=== PATIENT | male | born 1965 | race Hispanic/Latino ===

== ENCOUNTER 2017-06-27 12:11 | Inpatient (IN) | payer SELFPAY ==
[~2017-06-27] VITALS: Ht 190.5 cm; Wt 108.9 kg
[~2017-06-27 12:11] MED LIST: GABA-531 PO; HYDR-4060 PO; INS7030 SQ
[2017-06-27 12:43] LABS: BASOPHILS % (AUTO) 0.4 % (0.0-5.0); EOSINOPHILS % (AUTO) 0.9 % (0.0-8.0); HEMATOCRIT 31.2 % (42-54); LYMPHOCYTES % (AUTO) 14.8 % (21.0-51.0); MEAN CORPUSCULAR HEMOGLOBIN 28.5 pg (27.0-33.0); MEAN CORPUSCULAR HGB CONC 35.5 g/dL (32.0-36.0); MEAN CORPUSCULAR VOLUME 80.1 fL (79-99); MONOCYTES % (AUTO) 7.9 % (3.0-13.0); PLATELET COUNT (AUTO) 206 K/uL (130-400); RED BLOOD CELL COUNT(AUTO) 3.89 MIL/uL (4.50-6.20); RED CELL DISTRIBUTION WIDTH 15.5 % (11.0-15.5); WHITE BLOOD COUNT (AUTO) 7.2 K/uL (4.8-10.8)
[2017-06-27 12:48] LABS: CREATININE 1.1 mg/dL (0.5-1.5); POTASSIUM 3.9 mmol/L (3.5-5.1)
[2017-06-27 12:55] LABS: INR 0.97 (0.85-1.15); PARTIAL THROMBOPLASTIN TIME 24.3 SEC (26.3-35.5); PROTHROMBIN TIME 10.2 SEC (9.6-11.6)
[2017-06-27 13:04] LABS: ALBUMIN 2.9 g/dL (3.5-5.0); BILIRUBIN,DIRECT 0.1 mg/dL (0.0-0.3); BILIRUBIN,TOTAL 0.4 mg/dL (0.2-1.0); CREATINE KINASE MB 3.4 ng/mL (0.5-3.6)
[2017-06-27] MEDS ORDERED: FUROSEMIDE 10 MG/ML 4ML VIAL ONE (13:14)
[2017-06-27] MEDS ORDERED: NITROGLYCERIN 1GM/1 INCH PACKET TD ONE (13:15)
[2017-06-27 13:19] LABS: APPEARANCE,URINE Clear (CLEAR); BILIRUBIN,URINE Negative (NEGATIVE); COLOR,URINE Yellow (YELLOW); GLUCOSE, URINE (UA) Negative (NEGATIVE); KETONES,URINE Negative (NEGATIVE); LEUKOCYTE ESTERASE ,URINE Negative (NEGATIVE); NITRATE,URINE Negative (NEGATIVE); OCCULT BLOOD,URINE Trace (NEGATIVE); PROTEIN,URINE POS 2+ (NEGATIVE)
[2017-06-27] MEDS ORDERED: ONDANSETRON ODT 4 MG TAB ONE (13:22)
[2017-06-27 13:48] LABS: SQUAMOUS EPITHELIAL CELL,UR Few /HPF (0-2)
[2017-06-27 13:49] LABS: BACTERIA,URINE Rare /HPF (None Seen); WBC,URINE None Seen /HPF (0-1)
[2017-06-27] MEDS ORDERED: POTASSIUM CHLORIDE 20MEQ/100ML 100 ML IV PRN (17:15)
[2017-06-27] MEDS ORDERED: POTASSIUM CHLORIDE 20 MEQ ERTAB PO PRN (17:15)
[2017-06-27] MEDS ORDERED: ACETAMINOPHEN 325 MG TAB PO PRN (17:15)
[2017-06-27] MEDS ORDERED: ALBUTEROL SULFATE 0.083% 2.5 MG/3 ML INH IH PRN (17:15)
[2017-06-27] MEDS ORDERED: LIDOCAINE HCL-MPF 1% 2ML VIAL IVP PRN (17:15)
[2017-06-27] MEDS ORDERED: POTASSIUM CHLORIDE 10% ELIXIR 20 MEQ/15 ML UDCUP PO PRN (17:15)
[2017-06-27] MEDS ORDERED: LACTULOSE 20 GM/30 ML UDCUP PO PRN (17:15)
[2017-06-27 17:31] VITALS: BP 188/100
[2017-06-27] MEDS ORDERED: LISI10TA7 PO (17:39)
[2017-06-27] MEDS ORDERED: ISOS60TA4 PO (17:39)
[2017-06-27] MEDS ORDERED: INSU100I21 SQ (17:39)
[2017-06-27] MEDS ORDERED: HYDR100T27 PO (17:39)
[2017-06-27] MEDS ORDERED: METF10004 PO (17:39)
[2017-06-27] MEDS ORDERED: FURO40TA5 PO (17:39)
[2017-06-27] MEDS ORDERED: ATOR40TA71 PO (17:39)
[2017-06-27] MEDS ORDERED: METO-408 PO (17:39)
[2017-06-27] MEDS ORDERED: ASPI81TA40 PO (17:39)
[2017-06-27] MEDS ORDERED: SPIR25TA6 PO (17:39)
[2017-06-27] MEDS ORDERED: METO10TA3 PO (17:39)
[2017-06-27] MEDS ORDERED: CEPH500C2 PO (17:39)
[2017-06-27 19:25] VITALS: BP 178/81
[2017-06-27] MEDS ORDERED: ONDA4TAB10 PO (19:25)
[2017-06-27] MEDS: GUAIFENESIN-DM 200/20 MG 10 ML PO PRN (21:09)
[2017-06-27] MEDS: BUMETANIDE 0.25 MG/ML 4 ML VIAL IVP SCH (21:10)
[2017-06-27] MEDS: ONDANSETRON HCL MDV 20ML 2 MG/ML VIAL IV PRN (21:11)
[2017-06-27] MEDS: LEVOFLOXACIN 500 MG/D5W 100 ML 100 ML IV SCH (21:11)
[2017-06-27] MEDS: INSULIN HUMULIN R 100 UNIT/ML 3ML SQ SCH (21:33)
[2017-06-27 23:20] VITALS: BP 167/95
[2017-06-28] MEDS: GUAIFENESIN-DM 200/20 MG 10 ML PO PRN (01:11)
[2017-06-28 04:09] VITALS: BP 160/89
[2017-06-28] MEDS: INSULIN HUMULIN R 100 UNIT/ML 3ML SQ SCH ×4 (06:13→21:00)
[2017-06-28 06:32] LABS: HEMATOCRIT 29.9 % (42-54); MEAN CORPUSCULAR HEMOGLOBIN 28.5 pg (27.0-33.0); MEAN CORPUSCULAR VOLUME 81.4 fL (79-99); PLATELET COUNT (AUTO) 193 K/uL (130-400); RED BLOOD CELL COUNT(AUTO) 3.68 MIL/uL (4.50-6.20); RED CELL DISTRIBUTION WIDTH 15.5 % (11.0-15.5); WHITE BLOOD COUNT (AUTO) 6.7 K/uL (4.8-10.8)
[2017-06-28 06:37] LABS: CREATININE 1.2 mg/dL (0.5-1.5); MAGNESIUM 1.8 mg/dL (1.80-2.40); POTASSIUM 3.6 mmol/L (3.5-5.1)
[2017-06-28 06:51] LABS: B-TYPE NATRIURETIC PEPTIDE 730 pg/mL (0-100)
[2017-06-28 07:52] VITALS: BP 182/81
[2017-06-28] MEDS: BUMETANIDE 0.25 MG/ML 4 ML VIAL IVP SCH ×2 (08:13→21:29)
[2017-06-28] MEDS: PANTOPRAZOLE SODIUM 40 MG TABLET.DR PO SCH (08:14)
[2017-06-28] MEDS: HYDRALAZINE HCL 20 MG/ML VIAL IV PRN (08:27)
[2017-06-28 12:00] VITALS: BP 181/88
[2017-06-28] MEDS: METOCLOPRAMIDE 10 MG TABLET PO SCH ×2 (12:51→17:42)
[2017-06-28] MEDS: GABAPENTIN 300 MG CAPSULE PO SCH ×2 (14:17→21:30)
[2017-06-28 16:00] VITALS: BP 197/95
[2017-06-28] MEDS: METFORMIN HCL 500 MG TABLET PO SCH (17:57)
[2017-06-28 19:55] VITALS: BP 138/77
[2017-06-28] MEDS: LEVOFLOXACIN 500 MG/D5W 100 ML 100 ML IV SCH (21:29)
[2017-06-28] MEDS: ATORVASTATIN CALCIUM 40 MG TABLET PO SCH (21:30)
[2017-06-28] MEDS: METOPROLOL TARTRATE 25 MG TAB PO SCH (21:59)
[2017-06-28] MEDS: ONDANSETRON HCL MDV 20ML 2 MG/ML VIAL IV PRN (23:32)
[2017-06-28 23:51] VITALS: BP 125/67
[2017-06-29 04:00] VITALS: BP 125/75
[2017-06-29 05:57] LABS: CREATININE 1.6 mg/dL (0.5-1.5); POTASSIUM 3.8 mmol/L (3.5-5.1)
[2017-06-29] MEDS: INSULIN HUMULIN R 100 UNIT/ML 3ML SQ SCH ×4 (06:37→22:38)
[2017-06-29] MEDS: METOCLOPRAMIDE 10 MG TABLET PO SCH ×3 (06:43→19:12)
[2017-06-29 08:00] VITALS: BP 132/68
[2017-06-29] MEDS: SPIRONOLACTONE 25 MG TAB PO SCH (08:33)
[2017-06-29] MEDS: LISINOPRIL 10 MG TABLET PO SCH (08:33)
[2017-06-29] MEDS: PANTOPRAZOLE SODIUM 40 MG TABLET.DR PO SCH (08:33)
[2017-06-29] MEDS: ISOSORBIDE MONO 60 MG TAB.SR PO SCH (08:33)
[2017-06-29] MEDS: BUMETANIDE 0.25 MG/ML 4 ML VIAL IVP SCH ×2 (08:33→22:23)
[2017-06-29] MEDS: ASPIRIN 81 MG EC TAB PO SCH (08:33)
[2017-06-29] MEDS: METOPROLOL TARTRATE 25 MG TAB PO SCH ×2 (08:40→22:29)
[2017-06-29] MEDS: GABAPENTIN 300 MG CAPSULE PO SCH ×3 (08:41→22:23)
[2017-06-29 12:00] VITALS: BP 101/60
[2017-06-29] MEDS: METFORMIN HCL 500 MG TABLET PO SCH ×2 (12:22→19:12)
[2017-06-29 16:00] VITALS: BP 153/85
[2017-06-29 19:35] VITALS: BP 155/89
[2017-06-29] MEDS: ATORVASTATIN CALCIUM 40 MG TABLET PO SCH (22:23)
[2017-06-29] MEDS: LEVOFLOXACIN 500 MG/D5W 100 ML 100 ML IV SCH (22:23)
[2017-06-29 23:30] VITALS: BP 162/95
[2017-06-30] VITALS (14 sets, daily range): BP systolic 127–197; BP diastolic 61–105
[2017-06-30] MEDS: ONDANSETRON HCL MDV 20ML 2 MG/ML VIAL IV PRN ×3 (01:25→23:33)
[2017-06-30 03:52] LABS: HEMATOCRIT 27.2 % (42-54); MEAN CORPUSCULAR HEMOGLOBIN 27.8 pg (27.0-33.0); MEAN CORPUSCULAR HGB CONC 34.3 g/dL (32.0-36.0); PLATELET COUNT (AUTO) 176 K/uL (130-400); RED BLOOD CELL COUNT(AUTO) 3.36 MIL/uL (4.50-6.20); RED CELL DISTRIBUTION WIDTH 15.2 % (11.0-15.5); WHITE BLOOD COUNT (AUTO) 6.2 K/uL (4.8-10.8)
[2017-06-30 04:15] LABS: B-TYPE NATRIURETIC PEPTIDE 456 pg/mL (0-100)
[2017-06-30 04:17] LABS: CREATININE 1.9 mg/dL (0.5-1.5); POTASSIUM 3.9 mmol/L (3.5-5.1)
[2017-06-30] MEDS: INSULIN HUMULIN R 100 UNIT/ML 3ML SQ SCH ×4 (06:05→21:00)
[2017-06-30] MEDS: METOCLOPRAMIDE 10 MG TABLET PO SCH ×3 (06:32→16:51)
[2017-06-30] MEDS: LIDOCAINE HCL 1% 20 ML VIAL INJ SCH ×2 (09:30→15:40)
[2017-06-30] MEDS: ASPIRIN 81 MG EC TAB PO SCH (09:46)
[2017-06-30] MEDS: LISINOPRIL 10 MG TABLET PO SCH (09:46)
[2017-06-30] MEDS: GABAPENTIN 300 MG CAPSULE PO SCH ×3 (09:46→19:57)
[2017-06-30] MEDS: PANTOPRAZOLE SODIUM 40 MG TABLET.DR PO SCH (09:46)
[2017-06-30] MEDS: SPIRONOLACTONE 25 MG TAB PO SCH (09:46)
[2017-06-30] MEDS: BUMETANIDE 0.25 MG/ML 4 ML VIAL IVP SCH (09:47)
[2017-06-30] MEDS: METOPROLOL TARTRATE 25 MG TAB PO SCH ×2 (09:47→19:57)
[2017-06-30] MEDS: ISOSORBIDE MONO 60 MG TAB.SR PO SCH (09:47)
[2017-06-30] MEDS: METFORMIN HCL 500 MG TABLET PO SCH ×2 (13:06→15:55)
[2017-06-30] MEDS: GUAIFENESIN-DM 200/20 MG 10 ML PO PRN ×2 (16:54→23:33)
[2017-06-30 17:13] LABS: APPEARANCE BODY FLUID SLIGHTLY CLOUDY (CLEAR); COLOR,BODY FLUID YELLOW (LT YELLOW); SPECIMENTYPE,BODY FLUID PLEURAL; TOTAL VOLUME,BODY FLUID 70 mL
[2017-06-30 17:14] LABS: BODY FLUID RBC 800 /cu. mm.; BODY FLUID WBC 27 /cu. mm.
[2017-06-30 17:36] LABS: BF LYMPHOCYTE 86 %; BF MONOCYTE 5 %
[2017-06-30] MEDS: LEVOFLOXACIN 500 MG/D5W 100 ML 100 ML IV SCH (19:56)
[2017-06-30] MEDS: HYDRALAZINE HCL 20 MG/ML VIAL IV PRN (19:56)
[2017-06-30] MEDS: ATORVASTATIN CALCIUM 40 MG TABLET PO SCH (19:57)
[2017-07-01] MEDS ORDERED: LOPERAMIDE HCL 2 MG CAP PO SCH (01:45)
[2017-07-01 03:45] VITALS: BP 154/92
[2017-07-01] MEDS: GUAIFENESIN-DM 200/20 MG 10 ML PO PRN (05:13)
[2017-07-01 05:21] LABS: BASOPHILS % (AUTO) 0.4 % (0.0-5.0); HEMATOCRIT 26.8 % (42-54); MEAN CORPUSCULAR HEMOGLOBIN 28.2 pg (27.0-33.0); MEAN CORPUSCULAR VOLUME 80.4 fL (79-99); MONOCYTES % (AUTO) 10.1 % (3.0-13.0); NEUTROPHILS % (AUTO) 70.5 % (40.0-77.0); PLATELET COUNT (AUTO) 185 K/uL (130-400); RED BLOOD CELL COUNT(AUTO) 3.33 MIL/uL (4.50-6.20); RED CELL DISTRIBUTION WIDTH 15.3 % (11.0-15.5)
[2017-07-01 05:28] LABS: CREATININE 1.7 mg/dL (0.5-1.5)
[2017-07-01] MEDS: INSULIN HUMULIN R 100 UNIT/ML 3ML SQ SCH ×2 (06:52→11:30)
[2017-07-01 07:00] VITALS: BP 167/98
[2017-07-01] MEDS: SPIRONOLACTONE 25 MG TAB PO SCH (09:21)
[2017-07-01] MEDS: ASPIRIN 81 MG EC TAB PO SCH (09:21)
[2017-07-01] MEDS: METOCLOPRAMIDE 10 MG TABLET PO SCH ×2 (09:21→12:50)
[2017-07-01] MEDS: ISOSORBIDE MONO 60 MG TAB.SR PO SCH (09:21)
[2017-07-01] MEDS: GABAPENTIN 300 MG CAPSULE PO SCH (09:21)
[2017-07-01] MEDS: METOPROLOL TARTRATE 25 MG TAB PO SCH (09:22)
[2017-07-01] MEDS: LISINOPRIL 10 MG TABLET PO SCH (09:22)
[2017-07-01] MEDS: PANTOPRAZOLE SODIUM 40 MG TABLET.DR PO SCH (09:22)
[2017-07-01] MEDS: BUMETANIDE 0.25 MG/ML 4 ML VIAL IVP SCH (09:22)
[2017-07-01 11:00] VITALS: BP 166/93
[2017-07-01] MEDS: METFORMIN HCL 500 MG TABLET PO SCH (12:50)
[2017-07-01] MEDS ORDERED: LEVO250T2 PO (13:32)
== END 2017-07-01 14:29 | disposition home or self-care (01) | DRG 291 ==
LOC: EDH 12:11 → EDHIP 12:12 → 3AH 17:12
PROVIDERS: ADMIT Family Medicine; ATTEND Family Medicine
PROC: 0W9B3ZZ Drainage of Left Pleural Cavity, Percutaneous Approach (ICD-10-PCS; principal; 2017-06-30)
DX: I11.0 Hypertensive heart disease with heart failure (principal); J18.9 Pneumonia, unspecified organism; N17.0 Acute kidney failure with tubular necrosis; J90 Pleural effusion, not elsewhere classified; E11.9 Type 2 diabetes mellitus without complications; I50.9 Heart failure, unspecified; E66.01 Morbid (severe) obesity due to excess calories; T50.2X5A Adverse effect of carbonic-anhydrase inhibitors, benzothiadiazides and other diuretics, initial encounter; Z82.49 Family history of ischemic heart disease and other diseases of the circulatory system; Y92.89 Other specified places as the place of occurrence of the external cause
CPT/HCPCS: 32555; 36415; 71045; 80048; 80076; 81001; 82550; 82553; 82948; 83615; 83735; 83880; 84157; 84484; 85025; 85027; 85610; 85730; 87071; 87205; 89051; 93005; 94640; 94664; 99291; J0360; J1815; J1940; J1956; J3490

== ENCOUNTER 2017-07-07 21:30 | Observation (INO) | payer SELFPAY ==
[~2017-07-07] VITALS: Ht 190.5 cm; Wt 106.1 kg
[~2017-07-07 21:30] MED LIST changes: +ASPI81TA40 PO; +ATOR40TA71 PO; +FURO40TA5 PO; +HYDR100T27 PO; -INS7030 SQ; +INSU100I21 SQ; +ISOS60TA4 PO; +LEVO250T2 PO; +LISI10TA7 PO; +METF10004 PO; +METO-408 PO; +METO10TA3 PO; +ONDA4TAB10 PO; +SPIR25TA6 PO
[2017-07-07] MEDS ORDERED: ASPIRIN 325 MG TABLET ONE (21:42)
[2017-07-07 21:48] LABS: BASOPHILS % (AUTO) 0.4 % (0.0-5.0); EOSINOPHILS % (AUTO) 1.3 % (0.0-8.0); HEMATOCRIT 31.8 % (42-54); LYMPHOCYTES % (AUTO) 23.9 % (21.0-51.0); MEAN CORPUSCULAR HEMOGLOBIN 28.3 pg (27.0-33.0); MEAN CORPUSCULAR HGB CONC 34.8 g/dL (32.0-36.0); MEAN CORPUSCULAR VOLUME 81.4 fL (79-99); MONOCYTES % (AUTO) 7.1 % (3.0-13.0); NEUTROPHILS % (AUTO) 67.3 % (40.0-77.0); PLATELET COUNT (AUTO) 256 K/uL (130-400); RED CELL DISTRIBUTION WIDTH 15.5 % (11.0-15.5); WHITE BLOOD COUNT (AUTO) 7.5 K/uL (4.8-10.8)
[2017-07-07 21:59] LABS: CREATININE 1.4 mg/dL (0.5-1.5); POTASSIUM 3.7 mmol/L (3.5-5.1)
[2017-07-07 22:01] LABS: INR 0.95 (0.85-1.15); PARTIAL THROMBOPLASTIN TIME 23.3 SEC (26.3-35.5)
[2017-07-07 22:12] LABS: ALBUMIN 3.1 g/dL (3.5-5.0); BILIRUBIN,TOTAL 0.4 mg/dL (0.2-1.0); CREATINE KINASE MB 7.3 ng/mL (0.5-3.6)
[2017-07-07] MEDS ORDERED: ONDANSETRON HCL MDV 20ML 2 MG/ML VIAL ONE (22:14)
[2017-07-08] MEDS ORDERED: POTASSIUM CHLORIDE 20 MEQ ERTAB PO PRN (02:00)
[2017-07-08] MEDS ORDERED: NITROGLYCERIN 0.4 MG SL TAB SL PRN (02:00)
[2017-07-08] MEDS ORDERED: GLUCAGON 1MG KIT 1 MG ML IM PRN (02:00)
[2017-07-08] MEDS ORDERED: LIDOCAINE HCL-MPF 1% 2ML VIAL IVP PRN (02:00)
[2017-07-08] MEDS ORDERED: POTASSIUM CHLORIDE 10% ELIXIR 20 MEQ/15 ML UDCUP PO PRN (02:00)
[2017-07-08] MEDS ORDERED: POTASSIUM CHLORIDE 20MEQ/100ML 100 ML IV PRN (02:00)
[2017-07-08] MEDS ORDERED: HYDRALAZINE HCL 20 MG/ML VIAL IV PRN (02:00)
[2017-07-08] MEDS ORDERED: DEXTROSE 50%-WATER 50 ML DISP.SYRIN IV PRN (02:00)
[2017-07-08] MEDS ORDERED: FAMOTIDINE 20MG TAB 20 MG TAB PO SCH (02:00)
[2017-07-08] MEDS ORDERED: ACETAMINOPHEN EXTRA STRENGTH 500 MG TABLET ONE (04:53)
[2017-07-08] MEDS ORDERED: NITROGLYCERIN 1GM/1 INCH PACKET TD ONE (04:53)
[2017-07-08 05:33] LABS: CREATINE KINASE MB 4.8 ng/mL (0.5-3.6); CREATININE 1.2 mg/dL (0.5-1.5); POTASSIUM 4.1 mmol/L (3.5-5.1)
[2017-07-08] MEDS: INSULIN HUMULIN R 100 UNIT/ML 3ML SQ SCH ×4 (07:30→22:02)
[2017-07-08] MEDS ORDERED: ASPIRIN 81MG TAB.CHEW ONE (08:12)
[2017-07-08] MEDS ORDERED: FUROSEMIDE 40 MG TABLET ONE (08:12)
[2017-07-08] MEDS ORDERED: ENOXAPARIN SODIUM 40 MG/0.4 ML SYRINGE SQ ONE (08:13)
[2017-07-08] MEDS ORDERED: INSULIN HUMULIN R 100 UNIT/ML 3ML ONE (08:14)
[2017-07-08] MEDS: ASPIRIN 81MG TAB.CHEW PO SCH (08:20)
[2017-07-08] MEDS: ENOXAPARIN SODIUM 40 MG/0.4 ML SYRINGE SQ SCH (08:21)
[2017-07-08] MEDS: FUROSEMIDE 40 MG TABLET PO SCH ×2 (08:21→21:53)
[2017-07-08 09:26] VITALS: BP 146/90
[2017-07-08 12:00] VITALS: BP 186/93
[2017-07-08 16:00] VITALS: BP 185/103
[2017-07-08] MEDS: ONDANSETRON HCL MDV 20ML 2 MG/ML VIAL IVP PRN (18:14)
[2017-07-08 20:06] VITALS: BP 161/91
[2017-07-08] MEDS: METOPROLOL TARTRATE 25 MG TAB PO SCH (21:52)
[2017-07-08] MEDS: HYDRALAZINE HCL 25 MG TABLET PO SCH (21:53)
[2017-07-09 00:50] VITALS: BP 146/88
[2017-07-09 04:33] VITALS: BP 160/97
[2017-07-09 05:54] LABS: BASOPHILS % (AUTO) 0.7 % (0.0-5.0); EOSINOPHILS % (AUTO) 2.7 % (0.0-8.0); HEMATOCRIT 29.9 % (42-54); LYMPHOCYTES % (AUTO) 26.5 % (21.0-51.0); MEAN CORPUSCULAR HEMOGLOBIN 29.1 pg (27.0-33.0); MEAN CORPUSCULAR HGB CONC 36.2 g/dL (32.0-36.0); MEAN CORPUSCULAR VOLUME 80.5 fL (79-99); MONOCYTES % (AUTO) 8.8 % (3.0-13.0); NEUTROPHILS % (AUTO) 61.3 % (40.0-77.0); PLATELET COUNT (AUTO) 224 K/uL (130-400); RED BLOOD CELL COUNT(AUTO) 3.72 MIL/uL (4.50-6.20); RED CELL DISTRIBUTION WIDTH 15.2 % (11.0-15.5)
[2017-07-09] MEDS: INSULIN HUMULIN R 100 UNIT/ML 3ML SQ SCH ×3 (06:31→16:30)
[2017-07-09 07:48] VITALS: BP 183/100
[2017-07-09] MEDS ORDERED: LISINOPRIL 10 MG TABLET PO SCH (08:00)
[2017-07-09] MEDS ORDERED: SPIRONOLACTONE 25 MG TAB PO SCH (09:00)
[2017-07-09] MEDS ORDERED: ISOSORBIDE MONO 60 MG TAB.SR PO SCH (09:00)
[2017-07-09] MEDS: HYDRALAZINE HCL 25 MG TABLET PO SCH ×3 (10:25→16:59)
[2017-07-09] MEDS: FUROSEMIDE 40 MG TABLET PO SCH (10:25)
[2017-07-09] MEDS: METOPROLOL TARTRATE 25 MG TAB PO SCH (10:26)
[2017-07-09] MEDS: ASPIRIN 81MG TAB.CHEW PO SCH (10:26)
[2017-07-09] MEDS: ENOXAPARIN SODIUM 40 MG/0.4 ML SYRINGE SQ SCH (10:27)
[2017-07-09] MEDS: ONDANSETRON HCL MDV 20ML 2 MG/ML VIAL IVP PRN ×2 (10:30→16:59)
[2017-07-09 12:00] VITALS: BP 154/85
[2017-07-09 16:00] VITALS: BP 135/79
== END 2017-07-09 19:15 | disposition home or self-care (01) ==
LOC: EDH 21:30 → EDHIP 21:31 → 4CH 07-08 08:47
PROVIDERS: ADMIT Internal Medicine Nephrology; ATTEND Internal Medicine Nephrology
DX: R07.89 Other chest pain (principal); I11.0 Hypertensive heart disease with heart failure; I50.9 Heart failure, unspecified; R74.8 Abnormal levels of other serum enzymes; E11.65 Type 2 diabetes mellitus with hyperglycemia; E78.5 Hyperlipidemia, unspecified; K21.9 Gastro-esophageal reflux disease without esophagitis; Z82.49 Family history of ischemic heart disease and other diseases of the circulatory system; Z83.3 Family history of diabetes mellitus
CPT/HCPCS: 36415 ×3; 71045; 80048; 80053; 82550 ×2; 82553 ×2; 82948 ×7; 83874 ×2; 83880; 84484 ×3; 85025 ×2; 85610; 85730; 93005 ×3; 96372 ×2; 99285; G0378 ×46; J1650 ×2; J1815 ×5; J0360

== ENCOUNTER 2017-07-21 09:36 | Inpatient (IN) | payer SELFPAY ==
[~2017-07-21] VITALS: Ht 190.5 cm; Wt 121.4 kg
[~2017-07-21 09:36] MED LIST changes: -LEVO250T2 PO
[2017-07-21] MEDS ORDERED: ACETAMINOPHEN EXTRA STRENGTH 500 MG TABLET ONE (09:42)
[2017-07-21 10:08] LABS: BASOPHILS % (AUTO) 0.3 % (0.0-5.0); EOSINOPHILS % (AUTO) 1.1 % (0.0-8.0); HEMATOCRIT 33.2 % (42-54); LYMPHOCYTES % (AUTO) 10.2 % (21.0-51.0); MEAN CORPUSCULAR HEMOGLOBIN 27.7 pg (27.0-33.0); MEAN CORPUSCULAR VOLUME 81.4 fL (79-99); MONOCYTES % (AUTO) 5.5 % (3.0-13.0); NEUTROPHILS % (AUTO) 82.9 % (40.0-77.0); PLATELET COUNT (AUTO) 214 K/uL (130-400); RED BLOOD CELL COUNT(AUTO) 4.08 MIL/uL (4.50-6.20); RED CELL DISTRIBUTION WIDTH 15.2 % (11.0-15.5); WHITE BLOOD COUNT (AUTO) 6.4 K/uL (4.8-10.8)
[2017-07-21 10:17] LABS: CARBON DIOXIDE 28 mmol/L (21-32); CHLORIDE 106 mmol/L (101-111); CREATININE 1.4 mg/dL (0.5-1.5); GLOMERULAR FILTR. RATE CALC 57 mL/min (>60); GLUCOSE,RANDOM 118 mg/dL (70-105); POTASSIUM 4.8 mmol/L (3.5-5.1); SODIUM SERUM 143 mmol/L (136-145); UREA NITROGEN, BLOOD 25 mg/dL (7-18)
[2017-07-21 10:18] LABS: INR 0.89 (0.85-1.15); PARTIAL THROMBOPLASTIN TIME 22.6 SEC (26.3-35.5); PROTHROMBIN TIME 9.4 SEC (9.6-11.6)
[2017-07-21 10:31] LABS: ALANINE AMINOTRANSFERASE 32 U/L (12-78); ALBUMIN 3.2 g/dL (3.5-5.0); ASPARTATE AMINOTRANSFERASE 24 U/L (10-37); BILIRUBIN,TOTAL 0.2 mg/dL (0.2-1.0); CREATINE KINASE MB 6.9 ng/mL (0.5-3.6); CREATINE KINASE, TOTAL 262 U/L (21-232); MYOGLOBIN 194 ng/mL (10-92); TROPONIN I < 0.04 ng/mL (0.00-0.06)
[2017-07-21] MEDS ORDERED: NITROGLYCERIN 1GM/1 INCH PACKET TD ONE (10:34)
[2017-07-21] MEDS ORDERED: ASPIRIN 325 MG TABLET ONE (10:34)
[2017-07-21] MEDS ORDERED: ONDANSETRON HCL MDV 20ML 2 MG/ML VIAL ONE (10:34)
[2017-07-21] MEDS ORDERED: LEVOFLOXACIN 750 MG/D5W 150 ML 150 ML ONE (11:25)
[2017-07-21 11:30] LABS: APPEARANCE,URINE Clear (CLEAR); BILIRUBIN,URINE Negative (NEGATIVE); COLOR,URINE Yellow (YELLOW); GLUCOSE, URINE (UA) Negative (NEGATIVE); KETONES,URINE Negative (NEGATIVE); LEUKOCYTE ESTERASE ,URINE Negative (NEGATIVE); NITRATE,URINE Negative (NEGATIVE); OCCULT BLOOD,URINE Negative (NEGATIVE); PROTEIN,URINE POS 2+ (NEGATIVE)
[2017-07-21 12:05] LABS: BACTERIA,URINE None Seen /HPF (None Seen); RBC,URINE None Seen /HPF (0-1); WBC,URINE None Seen /HPF (0-1)
[2017-07-21 14:35] VITALS: BP 130/73
[2017-07-21] MEDS ORDERED: LACTULOSE 20 GM/30 ML UDCUP PO PRN (14:45)
[2017-07-21] MEDS ORDERED: HYDRALAZINE HCL 20 MG/ML VIAL IV PRN (14:45)
[2017-07-21] MEDS ORDERED: ACETAMINOPHEN 325 MG TAB PO PRN (14:45)
[2017-07-21] MEDS ORDERED: IBUP-2077 PO (14:55)
[2017-07-21 16:06] VITALS: BP 130/69
[2017-07-21] MEDS ORDERED: SODIUM CHLORIDE 0.9% 1000ML 1,000 ML IV SCH (16:15)
[2017-07-21] MEDS ORDERED: IPRATROPIUM/ALBUTEROL SULFATE 3 ML SOLUTION IH PRN ×2 (16:15)
[2017-07-21] MEDS: SODIUM CHLORIDE 0.9% 1000ML 1,000 ML IV SCH (16:59)
[2017-07-21] MEDS: METHYLPREDNISOLONE SOD SUCC 40MG/ML 1ML IVP SCH (16:59)
[2017-07-21] MEDS: CEFTRIAXONE SODIUM 1 GM IVP SCH (16:59)
[2017-07-21] MEDS: ONDANSETRON HCL MDV 20ML 2 MG/ML VIAL IV PRN (17:16)
[2017-07-21] MEDS: GUAIFENESIN-DM 200/20 MG 10 ML PO PRN (17:58)
[2017-07-21] MEDS: IPRATROPIUM/ALBUTEROL SULFATE 3 ML SOLUTION IH SCH ×2 (18:50→23:53)
[2017-07-21 19:40] VITALS: BP 206/98
[2017-07-21 20:45] VITALS: BP 160/90
[2017-07-21] MEDS: GABAPENTIN 300 MG CAPSULE PO SCH (21:40)
[2017-07-21] MEDS: ATORVASTATIN CALCIUM 40 MG TABLET PO SCH (21:40)
[2017-07-21] MEDS: HYDRALAZINE HCL 25 MG TABLET PO SCH (21:41)
[2017-07-21] MEDS: FUROSEMIDE 40 MG TABLET PO SCH (21:41)
[2017-07-21] MEDS: INSULIN HUMULIN R 100 UNIT/ML 3ML SQ SCH (22:08)
[2017-07-21 23:28] VITALS: BP 177/93
[2017-07-22] MEDS: INSULIN HUMULIN R 100 UNIT/ML 3ML SQ SCH ×4 (01:34→21:23)
[2017-07-22] MEDS: METHYLPREDNISOLONE SOD SUCC 40MG/ML 1ML IVP SCH ×3 (01:36→17:17)
[2017-07-22 03:43] LABS: BASOPHILS % (AUTO) 0.1 % (0.0-5.0); HEMATOCRIT 29.7 % (42-54); LYMPHOCYTES % (AUTO) 3.4 % (21.0-51.0); MEAN CORPUSCULAR HEMOGLOBIN 27.6 pg (27.0-33.0); MEAN CORPUSCULAR HGB CONC 33.6 g/dL (32.0-36.0); NEUTROPHILS % (AUTO) 92.5 % (40.0-77.0); PLATELET COUNT (AUTO) 147 K/uL (130-400); RED BLOOD CELL COUNT(AUTO) 3.62 MIL/uL (4.50-6.20); RED CELL DISTRIBUTION WIDTH 15.2 % (11.0-15.5); WHITE BLOOD COUNT (AUTO) 11.2 K/uL (4.8-10.8)
[2017-07-22 03:48] VITALS: BP 126/79
[2017-07-22 03:54] LABS: CREATININE 1.9 mg/dL (0.5-1.5); MAGNESIUM 1.8 mg/dL (1.80-2.40); POTASSIUM 5.7 mmol/L (3.5-5.1)
[2017-07-22] MEDS: SODIUM CHLORIDE 0.9% 1000ML 1,000 ML IV SCH ×2 (05:05→17:19)
[2017-07-22] MEDS: IPRATROPIUM/ALBUTEROL SULFATE 3 ML SOLUTION IH SCH ×4 (05:59→23:38)
[2017-07-22 07:32] VITALS: BP 154/89
[2017-07-22] MEDS: HYDRALAZINE HCL 25 MG TABLET PO SCH ×4 (08:57→20:14)
[2017-07-22] MEDS: LISINOPRIL 10 MG TABLET PO SCH (08:57)
[2017-07-22] MEDS: ASPIRIN 81 MG EC TAB PO SCH (08:57)
[2017-07-22] MEDS: ISOSORBIDE MONO 60 MG TAB.SR PO SCH (08:57)
[2017-07-22] MEDS: PANTOPRAZOLE SODIUM 40 MG TABLET.DR PO SCH (08:57)
[2017-07-22] MEDS: GABAPENTIN 300 MG CAPSULE PO SCH ×3 (08:58→20:14)
[2017-07-22] MEDS: SPIRONOLACTONE 25 MG TAB PO SCH (08:58)
[2017-07-22] MEDS: ENOXAPARIN SODIUM 30 MG/0.3 ML SQ SCH (09:00)
[2017-07-22] MEDS: Metoprolol Succinate 25 MG PO SCH (09:00)
[2017-07-22] MEDS: INSULIN GLARGINE 100 UNITS/ML 10 ML VIAL SQ SCH (09:04)
[2017-07-22] MEDS: FUROSEMIDE 40 MG TABLET PO SCH ×2 (09:05→20:15)
[2017-07-22] MEDS: ONDANSETRON HCL MDV 20ML 2 MG/ML VIAL IV PRN (09:13)
[2017-07-22 10:58] VITALS: BP 144/73
[2017-07-22] MEDS: LEVOFLOXACIN 500 MG/D5W 100 ML 100 ML IV SCH (11:46)
[2017-07-22] MEDS: GUAIFENESIN-DM 200/20 MG 10 ML PO PRN (11:50)
[2017-07-22] MEDS: METFORMIN HCL 500 MG TABLET PO SCH ×2 (11:50→17:17)
[2017-07-22] MEDS ORDERED: SODIUM POLYSTYRENE SULFONATE 15 GM/60 ML ML PO SCH (14:00)
[2017-07-22 16:05] VITALS: BP 152/76
[2017-07-22] MEDS: CEFTRIAXONE SODIUM 1 GM IVP SCH (17:15)
[2017-07-22 19:07] VITALS: BP 140/73
[2017-07-22] MEDS: ATORVASTATIN CALCIUM 40 MG TABLET PO SCH (20:15)
[2017-07-22 23:30] VITALS: BP 125/64
[2017-07-23] MEDS: METHYLPREDNISOLONE SOD SUCC 40MG/ML 1ML IVP SCH ×3 (00:30→16:54)
[2017-07-23 03:19] VITALS: BP 139/74
[2017-07-23 03:57] LABS: HEMATOCRIT 26.7 % (42-54); MEAN CORPUSCULAR HEMOGLOBIN 28.9 pg (27.0-33.0); MEAN CORPUSCULAR HGB CONC 34.9 g/dL (32.0-36.0); MEAN CORPUSCULAR VOLUME 82.8 fL (79-99); PLATELET COUNT (AUTO) 168 K/uL (130-400); RED BLOOD CELL COUNT(AUTO) 3.23 MIL/uL (4.50-6.20); RED CELL DISTRIBUTION WIDTH 15.6 % (11.0-15.5); WHITE BLOOD COUNT (AUTO) 11.9 K/uL (4.8-10.8)
[2017-07-23 04:06] LABS: CREATININE 1.8 mg/dL (0.5-1.5); POTASSIUM 4.9 mmol/L (3.5-5.1)
[2017-07-23 04:11] LABS: HEMOGLOBIN A1C 7.9 % (4.0-6.0)
[2017-07-23] MEDS: IPRATROPIUM/ALBUTEROL SULFATE 3 ML SOLUTION IH SCH ×4 (05:56→23:10)
[2017-07-23] MEDS: GUAIFENESIN-DM 200/20 MG 10 ML PO PRN ×2 (06:16→21:35)
[2017-07-23] MEDS: INSULIN HUMULIN R 100 UNIT/ML 3ML SQ SCH ×4 (06:17→21:23)
[2017-07-23 07:00] VITALS: BP 167/89
[2017-07-23] MEDS: Metoprolol Succinate 25 MG PO SCH (09:00)
[2017-07-23] MEDS: HYDRALAZINE HCL 25 MG TABLET PO SCH ×4 (09:29→21:25)
[2017-07-23] MEDS: SPIRONOLACTONE 25 MG TAB PO SCH (09:29)
[2017-07-23] MEDS: FUROSEMIDE 40 MG TABLET PO SCH ×2 (09:29→21:24)
[2017-07-23] MEDS: ASPIRIN 81 MG EC TAB PO SCH (09:30)
[2017-07-23] MEDS: LISINOPRIL 10 MG TABLET PO SCH (09:30)
[2017-07-23] MEDS: GABAPENTIN 300 MG CAPSULE PO SCH ×3 (09:30→21:24)
[2017-07-23] MEDS: ISOSORBIDE MONO 60 MG TAB.SR PO SCH (09:30)
[2017-07-23] MEDS: ENOXAPARIN SODIUM 30 MG/0.3 ML SQ SCH (09:30)
[2017-07-23] MEDS: PANTOPRAZOLE SODIUM 40 MG TABLET.DR PO SCH (09:30)
[2017-07-23] MEDS: INSULIN GLARGINE 100 UNITS/ML 10 ML VIAL SQ SCH (09:32)
[2017-07-23] MEDS: ONDANSETRON HCL MDV 20ML 2 MG/ML VIAL IV PRN ×2 (09:44→21:36)
[2017-07-23 11:00] VITALS: BP 178/94
[2017-07-23] MEDS: LEVOFLOXACIN 500 MG/D5W 100 ML 100 ML IV SCH (12:31)
[2017-07-23] MEDS: METFORMIN HCL 500 MG TABLET PO SCH ×2 (12:31→16:54)
[2017-07-23] MEDS: SODIUM CHLORIDE 0.9% 1000ML 1,000 ML IV SCH (14:08)
[2017-07-23 16:00] VITALS: BP 180/86
[2017-07-23] MEDS: CEFTRIAXONE SODIUM 1 GM IVP SCH (16:54)
[2017-07-23 19:09] VITALS: BP 154/88
[2017-07-23] MEDS ORDERED: INSULIN GLARGINE 100 UNITS/ML 10 ML VIAL SQ SCH (21:00)
[2017-07-23] MEDS: ATORVASTATIN CALCIUM 40 MG TABLET PO SCH (21:24)
[2017-07-23 23:21] VITALS: BP 140/79
[2017-07-24] MEDS: GUAIFENESIN-DM 200/20 MG 10 ML PO PRN ×2 (02:05→06:05)
[2017-07-24 03:20] VITALS: BP 114/60
[2017-07-24 03:51] LABS: HEMATOCRIT 27.2 % (42-54); MEAN CORPUSCULAR HEMOGLOBIN 27.6 pg (27.0-33.0); MEAN CORPUSCULAR HGB CONC 33.4 g/dL (32.0-36.0); MEAN CORPUSCULAR VOLUME 82.6 fL (79-99); PLATELET COUNT (AUTO) 175 K/uL (130-400); RED BLOOD CELL COUNT(AUTO) 3.29 MIL/uL (4.50-6.20); RED CELL DISTRIBUTION WIDTH 15.5 % (11.0-15.5); WHITE BLOOD COUNT (AUTO) 12.9 K/uL (4.8-10.8)
[2017-07-24 04:12] LABS: CREATININE 1.7 mg/dL (0.5-1.5); POTASSIUM 4.1 mmol/L (3.5-5.1)
[2017-07-24] MEDS: IPRATROPIUM/ALBUTEROL SULFATE 3 ML SOLUTION IH SCH ×2 (06:00→11:09)
[2017-07-24 07:00] VITALS: BP 133/74
[2017-07-24] MEDS: INSULIN HUMULIN R 100 UNIT/ML 3ML SQ SCH ×2 (07:17→11:00)
[2017-07-24] MEDS: INSULIN GLARGINE 100 UNITS/ML 10 ML VIAL SQ SCH (08:00)
[2017-07-24] MEDS: HYDRALAZINE HCL 25 MG TABLET PO SCH (08:21)
[2017-07-24] MEDS: FUROSEMIDE 40 MG TABLET PO SCH (08:21)
[2017-07-24] MEDS: PANTOPRAZOLE SODIUM 40 MG TABLET.DR PO SCH (08:22)
[2017-07-24] MEDS: SPIRONOLACTONE 25 MG TAB PO SCH (08:22)
[2017-07-24] MEDS: GABAPENTIN 300 MG CAPSULE PO SCH (08:22)
[2017-07-24] MEDS: LISINOPRIL 10 MG TABLET PO SCH (08:22)
[2017-07-24] MEDS: ISOSORBIDE MONO 60 MG TAB.SR PO SCH (08:22)
[2017-07-24] MEDS: ASPIRIN 81 MG EC TAB PO SCH (08:22)
[2017-07-24] MEDS: ENOXAPARIN SODIUM 30 MG/0.3 ML SQ SCH (08:23)
[2017-07-24] MEDS: Metoprolol Succinate 25 MG PO SCH (08:23)
[2017-07-24] MEDS: SODIUM CHLORIDE 0.9% 1000ML 1,000 ML IV SCH (09:51)
[2017-07-24 11:00] VITALS: BP 121/68
== END 2017-07-24 13:00 | disposition home or self-care (01) | DRG 871 ==
LOC: EDH 09:36 → EDHIP 09:37 → 2AH 14:28
PROVIDERS: ADMIT Family Medicine; ATTEND Family Medicine
DX: A41.9 Sepsis, unspecified organism (principal); J18.9 Pneumonia, unspecified organism; J96.00 Acute respiratory failure, unspecified whether with hypoxia or hypercapnia; I11.0 Hypertensive heart disease with heart failure; K31.84 Gastroparesis; I50.9 Heart failure, unspecified; E10.43 Type 1 diabetes mellitus with diabetic autonomic (poly)neuropathy; E66.9 Obesity, unspecified; J20.9 Acute bronchitis, unspecified; G89.29 Other chronic pain; M54.2 Cervicalgia; K21.9 Gastro-esophageal reflux disease without esophagitis; E78.5 Hyperlipidemia, unspecified; Z82.49 Family history of ischemic heart disease and other diseases of the circulatory system; Z68.33 Body mass index [BMI] 33.0-33.9, adult; Z79.899 Other long term (current) drug therapy
CPT/HCPCS: 36415; 71045; 80048; 80053; 81001; 82550; 82553; 82948; 83036; 83605; 83735; 83874; 83880; 84484; 85025; 85027; 85610; 85730; 87040; 87088; 87633; 93005; 94640; 94664; 99291; A4218; J0360; J0696; J1650; J1815; J1956; J2920; J7030

== ENCOUNTER 2017-08-02 12:26 | Inpatient (IN) | payer SELFPAY ==
[~2017-08-02] VITALS: Ht 190.5 cm; Wt 116.5 kg
[~2017-08-02 12:26] MED LIST changes: +IBUP-2077 PO
[2017-08-02 12:46] LABS: BASOPHILS % (AUTO) 0.2 % (0.0-5.0); EOSINOPHILS % (AUTO) 1.4 % (0.0-8.0); HEMATOCRIT 28.9 % (42-54); LYMPHOCYTES % (AUTO) 13.1 % (21.0-51.0); MEAN CORPUSCULAR HEMOGLOBIN 28.6 pg (27.0-33.0); MEAN CORPUSCULAR HGB CONC 35.2 g/dL (32.0-36.0); MEAN CORPUSCULAR VOLUME 81.1 fL (79-99); MONOCYTES % (AUTO) 6.3 % (3.0-13.0); PLATELET COUNT (AUTO) 183 K/uL (130-400); RED BLOOD CELL COUNT(AUTO) 3.56 MIL/uL (4.50-6.20); WHITE BLOOD COUNT (AUTO) 6.9 K/uL (4.8-10.8)
[2017-08-02] MEDS ORDERED: FUROSEMIDE 10 MG/ML 4ML VIAL ONE (12:55)
[2017-08-02] MEDS ORDERED: ALBUMIN (HUMAN) 25% 50 ML IV ONE (12:55)
[2017-08-02 12:57] LABS: INR 0.98 (0.85-1.15); PARTIAL THROMBOPLASTIN TIME 23.6 SEC (26.3-35.5); PROTHROMBIN TIME 10.3 SEC (9.6-11.6)
[2017-08-02 13:10] LABS: B-TYPE NATRIURETIC PEPTIDE 798 pg/mL (0-100)
[2017-08-02 13:32] LABS: CREATININE 1.3 mg/dL (0.5-1.5); POTASSIUM 4.5 mmol/L (3.5-5.1)
[2017-08-02 14:11] LABS: ALBUMIN 2.8 g/dL (3.5-5.0); BILIRUBIN,TOTAL 0.3 mg/dL (0.2-1.0); CREATINE KINASE MB 4.8 ng/mL (0.5-3.6); TOTAL PROTEIN, SERUM 7.2 g/dL (6.0-8.3)
[2017-08-02 18:02] VITALS: BP 200/111
[2017-08-02] MEDS ORDERED: LEVO500T89 PO (18:36)
[2017-08-02 19:00] VITALS: BP 195/112
[2017-08-02] MEDS ORDERED: PHARMACY COMMUNICATION MISC SCH (19:15)
[2017-08-02] MEDS ORDERED: LIDOCAINE HCL-MPF 1% 2ML VIAL IVP PRN (19:15)
[2017-08-02] MEDS ORDERED: DEXTROSE 50%-WATER 50 ML DISP.SYRIN IV PRN (19:15)
[2017-08-02] MEDS ORDERED: POTASSIUM CHLORIDE 10% ELIXIR 20 MEQ/15 ML UDCUP PO PRN (19:15)
[2017-08-02] MEDS ORDERED: GLUCAGON 1MG KIT 1 MG ML IM PRN (19:15)
[2017-08-02] MEDS ORDERED: POTASSIUM CHLORIDE 20MEQ/100ML 100 ML IV PRN (19:15)
[2017-08-02] MEDS: ATORVASTATIN CALCIUM 40 MG TABLET PO SCH (20:10)
[2017-08-02] MEDS: METOPROLOL TARTRATE 25 MG TAB PO SCH (20:10)
[2017-08-02] MEDS: FUROSEMIDE 10 MG/ML 4ML VIAL IVP SCH (20:10)
[2017-08-02] MEDS: FAMOTIDINE 20MG TAB 20 MG TAB PO SCH (20:10)
[2017-08-02] MEDS: HEPARIN SODIUM 5000UNIT/ML 1ML VIAL SQ SCH (20:20)
[2017-08-02] MEDS: GABAPENTIN 300 MG CAPSULE PO SCH (20:23)
[2017-08-02] MEDS: HYDRALAZINE HCL 25 MG TABLET PO SCH (20:23)
[2017-08-02] MEDS: HYDROCODONE/ACETAMINOPHEN 5/325 MG TAB PO PRN (20:24)
[2017-08-02 21:49] VITALS: BP 179/93
[2017-08-02] MEDS ORDERED: ONDANSETRON HCL MDV 20ML 2 MG/ML VIAL IVP PRN (22:30)
[2017-08-02] MEDS ORDERED: HYDRALAZINE HCL 20 MG/ML VIAL IV PRN (22:30)
[2017-08-02] MEDS ORDERED: ACETAMINOPHEN 325 MG TAB PO PRN (22:30)
[2017-08-02] MEDS ORDERED: ONDANSETRON HCL 4 MG/2 ML VIAL ONE (22:32)
[2017-08-02] MEDS: INSULIN HUMULIN R 100 UNIT/ML 3ML SQ SCH (22:58)
[2017-08-02] MEDS: ALPRAZOLAM 0.5 MG TABLET PO PRN (22:59)
[2017-08-03] VITALS: BP 134/78
[2017-08-03 04:00] VITALS: BP 137/72
[2017-08-03 06:02] LABS: HEMATOCRIT 28.7 % (42-54); MEAN CORPUSCULAR HEMOGLOBIN 27.8 pg (27.0-33.0); MEAN CORPUSCULAR HGB CONC 34.2 g/dL (32.0-36.0); MEAN CORPUSCULAR VOLUME 81.2 fL (79-99); PLATELET COUNT (AUTO) 186 K/uL (130-400); RED BLOOD CELL COUNT(AUTO) 3.53 MIL/uL (4.50-6.20); RED CELL DISTRIBUTION WIDTH 14.7 % (11.0-15.5); WHITE BLOOD COUNT (AUTO) 7.1 K/uL (4.8-10.8)
[2017-08-03 06:12] LABS: CREATININE 1.2 mg/dL (0.5-1.5); POTASSIUM 3.6 mmol/L (3.5-5.1)
[2017-08-03] MEDS: INSULIN HUMULIN R 100 UNIT/ML 3ML SQ SCH ×4 (07:11→21:00)
[2017-08-03 07:54] VITALS: BP 189/100
[2017-08-03] MEDS: HEPARIN SODIUM 5000UNIT/ML 1ML VIAL SQ SCH ×2 (08:00→18:40)
[2017-08-03] MEDS ORDERED: LISINOPRIL 10 MG TABLET PO SCH (08:00)
[2017-08-03] MEDS: FUROSEMIDE 10 MG/ML 4ML VIAL IVP SCH ×2 (08:02→18:30)
[2017-08-03] MEDS: METOCLOPRAMIDE 10 MG TABLET PO SCH ×3 (08:02→16:44)
[2017-08-03] MEDS: FAMOTIDINE 20MG TAB 20 MG TAB PO SCH ×2 (08:57→21:39)
[2017-08-03] MEDS: GABAPENTIN 300 MG CAPSULE PO SCH ×3 (08:57→21:39)
[2017-08-03] MEDS: HYDRALAZINE HCL 25 MG TABLET PO SCH ×4 (08:57→21:38)
[2017-08-03] MEDS: ASPIRIN 81 MG EC TAB PO SCH (08:57)
[2017-08-03] MEDS: ISOSORBIDE MONO 60 MG TAB.SR PO SCH (08:58)
[2017-08-03] MEDS: METOPROLOL TARTRATE 25 MG TAB PO SCH ×2 (08:58→21:39)
[2017-08-03] MEDS: LEVOFLOXACIN 500 MG TABLET PO SCH (08:58)
[2017-08-03] MEDS: IBUPROFEN 800 MG TAB PO PRN (08:59)
[2017-08-03] MEDS: INSULIN GLARGINE 100 UNITS/ML 10 ML VIAL SQ SCH (09:05)
[2017-08-03 11:30] VITALS: BP 181/92
[2017-08-03] MEDS: METFORMIN HCL 500 MG TABLET PO SCH ×2 (13:00→18:31)
[2017-08-03 16:01] VITALS: BP 125/82
[2017-08-03] MEDS ORDERED: QVAR IH SCH (18:00)
[2017-08-03] MEDS: HYDROCODONE/ACETAMINOPHEN 5/325 MG TAB PO PRN (18:31)
[2017-08-03] MEDS: IPRATROPIUM/ALBUTEROL SULFATE 3 ML SOLUTION IH SCH ×2 (19:00→23:56)
[2017-08-03 19:30] VITALS: BP 146/77
[2017-08-03] MEDS: LISINOPRIL 10 MG TABLET PO SCH (21:38)
[2017-08-03] MEDS: ATORVASTATIN CALCIUM 40 MG TABLET PO SCH (21:39)
[2017-08-03] MEDS ORDERED: POLYETHYLENE GLYCOL 3350 17 GM POWD.PACK ONE (21:54)
[2017-08-03] MEDS ORDERED: DOCUSATE SODIUM 100 MG CAP PO ONE ×2 (21:54→23:30)
[2017-08-03] MEDS ORDERED: GUAIFENESIN SUGAR-FREE 100 MG/5 ML UDCUP ONE (21:56)
[2017-08-03] MEDS: POTASSIUM CHLORIDE 20 MEQ ERTAB PO PRN ×2 (22:01→23:58)
[2017-08-03] MEDS: ALPRAZOLAM 0.5 MG TABLET PO PRN (23:58)
[2017-08-04] VITALS: BP 139/76
[2017-08-04 03:30] VITALS: BP 155/84
[2017-08-04 04:35] LABS: ABG BASE EXCESS 4.2 mmol/L (-2.0-3.0); ABG HCO3 27.5 mmol/L (21.0-28.0); ABG OXYGEN SATURATION 94.6 % (95.0-99.0); ABG PCO2 37 mmHg (35-48)
[2017-08-04 05:06] LABS: BASOPHILS % (AUTO) 0.3 % (0.0-5.0); HEMATOCRIT 26.7 % (42-54); LYMPHOCYTES % (AUTO) 14.9 % (21.0-51.0); MEAN CORPUSCULAR HGB CONC 35.9 g/dL (32.0-36.0); MEAN CORPUSCULAR VOLUME 80.9 fL (79-99); MONOCYTES % (AUTO) 8.1 % (3.0-13.0); NEUTROPHILS % (AUTO) 75.7 % (40.0-77.0); PLATELET COUNT (AUTO) 192 K/uL (130-400); RED CELL DISTRIBUTION WIDTH 15.2 % (11.0-15.5); WHITE BLOOD COUNT (AUTO) 7.7 K/uL (4.8-10.8)
[2017-08-04 05:32] LABS: CREATININE 1.5 mg/dL (0.5-1.5); MAGNESIUM 1.8 mg/dL (1.80-2.40); POTASSIUM 3.6 mmol/L (3.5-5.1); THYROID STIMULATING HORMONE 1.68 uIU/mL (0.36-3.74)
[2017-08-04] MEDS: IPRATROPIUM/ALBUTEROL SULFATE 3 ML SOLUTION IH SCH ×4 (06:41→23:29)
[2017-08-04] MEDS: BUDESONIDE 0.5 MG/2 ML INH IH SCH ×2 (07:01→18:46)
[2017-08-04] MEDS: INSULIN HUMULIN R 100 UNIT/ML 3ML SQ SCH ×3 (07:30→21:00)
[2017-08-04 08:00] VITALS: BP 180/87
[2017-08-04] MEDS: POLYETHYLENE GLYCOL 3350 17 GM POWD.PACK PO SCH (09:00)
[2017-08-04] MEDS: HYDRALAZINE HCL 25 MG TABLET PO SCH ×4 (09:00→20:30)
[2017-08-04] MEDS: ASPIRIN 81 MG EC TAB PO SCH (10:10)
[2017-08-04] MEDS: ISOSORBIDE MONO 60 MG TAB.SR PO SCH (10:10)
[2017-08-04] MEDS: GABAPENTIN 300 MG CAPSULE PO SCH ×3 (10:10→20:31)
[2017-08-04] MEDS: METOPROLOL TARTRATE 25 MG TAB PO SCH (10:10)
[2017-08-04] MEDS: DOCUSATE SODIUM 100 MG CAP PO SCH ×2 (10:11→20:29)
[2017-08-04] MEDS: METOCLOPRAMIDE 10 MG TABLET PO SCH ×4 (10:11→16:20)
[2017-08-04] MEDS: LEVOFLOXACIN 500 MG TABLET PO SCH (10:11)
[2017-08-04] MEDS: FAMOTIDINE 20MG TAB 20 MG TAB PO SCH ×2 (10:12→20:29)
[2017-08-04] MEDS: LISINOPRIL 10 MG TABLET PO SCH ×2 (10:13→20:31)
[2017-08-04] MEDS: FUROSEMIDE 10 MG/ML 4ML VIAL IVP SCH ×2 (10:14→20:47)
[2017-08-04] MEDS: INSULIN GLARGINE 100 UNITS/ML 10 ML VIAL SQ SCH (10:29)
[2017-08-04] MEDS: HEPARIN SODIUM 5000UNIT/ML 1ML VIAL SQ SCH ×2 (10:29→20:46)
[2017-08-04 12:00] VITALS: BP 181/90
[2017-08-04] MEDS: GUAIFENESIN SUGAR-FREE 100 MG/5 ML UDCUP PO PRN ×2 (12:55→22:42)
[2017-08-04] MEDS: METFORMIN HCL 500 MG TABLET PO SCH ×2 (12:56→16:19)
[2017-08-04 16:00] VITALS: BP 142/73
[2017-08-04] MEDS: HYDROCODONE/ACETAMINOPHEN 5/325 MG TAB PO PRN ×2 (16:19→22:44)
[2017-08-04] MEDS: ATORVASTATIN CALCIUM 40 MG TABLET PO SCH (20:31)
[2017-08-04 20:36] VITALS: BP 130/61
[2017-08-04] MEDS ORDERED: METOPROLOL TARTRATE 25 MG TAB PO SCH (21:00)
[2017-08-04] MEDS: ALPRAZOLAM 0.5 MG TABLET PO PRN (22:42)
[2017-08-04] MEDS: IBUPROFEN 800 MG TAB PO PRN (22:43)
[2017-08-05 00:04] VITALS: BP 120/62
[2017-08-05 03:58] VITALS: BP 110/55
[2017-08-05 04:08] LABS: HEMATOCRIT 24.9 % (42-54); MEAN CORPUSCULAR HEMOGLOBIN 28.3 pg (27.0-33.0); MEAN CORPUSCULAR HGB CONC 34.7 g/dL (32.0-36.0); MEAN CORPUSCULAR VOLUME 81.5 fL (79-99); PLATELET COUNT (AUTO) 172 K/uL (130-400); RED BLOOD CELL COUNT(AUTO) 3.05 MIL/uL (4.50-6.20); RED CELL DISTRIBUTION WIDTH 14.8 % (11.0-15.5); WHITE BLOOD COUNT (AUTO) 6.3 K/uL (4.8-10.8)
[2017-08-05 04:31] LABS: CREATININE 1.8 mg/dL (0.5-1.5); MAGNESIUM 1.5 mg/dL (1.80-2.40); PHOSPHORUS 5.1 mg/dL (2.5-4.9); POTASSIUM 3.4 mmol/L (3.5-5.1)
[2017-08-05] MEDS: BUDESONIDE 0.5 MG/2 ML INH IH SCH (06:02)
[2017-08-05] MEDS: IPRATROPIUM/ALBUTEROL SULFATE 3 ML SOLUTION IH SCH ×2 (06:02→11:05)
[2017-08-05] MEDS: HEPARIN SODIUM 5000UNIT/ML 1ML VIAL SQ SCH (06:39)
[2017-08-05] MEDS: METOCLOPRAMIDE 10 MG TABLET PO SCH ×3 (06:40→12:09)
[2017-08-05] MEDS: FUROSEMIDE 10 MG/ML 4ML VIAL IVP SCH (06:40)
[2017-08-05] MEDS: INSULIN HUMULIN R 100 UNIT/ML 3ML SQ SCH ×2 (06:41→11:30)
[2017-08-05 08:00] VITALS: BP 126/64
[2017-08-05] MEDS ORDERED: METOPROLOL TARTRATE 25 MG TAB PO SCH (09:00)
[2017-08-05] MEDS ORDERED: ISOSORBIDE MONO 60 MG TAB.SR PO SCH (09:00)
[2017-08-05] MEDS: HYDRALAZINE HCL 25 MG TABLET PO SCH ×2 (09:48→13:46)
[2017-08-05] MEDS: GABAPENTIN 300 MG CAPSULE PO SCH ×2 (09:50→13:45)
[2017-08-05] MEDS: LEVOFLOXACIN 500 MG TABLET PO SCH (09:50)
[2017-08-05] MEDS: DOCUSATE SODIUM 100 MG CAP PO SCH (09:50)
[2017-08-05] MEDS: POLYETHYLENE GLYCOL 3350 17 GM POWD.PACK PO SCH (09:51)
[2017-08-05] MEDS: FAMOTIDINE 20MG TAB 20 MG TAB PO SCH (09:51)
[2017-08-05] MEDS: LISINOPRIL 10 MG TABLET PO SCH (09:51)
[2017-08-05] MEDS: ASPIRIN 81 MG EC TAB PO SCH (09:51)
[2017-08-05] MEDS: INSULIN GLARGINE 100 UNITS/ML 10 ML VIAL SQ SCH (09:59)
[2017-08-05] MEDS ORDERED: ONDANSETRON HCL 4 MG/2 ML VIAL ONE (10:00)
[2017-08-05] MEDS ORDERED: MAGNESIUM 2GM PREMIX 50ML 50 ML IV SCH (11:00)
[2017-08-05] MEDS ORDERED: MAGNESIUM SULFATE 2 GM in SODIUM CHLORIDE 0.9% 50 ML IV SCH (11:00)
[2017-08-05 11:55] VITALS: BP 134/84
[2017-08-05] MEDS: METFORMIN HCL 500 MG TABLET PO SCH (12:09)
[2017-09-11] MEDS ORDERED: LISI40TA4 PO (22:36)
[2017-09-13] MEDS ORDERED: SPIR25TA PO (17:22)
[2017-09-13] MEDS ORDERED: FURO-151 PO (17:22)
== END 2017-08-05 18:40 | disposition home or self-care (01) | DRG 291 ==
LOC: EDH 12:26 → EDHIP 12:27 → 3AH 17:52
PROVIDERS: ADMIT Internal Medicine Nephrology; ATTEND Internal Medicine Nephrology
DX: I11.0 Hypertensive heart disease with heart failure (principal); J18.9 Pneumonia, unspecified organism; K31.84 Gastroparesis; E11.43 Type 2 diabetes mellitus with diabetic autonomic (poly)neuropathy; E66.01 Morbid (severe) obesity due to excess calories; Z68.32 Body mass index [BMI] 32.0-32.9, adult; E78.5 Hyperlipidemia, unspecified; G47.33 Obstructive sleep apnea (adult) (pediatric); J45.909 Unspecified asthma, uncomplicated; I50.33 Acute on chronic diastolic (congestive) heart failure; K21.9 Gastro-esophageal reflux disease without esophagitis; Z82.49 Family history of ischemic heart disease and other diseases of the circulatory system; Z83.3 Family history of diabetes mellitus; Z87.01 Personal history of pneumonia (recurrent)
CPT/HCPCS: 36415; 36600; 71045; 71250; 80048; 80053; 82550; 82553; 82803; 82948; 83605; 83735; 83880; 84100; 84443; 84484; 85025; 85027; 85610; 85730; 93005; 94640; 94664; J1644; J1815; J1940; J2405; J3475; P9047

== ENCOUNTER 2017-08-16 20:37 | Inpatient (IN) | payer SELFPAY ==
[~2017-08-16] VITALS: Ht 190.5 cm; Wt 111.8 kg
[~2017-08-16 20:37] MED LIST changes: +LEVO500T89 PO; -METO-408 PO
[2017-08-16 21:07] LABS: BASOPHILS % (AUTO) 0.5 % (0.0-5.0); EOSINOPHILS % (AUTO) 2.4 % (0.0-8.0); HEMATOCRIT 32.9 % (42-54); MEAN CORPUSCULAR HEMOGLOBIN 28.2 pg (27.0-33.0); MEAN CORPUSCULAR HGB CONC 35.1 g/dL (32.0-36.0); MEAN CORPUSCULAR VOLUME 80.2 fL (79-99); MONOCYTES % (AUTO) 9.2 % (3.0-13.0); NEUTROPHILS % (AUTO) 69.9 % (40.0-77.0); PLATELET COUNT (AUTO) 238 K/uL (130-400); RED CELL DISTRIBUTION WIDTH 14.5 % (11.0-15.5); WHITE BLOOD COUNT (AUTO) 6.3 K/uL (4.8-10.8)
[2017-08-16] MEDS ORDERED: ASPIRIN 325 MG TABLET ONE (21:09)
[2017-08-16] MEDS ORDERED: ONDANSETRON HCL 4 MG/2 ML VIAL ONE (21:09)
[2017-08-16] MEDS ORDERED: IPRATROPIUM/ALBUTEROL SULFATE 3 ML SOLUTION IH ONE (21:19)
[2017-08-16 21:25] LABS: POTASSIUM 3.5 mmol/L (3.5-5.1)
[2017-08-16 21:52] LABS: INR 0.95 (0.85-1.15); PARTIAL THROMBOPLASTIN TIME 24.8 SEC (26.3-35.5)
[2017-08-16 22:00] LABS: ALBUMIN 3.1 g/dL (3.5-5.0); BILIRUBIN,TOTAL 0.4 mg/dL (0.2-1.0); TOTAL PROTEIN, SERUM 7.7 g/dL (6.0-8.3)
[2017-08-16] MEDS ORDERED: HYDRALAZINE HCL 20 MG/ML VIAL ONE (22:43)
[2017-08-16] MEDS ORDERED: MORPHINE SULFATE 4 MG/1ML SYG ONE (23:45)
[2017-08-17] MEDS ORDERED: FUROSEMIDE 10 MG/ML 4ML VIAL ONE (01:21)
[2017-08-17] MEDS ORDERED: DEXTROSE 50%-WATER 50 ML DISP.SYRIN IV PRN (05:30)
[2017-08-17] MEDS ORDERED: GLUCAGON 1MG KIT 1 MG ML IM PRN (05:30)
[2017-08-17] MEDS ORDERED: GUAIFENESIN SUGAR-FREE 100 MG/5 ML UDCUP PO PRN (05:30)
[2017-08-17] MEDS ORDERED: ONDANSETRON HCL MDV 20ML 2 MG/ML VIAL IVP PRN (05:30)
[2017-08-17] MEDS: IPRATROPIUM/ALBUTEROL SULFATE 3 ML SOLUTION IH PRN (05:55)
[2017-08-17 06:12] LABS: BASOPHILS % (AUTO) 0.7 % (0.0-5.0); EOSINOPHILS % (AUTO) 2.3 % (0.0-8.0); HEMATOCRIT 28.9 % (42-54); LYMPHOCYTES % (AUTO) 24.6 % (21.0-51.0); MEAN CORPUSCULAR HEMOGLOBIN 27.9 pg (27.0-33.0); MEAN CORPUSCULAR HGB CONC 34.9 g/dL (32.0-36.0); MEAN CORPUSCULAR VOLUME 80.2 fL (79-99); MONOCYTES % (AUTO) 10.3 % (3.0-13.0); NEUTROPHILS % (AUTO) 62.1 % (40.0-77.0); PLATELET COUNT (AUTO) 222 K/uL (130-400); RED BLOOD CELL COUNT(AUTO) 3.61 MIL/uL (4.50-6.20); RED CELL DISTRIBUTION WIDTH 14.5 % (11.0-15.5); WHITE BLOOD COUNT (AUTO) 5.4 K/uL (4.8-10.8)
[2017-08-17 06:19] LABS: CREATININE 1.2 mg/dL (0.5-1.5); POTASSIUM 3.5 mmol/L (3.5-5.1)
[2017-08-17 06:50] LABS: B-TYPE NATRIURETIC PEPTIDE 898 pg/mL (0-100)
[2017-08-17] MEDS: INSULIN R PO SS1 SQ SCH ×4 (07:30→20:58)
[2017-08-17 08:02] VITALS: BP 158/76
[2017-08-17 08:33] LABS: HEMATOCRIT 29.5 % (42-54); MEAN CORPUSCULAR HEMOGLOBIN 27.5 pg (27.0-33.0); MEAN CORPUSCULAR HGB CONC 34.4 g/dL (32.0-36.0); MEAN CORPUSCULAR VOLUME 80.1 fL (79-99); PLATELET COUNT (AUTO) 210 K/uL (130-400); RED BLOOD CELL COUNT(AUTO) 3.69 MIL/uL (4.50-6.20); RED CELL DISTRIBUTION WIDTH 14.4 % (11.0-15.5); WHITE BLOOD COUNT (AUTO) 5.8 K/uL (4.8-10.8)
[2017-08-17 08:50] LABS: CREATININE 1.2 mg/dL (0.5-1.5); POTASSIUM 3.5 mmol/L (3.5-5.1)
[2017-08-17] MEDS: FAMOTIDINE 20MG TAB 20 MG TAB PO SCH ×2 (08:53→20:18)
[2017-08-17] MEDS: ENOXAPARIN SODIUM 40 MG/0.4 ML SYRINGE SQ SCH (08:53)
[2017-08-17 08:56] LABS: LYMPHOCYTES % (MANUAL) 16 % (22-44); MAN.DIFF COMMENT-IMPRESSION MANUAL DIFFERENTIAL; MONOCYTES % (MANUAL) 15 % (2-9); PLATELET MORPHOLOGY COMMENT ADEQUATE; SEGMENTED NEUTROPHILS % 69 % (40-70)
[2017-08-17 08:59] LABS: B-TYPE NATRIURETIC PEPTIDE 946 pg/mL (0-100)
[2017-08-17] MEDS ORDERED: FUROSEMIDE 10 MG/ML 4ML VIAL IVP SCH (09:00)
[2017-08-17] MEDS ORDERED: FURO80TA3 PO (10:59)
[2017-08-17] MEDS ORDERED: ONDA8TAB11 PO (10:59)
[2017-08-17] MEDS ORDERED: HYDR-3420 PO (10:59)
[2017-08-17] MEDS ORDERED: GABA-318 PO (10:59)
[2017-08-17] MEDS ORDERED: INSU100V12 SQ ×2 (10:59)
[2017-08-17] MEDS ORDERED: INSU100C6 SQ (10:59)
[2017-08-17] MEDS ORDERED: ISOS20TA7 PO (10:59)
[2017-08-17] MEDS ORDERED: METO10TA3 PO (10:59)
[2017-08-17] MEDS ORDERED: LISI10TA7 PO (10:59)
[2017-08-17] MEDS ORDERED: METF10004 PO (10:59)
[2017-08-17] MEDS ORDERED: ATOR40TA69 PO (10:59)
[2017-08-17] MEDS ORDERED: SPIR25TA PO (10:59)
[2017-08-17] MEDS ORDERED: ASPI-555 PO (10:59)
[2017-08-17 11:21] VITALS: BP 168/100
[2017-08-17] MEDS: HYDRALAZINE HCL 20 MG/ML VIAL IV PRN (12:10)
[2017-08-17] MEDS ORDERED: ONDANSETRON HCL 4 MG/2 ML VIAL ONE (14:46)
[2017-08-17] MEDS ORDERED: TRAMADOL HCL 50 MG TABLET PO PRN (16:00)
[2017-08-17] MEDS ORDERED: ONDANSETRON 4 MG TABLET PO PRN (16:15)
[2017-08-17 16:26] VITALS: BP 195/106
[2017-08-17] MEDS: ISOSORBIDE MONONITRATE 20 MG TABLET PO SCH (16:47)
[2017-08-17] MEDS: LISINOPRIL 10 MG TABLET PO SCH (16:47)
[2017-08-17] MEDS ORDERED: HYDRALAZINE HCL 10 MG TABLET PO SCH (17:00)
[2017-08-17] MEDS: HYDRALAZINE HCL 25 MG TABLET PO SCH ×2 (17:47→20:18)
[2017-08-17 20:00] VITALS: BP 172/96
[2017-08-17] MEDS: FUROSEMIDE 10 MG/ML 4ML VIAL IVP SCH (20:17)
[2017-08-17] MEDS: GABAPENTIN 300 MG CAPSULE PO SCH (20:18)
[2017-08-17] MEDS: METFORMIN HCL 500 MG TABLET PO SCH (20:18)
[2017-08-17] MEDS: ATORVASTATIN CALCIUM 40 MG TABLET PO SCH (20:18)
[2017-08-17] MEDS: METOCLOPRAMIDE 10 MG TABLET PO SCH (20:19)
[2017-08-17] MEDS: ONDANSETRON HCL 4 MG/2 ML VIAL IVP PRN (20:56)
[2017-08-17] MEDS: ACETAMINOPHEN 325 MG TAB PO PRN (20:57)
[2017-08-17] MEDS: INSULIN GLARGINE 100 UNITS/ML 10 ML VIAL SQ SCH (20:58)
[2017-08-17 21:03] VITALS: BP 163/73
[2017-08-17] MEDS ORDERED: POTASSIUM CHLORIDE 20 MEQ ERTAB PO ONE (23:12)
[2017-08-17] MEDS ORDERED: POTASSIUM CHLORIDE 20MEQ/100ML 100 ML IV PRN (23:15)
[2017-08-17] MEDS ORDERED: LIDOCAINE HCL-MPF 1% 2ML VIAL IVP PRN (23:15)
[2017-08-17] MEDS ORDERED: POTASSIUM CHLORIDE 10% ELIXIR 20 MEQ/15 ML UDCUP PO PRN (23:15)
[2017-08-18] VITALS (7 sets, daily range): BP systolic 111–175; BP diastolic 48–102
[2017-08-18 04:22] LABS: HEMATOCRIT 27.7 % (42-54); MEAN CORPUSCULAR HEMOGLOBIN 28.7 pg (27.0-33.0); MEAN CORPUSCULAR HGB CONC 35.6 g/dL (32.0-36.0); MEAN CORPUSCULAR VOLUME 80.5 fL (79-99); PLATELET COUNT (AUTO) 217 K/uL (130-400); RED BLOOD CELL COUNT(AUTO) 3.44 MIL/uL (4.50-6.20); RED CELL DISTRIBUTION WIDTH 14.3 % (11.0-15.5); WHITE BLOOD COUNT (AUTO) 5.9 K/uL (4.8-10.8)
[2017-08-18 04:29] LABS: CREATININE 1.5 mg/dL (0.5-1.5); MAGNESIUM 1.7 mg/dL (1.80-2.40); POTASSIUM 3.5 mmol/L (3.5-5.1)
[2017-08-18] MEDS: POTASSIUM CHLORIDE 20 MEQ ERTAB PO PRN ×2 (05:41→09:57)
[2017-08-18] MEDS: INSULIN R PO SS1 SQ SCH ×3 (05:59→20:58)
[2017-08-18] MEDS: GABAPENTIN 300 MG CAPSULE PO SCH ×3 (09:53→20:56)
[2017-08-18] MEDS: FUROSEMIDE 10 MG/ML 4ML VIAL IVP SCH ×2 (09:54→20:58)
[2017-08-18] MEDS: ISOSORBIDE MONONITRATE 20 MG TABLET PO SCH (09:54)
[2017-08-18] MEDS: SPIRONOLACTONE 25 MG TAB PO SCH (09:55)
[2017-08-18] MEDS: METFORMIN HCL 500 MG TABLET PO SCH ×2 (09:55→20:56)
[2017-08-18] MEDS: METOCLOPRAMIDE 10 MG TABLET PO SCH ×3 (09:55→20:57)
[2017-08-18] MEDS: ASPIRIN 81 MG EC TAB PO SCH (09:55)
[2017-08-18] MEDS: HYDRALAZINE HCL 25 MG TABLET PO SCH ×3 (09:55→20:57)
[2017-08-18] MEDS: FAMOTIDINE 20MG TAB 20 MG TAB PO SCH ×2 (09:56→20:56)
[2017-08-18] MEDS: LISINOPRIL 10 MG TABLET PO SCH (09:56)
[2017-08-18] MEDS: ENOXAPARIN SODIUM 40 MG/0.4 ML SYRINGE SQ SCH (09:58)
[2017-08-18] MEDS: INSULIN GLARGINE 100 UNITS/ML 10 ML VIAL SQ SCH ×2 (10:04→20:58)
[2017-08-18] MEDS: ONDANSETRON HCL 4 MG/2 ML VIAL IVP PRN (10:07)
[2017-08-18] MEDS ORDERED: MAGNESIUM 2GM PREMIX 50ML 50 ML IV SCH (10:15)
[2017-08-18] MEDS: ACETAMINOPHEN 325 MG TAB PO PRN ×2 (15:26→21:06)
[2017-08-18] MEDS: IPRATROPIUM/ALBUTEROL SULFATE 3 ML SOLUTION IH PRN (19:11)
[2017-08-18] MEDS: ATORVASTATIN CALCIUM 40 MG TABLET PO SCH (20:57)
[2017-08-19] MEDS: IPRATROPIUM/ALBUTEROL SULFATE 3 ML SOLUTION IH PRN (00:03)
[2017-08-19 04:00] VITALS: BP 178/95
[2017-08-19] MEDS: HYDRALAZINE HCL 20 MG/ML VIAL IV PRN (04:31)
[2017-08-19 04:54] VITALS: BP 130/60
[2017-08-19 05:31] LABS: CREATININE 1.5 mg/dL (0.5-1.5); MAGNESIUM 1.9 mg/dL (1.80-2.40); POTASSIUM 3.2 mmol/L (3.5-5.1)
[2017-08-19] MEDS: INSULIN R PO SS1 SQ SCH ×3 (06:08→16:30)
[2017-08-19] MEDS: POTASSIUM CHLORIDE 20 MEQ ERTAB PO PRN ×3 (06:19→17:37)
[2017-08-19 07:00] VITALS: BP 155/83
[2017-08-19] MEDS: ENOXAPARIN SODIUM 40 MG/0.4 ML SYRINGE SQ SCH (09:36)
[2017-08-19] MEDS: GABAPENTIN 300 MG CAPSULE PO SCH ×2 (09:37→13:07)
[2017-08-19] MEDS: HYDRALAZINE HCL 25 MG TABLET PO SCH ×3 (09:37→17:37)
[2017-08-19] MEDS: METFORMIN HCL 500 MG TABLET PO SCH (09:37)
[2017-08-19] MEDS: SPIRONOLACTONE 25 MG TAB PO SCH (09:38)
[2017-08-19] MEDS: FAMOTIDINE 20MG TAB 20 MG TAB PO SCH (09:38)
[2017-08-19] MEDS: METOCLOPRAMIDE 10 MG TABLET PO SCH ×2 (09:38→13:06)
[2017-08-19] MEDS: ISOSORBIDE MONONITRATE 20 MG TABLET PO SCH (09:38)
[2017-08-19] MEDS: LISINOPRIL 10 MG TABLET PO SCH (09:38)
[2017-08-19] MEDS: ASPIRIN 81 MG EC TAB PO SCH (09:38)
[2017-08-19] MEDS: FUROSEMIDE 10 MG/ML 4ML VIAL IVP SCH (09:39)
[2017-08-19] MEDS: INSULIN GLARGINE 100 UNITS/ML 10 ML VIAL SQ SCH (09:47)
[2017-08-19 11:00] VITALS: BP 166/92
[2017-08-19 15:00] VITALS: BP 172/99
[2017-08-19 18:22] VITALS: BP 166/90
[2017-09-11] MEDS ORDERED: LISI40TA4 PO (22:36)
[2017-09-13] MEDS ORDERED: FURO-151 PO (17:22)
[2017-09-13] MEDS ORDERED: SPIR25TA PO (17:22)
== END 2017-08-19 18:30 | disposition home or self-care (01) | DRG 293 ==
LOC: EDH 20:37 → OBSVTOIN 20:38 → EDHIP 20:38 → UNDOADMOB 08-17 01:09 → EDHIP 08-17 01:09 → 4AH 08-17 07:33 → 4CH 08-17 19:19
PROVIDERS: ADMIT Internal Medicine Nephrology; ATTEND Internal Medicine Nephrology
DX: I11.0 Hypertensive heart disease with heart failure (principal); I50.9 Heart failure, unspecified; E66.01 Morbid (severe) obesity due to excess calories; E11.43 Type 2 diabetes mellitus with diabetic autonomic (poly)neuropathy; E78.5 Hyperlipidemia, unspecified; E83.42 Hypomagnesemia; G47.33 Obstructive sleep apnea (adult) (pediatric); K21.9 Gastro-esophageal reflux disease without esophagitis; K31.84 Gastroparesis; Z68.30 Body mass index [BMI] 30.0-30.9, adult; Z79.82 Long term (current) use of aspirin; Z91.19 Patient's noncompliance with other medical treatment and regimen; Z83.3 Family history of diabetes mellitus; Z82.49 Family history of ischemic heart disease and other diseases of the circulatory system
CPT/HCPCS: 36415; 71045; 71250; 80048; 80053; 82550; 82553; 82948; 83735; 83874; 83880; 84484; 85025; 85027; 85610; 85730; 93005; 93306; 94640; 94664; 99291; J0360; J1650; J1815; J1940; J2270; J2405; J3475

== ENCOUNTER 2017-11-08 13:11 | Observation (INO) | payer OTHER ==
[~2017-11-08] VITALS: Ht 188 cm; Wt 119.2 kg
[~2017-11-08 13:11] MED LIST changes: +ASPI-555 PO; -ASPI81TA40 PO; +ATOR40TA69 PO; -ATOR40TA71 PO; +DILT240C3 PO; -FURO40TA5 PO; +FURO40TA7 PO; +GABA-318 PO; -GABA-531 PO; -HYDR-4060 PO; -IBUP-2077 PO; +INSU100C6 SQ; -INSU100I21 SQ; +INSU100V12 SQ; +ISOS30TA6 PO; -ISOS60TA4 PO; -LEVO500T89 PO; +LISI-613 PO; -LISI10TA7 PO; +METF-446 PO; -METF10004 PO; -ONDA4TAB10 PO; +ONDA8TAB11 PO; +SPIR25TA PO; -SPIR25TA6 PO
[2017-11-08 13:40] LABS: BASOPHILS % (AUTO) 0.7 % (0.0-5.0); EOSINOPHILS % (AUTO) 1.9 % (0.0-8.0); HEMATOCRIT 30.5 % (42-54); LYMPHOCYTES % (AUTO) 16.1 % (21.0-51.0); MEAN CORPUSCULAR HEMOGLOBIN 28.7 pg (27.0-33.0); MEAN CORPUSCULAR HGB CONC 35.9 g/dL (32.0-36.0); MEAN CORPUSCULAR VOLUME 79.9 fL (79-99); MONOCYTES % (AUTO) 8.7 % (3.0-13.0); NEUTROPHILS % (AUTO) 72.6 % (40.0-77.0); PLATELET COUNT (AUTO) 165 K/uL (130-400); RED BLOOD CELL COUNT(AUTO) 3.81 MIL/uL (4.50-6.20); RED CELL DISTRIBUTION WIDTH 14.4 % (11.0-15.5); WHITE BLOOD COUNT (AUTO) 6.4 K/uL (4.8-10.8)
[2017-11-08 13:46] LABS: CREATININE 1.5 mg/dL (0.5-1.5); POTASSIUM 3.6 mmol/L (3.5-5.1)
[2017-11-08 13:57] LABS: ALBUMIN 2.9 g/dL (3.5-5.0); BILIRUBIN,TOTAL 0.5 mg/dL (0.2-1.0); CREATINE KINASE MB 3.8 ng/mL (0.5-3.6); TOTAL PROTEIN, SERUM 7.1 g/dL (6.0-8.3)
[2017-11-08 14:32] LABS: INR 0.98 (0.85-1.15); PROTHROMBIN TIME 10.3 SEC (9.6-11.6)
[2017-11-08] MEDS ORDERED: FUROSEMIDE 10 MG/ML 4ML VIAL ONE ×2 (15:02→21:40)
[2017-11-08] MEDS ORDERED: FUROSEMIDE 10 MG/ML 2ML VIAL ONE ×2 (15:02→15:03)
[2017-11-08] MEDS ORDERED: TETANUS/DIPHTHERIA TOXOID [ADULT] 0.5 ML VIAL IM ONE (15:38)
[2017-11-08] MEDS ORDERED: LISINOPRIL 5 MG TABLET ONE ×2 (17:26→18:26)
[2017-11-08] MEDS ORDERED: LISINOPRIL 10 MG TABLET PO SCH (18:00)
[2017-11-08] MEDS ORDERED: CARVEDILOL 12.5 MG TABLET PO ONE (18:27)
[2017-11-08] MEDS ORDERED: LABETALOL HCL 5 MG/ML 20ML VIAL IV ONE (18:27)
[2017-11-08 20:44] VITALS: BP 204/104
[2017-11-08] MEDS ORDERED: HYDRALAZINE HCL 25 MG TABLET PO STA (21:25)
[2017-11-08] MEDS ORDERED: FUROSEMIDE 10 MG/ML 4ML VIAL IV STA (21:27)
[2017-11-08] MEDS ORDERED: LABETALOL 20 MG/4 ML DISP.SYRIN IV SCH (21:30)
[2017-11-08] MEDS ORDERED: HYDRALAZINE HCL 25 MG TABLET ONE (21:39)
[2017-11-08 21:49] VITALS: BP 201/109
[2017-11-08 23:47] VITALS: BP 142/67
[2017-11-09 03:52] VITALS: BP 154/58
[2017-11-09] MEDS: HYDRALAZINE HCL 25 MG TABLET PO SCH ×2 (03:54→06:00)
[2017-11-09 04:16] LABS: CREATININE 1.7 mg/dL (0.5-1.5); MAGNESIUM 1.7 mg/dL (1.80-2.40); POTASSIUM 3.2 mmol/L (3.5-5.1)
[2017-11-09] MEDS ORDERED: LISINOPRIL 10 MG TABLET PO SCH (06:25)
[2017-11-09] MEDS ORDERED: HYDRALAZINE HCL 20 MG/ML VIAL IV PRN (06:30)
[2017-11-09] MEDS ORDERED: ZOLPIDEM TARTRATE 5 MG TAB PO PRN (06:30)
[2017-11-09] MEDS ORDERED: LABETALOL 20 MG/4 ML DISP.SYRIN IV PRN (06:30)
[2017-11-09] MEDS ORDERED: POTASSIUM CHLORIDE 20MEQ/100ML 100 ML IV PRN (06:30)
[2017-11-09] MEDS ORDERED: POTASSIUM CHLORIDE 10% ELIXIR 20 MEQ/15 ML UDCUP PO PRN (06:30)
[2017-11-09] MEDS ORDERED: BENZONATATE 100 MG CAPSULE PO PRN (06:30)
[2017-11-09] MEDS ORDERED: LIDOCAINE HCL-MPF 1% 2ML VIAL IJ PRN (06:30)
[2017-11-09] MEDS ORDERED: ACETAMINOPHEN 325 MG TAB PO PRN (06:30)
[2017-11-09] MEDS: FUROSEMIDE 10 MG/ML 4ML VIAL IVP SCH ×3 (06:45→14:45)
[2017-11-09 07:26] VITALS: BP 166/84
[2017-11-09] MEDS: POTASSIUM CHLORIDE 20 MEQ ERTAB PO PRN ×2 (08:39→16:46)
[2017-11-09] MEDS ORDERED: CARVEDILOL 6.25 MG TABLET PO SCH (09:00)
[2017-11-09] MEDS ORDERED: HEPARIN SODIUM 5000UNIT/ML 1ML VIAL SQ SCH (09:00)
[2017-11-09 11:22] VITALS: BP 133/53
[2017-11-09] MEDS ORDERED: ONDANSETRON HCL MDV 20ML 2 MG/ML VIAL IVP PRN (11:45)
[2017-11-09] MEDS ORDERED: HYDRALAZINE HCL 25 MG TABLET PO SCH (12:00)
[2017-11-09] MEDS: INSULIN HUMULIN R 100 UNIT/ML 3ML SQ SCH ×2 (13:48→16:30)
[2017-11-09 16:34] VITALS: BP 184/75
== END 2017-11-09 17:00 | disposition home or self-care (01) ==
LOC: EDH 13:11 → UNDOADMIN 16:21 → EDHIP 16:21 → 2AH 20:20
PROVIDERS: ADMIT Internal Medicine Pulmonary Disease; ATTEND Internal Medicine Pulmonary Disease
DX: I11.0 Hypertensive heart disease with heart failure (principal); I50.21 Acute systolic (congestive) heart failure; E11.9 Type 2 diabetes mellitus without complications; E78.5 Hyperlipidemia, unspecified; N17.9 Acute kidney failure, unspecified; Z82.49 Family history of ischemic heart disease and other diseases of the circulatory system
CPT/HCPCS: 36415 ×2; 71045; 80048; 80053; 82550; 82553; 82948 ×3; 83735; 83880; 84484; 85025; 85610; 85730; 93005; 93970; 96372; 96374; 96375; 99291; G0378 ×23; J1644; J1940 ×5; J3490; 90714

== ENCOUNTER 2018-02-18 07:52 | Inpatient (IN) | payer OTHER ==
[~2018-02-18 07:52] MED LIST changes: -DILT240C3 PO; -FURO40TA7 PO
[2018-02-18 08:06] LABS: BASOPHILS % (AUTO) 0.5 % (0.0-5.0); EOSINOPHILS % (AUTO) 2.2 % (0.0-8.0); HEMATOCRIT 30.7 % (42-54); LYMPHOCYTES % (AUTO) 14.6 % (21.0-51.0); MEAN CORPUSCULAR HEMOGLOBIN 27.7 pg (27.0-33.0); MEAN CORPUSCULAR HGB CONC 34.2 g/dL (32.0-36.0); MONOCYTES % (AUTO) 7.1 % (3.0-13.0); NEUTROPHILS % (AUTO) 75.6 % (40.0-77.0); NUCLEATED RED BLOOD CELLS 0.1 % (0.0-0.19); PLATELET COUNT (AUTO) 282 K/uL (130-400); RED CELL DISTRIBUTION WIDTH 13.6 % (11.0-15.5); WHITE BLOOD COUNT (AUTO) 7.2 K/uL (4.8-10.8)
[2018-02-18 08:16] LABS: CREATININE 1.6 mg/dL (0.5-1.5); POTASSIUM 4.1 mmol/L (3.5-5.1)
[2018-02-18 08:19] LABS: INR 0.95 (0.85-1.15)
[2018-02-18 08:21] LABS: ALBUMIN 2.8 g/dL (3.5-5.0); BILIRUBIN,TOTAL 0.5 mg/dL (0.2-1.0); TOTAL PROTEIN, SERUM 7.7 g/dL (6.0-8.3)
[2018-02-18] MEDS ORDERED: ASPIRIN 325 MG TABLET ONE (08:25)
[2018-02-18] MEDS ORDERED: METOCLOPRAMIDE 10 MG/2 ML VIAL ONE (08:25)
[2018-02-18] MEDS ORDERED: FUROSEMIDE 10 MG/ML 2ML VIAL ONE (08:25)
[2018-02-18] MEDS ORDERED: FAMOTIDINE/PF 20 MG/2 ML VIAL IV ONE (08:26)
[2018-02-18] MEDS ORDERED: NITROGLYCERIN 0.4 MG SL TAB SL ONE (08:26)
[2018-02-18] MEDS ORDERED: ONDANSETRON HCL 4 MG/2 ML VIAL ONE ×2 (10:18→23:35)
[2018-02-18] MEDS ORDERED: LABETALOL 20 MG/4 ML DISP.SYRIN IV ONE ×3 (10:19→12:10)
[2018-02-18] MEDS ORDERED: NITROGLYCERIN 50 MG/D5% WATER 1 BOT ONE (14:26)
[2018-02-18] MEDS ORDERED: NITROGLYCERIN 50 MG/D5% WATER 1 BOT IV PRN (14:45)
[2018-02-18] MEDS ORDERED: ACETAMINOPHEN EXTRA STRENGTH 500 MG TABLET ONE (16:38)
[2018-02-19] MEDS ORDERED: PHARMACY COMMUNICATION MISC SCH (00:30)
[2018-02-19] MEDS ORDERED: ONDANSETRON HCL 4 MG/2 ML VIAL ONE (05:43)
[2018-02-19] MEDS ORDERED: METOCLOPRAMIDE 10 MG/2 ML VIAL ONE (05:55)
[2018-02-19 06:04] LABS: BASOPHILS % (AUTO) 0.7 % (0.0-5.0); EOSINOPHILS % (AUTO) 2.7 % (0.0-8.0); HEMATOCRIT 26.7 % (42-54); LYMPHOCYTES % (AUTO) 26.3 % (21.0-51.0); MEAN CORPUSCULAR HEMOGLOBIN 27.7 pg (27.0-33.0); MEAN CORPUSCULAR HGB CONC 34.1 g/dL (32.0-36.0); MEAN CORPUSCULAR VOLUME 81.1 fL (79-99); MONOCYTES % (AUTO) 8.4 % (3.0-13.0); NEUTROPHILS % (AUTO) 61.9 % (40.0-77.0); PLATELET COUNT (AUTO) 258 K/uL (130-400); RED BLOOD CELL COUNT(AUTO) 3.29 MIL/uL (4.50-6.20); RED CELL DISTRIBUTION WIDTH 14.1 % (11.0-15.5); WHITE BLOOD COUNT (AUTO) 6.7 K/uL (4.8-10.8)
[2018-02-19 06:19] LABS: B-TYPE NATRIURETIC PEPTIDE 653 pg/mL (0-100)
[2018-02-19 06:21] LABS: CREATININE 1.8 mg/dL (0.5-1.5); POTASSIUM 4.2 mmol/L (3.5-5.1)
[2018-02-19 06:24] LABS: ALBUMIN 2.5 g/dL (3.5-5.0); BILIRUBIN,TOTAL 0.4 mg/dL (0.2-1.0); MAGNESIUM 1.8 mg/dL (1.80-2.40); PHOSPHORUS 5.2 mg/dL (2.5-4.9); TOTAL PROTEIN, SERUM 6.2 g/dL (6.0-8.3)
[2018-02-19 08:45] VITALS: BP 161/95
[2018-02-19] MEDS ORDERED: AMLODIPINE BESYLATE 5 MG TAB PO SCH ×2 (09:00→21:00)
[2018-02-19] MEDS ORDERED: FUROSEMIDE 20 MG TABLET PO SCH (09:00)
[2018-02-19] MEDS ORDERED: LABETALOL HCL 100 MG TABLET PO SCH ×2 (09:00→21:00)
[2018-02-19] MEDS: PHENAZOPYRIDINE HCL 200 MG TABLET PO SCH ×2 (10:12→15:15)
[2018-02-19 11:00] VITALS: BP 178/94
[2018-02-19] MEDS: INSULIN HUMULIN R 100 UNIT/ML 3ML SQ SCH ×2 (12:00→16:59)
[2018-02-19] MEDS ORDERED: HYDRALAZINE HCL 20 MG/ML VIAL IV PRN (12:45)
[2018-02-19] MEDS ORDERED: GABAPENTIN 300 MG CAPSULE PO SCH (14:00)
[2018-02-19] MEDS ORDERED: FURO20TA6 PO (15:14)
[2018-02-19] MEDS ORDERED: TORS100T16 PO (15:14)
[2018-02-19] MEDS ORDERED: AMLO5TAB4 PO (15:14)
[2018-02-19] MEDS ORDERED: LABE100T5 PO (15:14)
[2018-02-19 16:00] VITALS: BP 145/78
[2018-02-19] MEDS ORDERED: LABETALOL HCL 200 MG TABLET PO SCH (21:00)
[2018-02-19] MEDS ORDERED: ATORVASTATIN CALCIUM 40 MG TABLET PO SCH (21:00)
[2018-02-20] MEDS ORDERED: FUROSEMIDE 20 MG TABLET PO SCH (09:00)
[2018-02-20] MEDS ORDERED: ISOSORBIDE MONO 60 MG TAB.SR PO SCH (09:00)
[2018-02-20] MEDS ORDERED: ASPIRIN 81MG TAB.CHEW PO SCH (09:00)
== END 2018-02-19 17:51 | disposition home or self-care (01) | DRG 291 ==
LOC: EDH 07:52 → EDHIP 14:20 → 4BH 02-19 08:52
PROVIDERS: ADMIT Internal Medicine; ATTEND Internal Medicine
DX: I13.0 Hypertensive heart and chronic kidney disease with heart failure and stage 1 through stage 4 chronic kidney disease, or unspecified chronic kidney disease (principal); I50.31 Acute diastolic (congestive) heart failure; E11.22 Type 2 diabetes mellitus with diabetic chronic kidney disease; E78.5 Hyperlipidemia, unspecified; I25.5 Ischemic cardiomyopathy; N18.9 Chronic kidney disease, unspecified
CPT/HCPCS: 36415; 71045; 80053; 82550; 82948; 83735; 83880; 84100; 84484; 85025; 85610; 85730; 93005; G0378; J0360; J1815; J1940; J2405; J2765; J3490

== ENCOUNTER 2019-04-23 18:36 | Observation (INO) | payer OTHER ==
[~2019-04-23] VITALS: Ht 188 cm; Wt 125.2 kg
[~2019-04-23 18:36] MED LIST changes: +AMLO5TAB4 PO; +ASPI-1181 PO; -ASPI-555 PO; -GABA-318 PO; +GABA600T10 PO; +HYDR-4453 PO; -HYDR100T27 PO; -INSU100C6 SQ; -INSU100V12 SQ; +INSU3INS9 SQ; -ISOS30TA6 PO; +LABE100T5 PO; -LISI-613 PO; -ONDA8TAB11 PO; +ONDA8TAB65 PO; +TORS100T16 PO
[2019-04-23] MEDS ORDERED: IPRATROPIUM/ALBUTEROL SULFATE 3 ML SOLUTION IH ONE ×2 (19:18→23:20)
[2019-04-23 19:20] LABS: BASOPHILS % (AUTO) 0.2 % (0.0-5.0); EOSINOPHILS % (AUTO) 0.8 % (0.0-8.0); HEMATOCRIT 30.8 % (42-54); LYMPHOCYTES % (AUTO) 17.7 % (21.0-51.0); MEAN CORPUSCULAR HEMOGLOBIN 27.3 pg (27.0-33.0); MEAN CORPUSCULAR HGB CONC 31.8 g/dL (32.0-36.0); MEAN CORPUSCULAR VOLUME 85.8 fL (79-99); MONOCYTES % (AUTO) 12.4 % (3.0-13.0); NEUTROPHILS % (AUTO) 68.7 % (40.0-77.0); PLATELET COUNT (AUTO) 171 K/uL (130-400); RED BLOOD CELL COUNT(AUTO) 3.59 MIL/uL (4.50-6.20); RED CELL DISTRIBUTION WIDTH 14.5 % (11.0-15.5)
[2019-04-23 19:37] LABS: RAPID GROUP A STREP NEGATIVE (NEGATIVE)
[2019-04-23 19:45] LABS: CREATININE 3.6 mg/dL (0.5-1.5); POTASSIUM 3.6 mmol/L (3.5-5.1)
[2019-04-23] MEDS ORDERED: GUAIFENESIN SUGAR-FREE 100 MG/5 ML UDCUP ONE (19:48)
[2019-04-23 19:49] LABS: BILIRUBIN,TOTAL 0.6 mg/dL (0.2-1.0); TOTAL PROTEIN, SERUM 8.1 g/dL (6.0-8.3)
[2019-04-23] MEDS ORDERED: BENZONATATE 100 MG CAPSULE PO ONE (19:49)
[2019-04-23 19:54] LABS: INR 1.09 (0.85-1.15); PARTIAL THROMBOPLASTIN TIME 27.4 SEC (26.3-35.5); PROTHROMBIN TIME 11.4 SEC (9.6-11.6)
[2019-04-23 20:15] LABS: B-TYPE NATRIURETIC PEPTIDE 1330 pg/mL (0-100)
[2019-04-23] MEDS ORDERED: AZITHROMYCIN 500MG+NS 250ML 250 ML IV ONE (22:58)
[2019-04-23] MEDS ORDERED: CEFTRIAXONE SODIUM 1 GM ONE (22:58)
[2019-04-23] MEDS ORDERED: METHYLPREDNISOLONE SOD SUCC 40MG/ML 1ML ONE (22:58)
[2019-04-23] MEDS ORDERED: METOCLOPRAMIDE 5 MG TABLET ONE (22:59)
[2019-04-24] VITALS (7 sets, daily range): BP systolic 124–188; BP diastolic 72–93
[2019-04-24] MEDS ORDERED: GUAIFENESIN-DM 200/20 MG 10 ML PO PRN (00:45)
[2019-04-24] MEDS ORDERED: BENZONATATE 100 MG CAPSULE PO PRN (00:45)
[2019-04-24] MEDS ORDERED: GUAIFENESIN SUGAR-FREE 100 MG/5 ML UDCUP ONE (01:02)
--- NOTE | 2019-04-24 01:06 | NUR ---
Received patient from ED at 0015, patient oriented to room, Vital signs taken and recorded. Complains of persistent cough.
--- NOTE | 2019-04-24 01:07 | NUR ---
Ailyn Lozano GENERAL OFFICE WORKER called for Blood pressure medication and cough suppressants for patient.
[2019-04-24] MEDS: HYDRALAZINE HCL 20 MG/ML VIAL IV PRN ×2 (01:53→08:23)
[2019-04-24] MEDS: GUAIFENESIN SUGAR-FREE 100 MG/5 ML UDCUP PO PRN ×2 (01:53→18:39)
[2019-04-24] MEDS ORDERED: ONDANSETRON HCL 4 MG/2 ML VIAL ONE (04:07)
[2019-04-24] MEDS ORDERED: ONDANSETRON HCL 4 MG/2 ML VIAL IVP PRN ×2 (04:30→08:00)
[2019-04-24] MEDS: IPRATROPIUM/ALBUTEROL SULFATE 3 ML SOLUTION IH SCH ×3 (06:23→19:03)
[2019-04-24] MEDS: INSULIN HUMULIN R 100 UNIT/ML 3ML SQ SCH ×4 (06:56→21:00)
[2019-04-24] MEDS ORDERED: SODIUM CHLORIDE 0.9% 10 ML VIAL IVP SCH (08:00)
[2019-04-24] MEDS ORDERED: GLUCAGON 1MG KIT 1 MG ML IM PRN (08:00)
[2019-04-24] MEDS ORDERED: DEXTROSE 50%-WATER 50 ML DISP.SYRIN IV PRN (08:00)
[2019-04-24] MEDS ORDERED: ACETAMINOPHEN 325 MG TAB PO PRN (08:00)
[2019-04-24] MEDS: LABETALOL HCL 100 MG TABLET PO SCH ×2 (08:15→21:10)
[2019-04-24] MEDS ORDERED: COMPOUND PO MISCELLANEOUS 1 EACH MISC MISC PRN (08:15)
[2019-04-24] MEDS: AMLODIPINE BESYLATE 5 MG TAB PO SCH ×2 (08:16→21:10)
[2019-04-24] MEDS: METHYLPREDNISOLONE SOD SUCC 40MG/ML 1ML IVP SCH ×2 (08:19→21:08)
[2019-04-24] MEDS: FAMOTIDINE 20MG TAB 20 MG TAB PO SCH ×2 (08:19→21:09)
[2019-04-24] MEDS: OSELTAMIVIR PHOSPHATE 300 MG, WATER FOR INJECTION,STERILE 10 ML, COMPOUNDING VEHICLE SF... PO SCH ×3 (08:53)
[2019-04-24] MEDS: ONDANSETRON HCL 4 MG/2 ML VIAL IVP PRN ×2 (08:54→09:07)
[2019-04-24] MEDS ORDERED: METOCLOPRAMIDE 5 MG TABLET PO SCH (11:30)
[2019-04-24] MEDS: INSULIN R PO SSI SQ SCH ×3 (11:30→21:00)
[2019-04-24] MEDS ORDERED: ONDANSETRON ODT 4 MG TAB PO PRN (12:30)
[2019-04-24] MEDS ORDERED: SODIUM CHLORIDE 3% FOR INHALATION 4 ML/AMP VIAL.NEB IH ONE ×2 (13:54→23:59)
[2019-04-24] MEDS ORDERED: METOCLOPRAMIDE 10 MG TABLET PO SCH (14:00)
[2019-04-24] MEDS: GABAPENTIN 300 MG CAPSULE PO SCH ×2 (14:09→21:09)
--- NOTE | 2019-04-24 14:43 | NUR ---
D/C PLAN CM spoke to pt regarding d/c planning. Pt lives with daughter. Denies having any home health or provider services. States daughter has been assisting in care as needed. Pt denies any issues with transportation to HD. Pt attends [facility]. Pt is readmission. CM offered short term snf/rehab as possible d/c option. Pt is agreeable to placement if ordered. Plan for now is home vs snf/rehab. CM to f/u. Addendum: 04/24/19 at 1445 by RODERICK HARGROVE CM Amended: Links added.
[2019-04-24] MEDS: SPIRONOLACTONE 25 MG TAB PO SCH (16:52)
[2019-04-24] MEDS: METFORMIN HCL 500 MG TABLET PO SCH (16:52)
[2019-04-24] MEDS: LIRAGLUTIDE SQ SCH (17:00)
[2019-04-24] MEDS: INSULIN DEGLUDEC SQ SCH (17:00)
[2019-04-24] MEDS ORDERED: ASPIRIN 81 MG EC TAB PO SCH (21:00)
[2019-04-24] MEDS ORDERED: ATORVASTATIN CALCIUM 40 MG TABLET PO SCH (21:00)
--- NOTE | 2019-04-24 21:00 | NUR ---
PT ABLE TO TAKE MEDICATIONS DIRECTED. NO DISTRESS NOTED. ROOM AIR. STATES HE IS UNABLE TO AMBULATE. ONLY TRANSFER TO CHAIR WITH ASSIST.
[2019-04-24] MEDS: METOCLOPRAMIDE 10 MG TABLET PO SCH (21:09)
[2019-04-25] MEDS: IPRATROPIUM/ALBUTEROL SULFATE 3 ML SOLUTION IH SCH ×3 (00:01→11:38)
[2019-04-25 00:03] VITALS: BP 152/76
[2019-04-25 04:10] VITALS: BP 145/77
[2019-04-25 04:36] LABS: BASOPHILS % (AUTO) 0.2 % (0.0-5.0); LYMPHOCYTES % (AUTO) 12.7 % (21.0-51.0); MEAN CORPUSCULAR VOLUME 84.3 fL (79-99); MONOCYTES % (AUTO) 5.3 % (3.0-13.0); NEUTROPHILS % (AUTO) 81.3 % (40.0-77.0); PLATELET COUNT (AUTO) 179 K/uL (130-400); RED BLOOD CELL COUNT(AUTO) 3.56 MIL/uL (4.50-6.20); RED CELL DISTRIBUTION WIDTH 14.5 % (11.0-15.5); WHITE BLOOD COUNT (AUTO) 6.6 K/uL (4.8-10.8)
[2019-04-25 04:57] LABS: CREATININE 4.9 mg/dL (0.5-1.5); POTASSIUM 4.2 mmol/L (3.5-5.1)
[2019-04-25] MEDS ORDERED: SODIUM CHLORIDE 3% FOR INHALATION 4 ML/AMP VIAL.NEB IH ONE (06:05)
[2019-04-25] MEDS: INSULIN HUMULIN R 100 UNIT/ML 3ML SQ SCH ×3 (06:50→16:30)
[2019-04-25 08:13] VITALS: BP 142/80
[2019-04-25] MEDS ORDERED: CEFTRIAXONE SODIUM 1 GM IVP SCH (08:15)
[2019-04-25] MEDS: OSELTAMIVIR PHOSPHATE 300 MG, WATER FOR INJECTION,STERILE 10 ML, COMPOUNDING VEHICLE SF... PO SCH ×3 (08:28)
[2019-04-25] MEDS: FAMOTIDINE 20MG TAB 20 MG TAB PO SCH (08:30)
[2019-04-25] MEDS: METFORMIN HCL 500 MG TABLET PO SCH ×2 (08:30→17:52)
[2019-04-25] MEDS: GABAPENTIN 300 MG CAPSULE PO SCH ×2 (08:30→13:47)
[2019-04-25] MEDS: METOCLOPRAMIDE 10 MG TABLET PO SCH ×2 (08:31→13:47)
[2019-04-25] MEDS: LABETALOL HCL 100 MG TABLET PO SCH (08:32)
[2019-04-25] MEDS: AMLODIPINE BESYLATE 5 MG TAB PO SCH (08:32)
[2019-04-25] MEDS: METHYLPREDNISOLONE SOD SUCC 40MG/ML 1ML IVP SCH (08:33)
[2019-04-25] MEDS ORDERED: AZITHROMYCIN 500MG+NS 250ML 250 ML IV SCH (09:00)
[2019-04-25 11:46] VITALS: BP 128/65
[2019-04-25] MEDS ORDERED: LOPERAMIDE 1 MG/7.5 ML UDCUP PO SCH (12:15)
[2019-04-25] MEDS ORDERED: OSEL30CA PO (13:58)
--- NOTE | 2019-04-25 14:00 | NUR ---
HD IN PROGRESS. DENIES ANY C/O AT THIS TIME.
--- NOTE | 2019-04-25 14:34 | NUR ---
DR. Jadyn STEWARD IN ROOM WITH PT. FOR CONSULT. Addendum: 04/25/19 at 1434 by DAIANA CAICEDO RN RN HD IN PROGRESS.
[2019-04-25] MEDS ORDERED: LOSA50TA64 PO (14:47)
[2019-04-25] MEDS: GUAIFENESIN SUGAR-FREE 100 MG/5 ML UDCUP PO PRN (15:36)
[2019-04-25 15:42] VITALS: BP 171/87
[2019-04-25] MEDS ORDERED: HEPARIN SODIUM 5000UNIT/ML 1ML VIAL ONE (15:43)
[2019-04-25] MEDS ORDERED: HEPARIN SODIUM 5000UNIT/ML 1ML VIAL IJ PRN (15:45)
[2019-04-25] MEDS ORDERED: SODIUM CHLORIDE 0.9% 1000ML 1,000 ML IV PRN (15:45)
[2019-04-25] MEDS ORDERED: NITROGLYCERIN 0.4 MG SL TAB SL PRN (15:45)
[2019-04-25] MEDS ORDERED: 0.9% SODIUM CHLORIDE 1000 ML IV BAG IV PRN (15:45)
--- NOTE | 2019-04-25 16:20 | NUR ---
HD COMPLETED. TOLERATED W/O C/O. CALL LIGHT WITHIN REACH.
[2019-04-25] MEDS: INSULIN DEGLUDEC SQ SCH (17:00)
[2019-04-25] MEDS: LIRAGLUTIDE SQ SCH (17:00)
[2019-04-25] MEDS: SPIRONOLACTONE 25 MG TAB PO SCH (17:52)
--- NOTE | 2019-04-25 18:07 | NUR ---
HL REMOVED, CATHETER INTACT. DISCHARGE INSTRUCTIONS GIVEN, VERBALIZED UNDERSTANDING.
--- NOTE | 2019-04-25 18:20 | NUR ---
DISCHARGED HOME VIA W/C WITH BELONGINGS ACCOMPANIED BY PT.'S SON AND TAVON CORONADO.
== END 2019-04-25 18:45 | disposition home or self-care (01) ==
LOC: EDH 18:36 → EDHIP 21:10 → 2AH 04-24 00:17
PROVIDERS: ADMIT Internal Medicine Pulmonary Disease; ATTEND Internal Medicine Pulmonary Disease
DX: I13.2 Hypertensive heart and chronic kidney disease with heart failure and with stage 5 chronic kidney disease, or end stage renal disease (principal); I50.33 Acute on chronic diastolic (congestive) heart failure; E11.22 Type 2 diabetes mellitus with diabetic chronic kidney disease; N18.6 End stage renal disease; E78.5 Hyperlipidemia, unspecified; B34.9 Viral infection, unspecified; E44.0 Moderate protein-calorie malnutrition; K21.9 Gastro-esophageal reflux disease without esophagitis; E66.01 Morbid (severe) obesity due to excess calories; D63.8 Anemia in other chronic diseases classified elsewhere; Z91.19 Patient's noncompliance with other medical treatment and regimen; Z99.2 Dependence on renal dialysis; Z79.4 Long term (current) use of insulin; Z68.35 Body mass index [BMI] 35.0-35.9, adult; Z79.891 Long term (current) use of opiate analgesic; Z79.899 Other long term (current) drug therapy
CPT/HCPCS: 36415 ×2; 71045; 80048; 80053; 82550; 82948 ×7; 83605; 83880 ×2; 84484; 85025 ×2; 85610; 85730; 87804 ×2; 87880; 93005; 94640 ×9; 94664; 94667; 96365; 96372 ×2; 96375 ×2; 96376 ×2; 97039; 97161; 99285; G0378 ×4; G8978; G8979; G8980; G8981; G8982; G8983; J0360 ×2; J0456 ×2; J0696 ×2; J1644; J1815 ×2; J2405 ×2; J2920 ×4; 90935

== ENCOUNTER → 2020-01-12 | Outpatient (CLI) | payer OTHER ==
[~2020-01-12] MED LIST changes: -ASPI-1181 PO; +ASPI-1443 PO; +LOSA50TA64 PO; +OSEL30CA PO; -TORS100T16 PO
== END | disposition home or self-care (01) ==
LOC: RAH 12:44
PROVIDERS: ATTEND Family Medicine
DX: M48.061 Spinal stenosis, lumbar region without neurogenic claudication (principal); M54.9 Dorsalgia, unspecified; M54.5 Low back pain
CPT/HCPCS: 72148

== ENCOUNTER 2020-07-13 08:34 | Emergency (ER) | payer OTHER ==
[~2020-07-13 08:34] MED LIST changes: -AMLO5TAB4 PO; +APIX5TAB PO; -ASPI-1443 PO; -LABE100T5 PO; -LOSA50TA64 PO; +METO50 PO; -SPIR25TA PO
[2020-07-13] MEDS ORDERED: DiphenhydrAMINE HCL 50 MG/ML VIAL ONE (09:06)
[2020-07-13] MEDS ORDERED: PROCHLORPERAZINE EDISYLATE 10 MG/2 ML VIAL ONE (09:07)
[2020-07-13] MEDS ORDERED: KETOROLAC TROMETHAMINE 30MG/ML ONE (09:07)
[2020-07-13 09:10] LABS: BASOPHILS % (AUTO) 0.3 % (0.0-5.0); EOSINOPHILS % (AUTO) 2.5 % (0.0-8.0); HEMATOCRIT 31.9 % (42-54); MEAN CORPUSCULAR HEMOGLOBIN 28.8 pg (27.0-33.0); MEAN CORPUSCULAR VOLUME 90.1 fL (79-99); MONOCYTES % (AUTO) 8.8 % (3.0-13.0); NEUTROPHILS % (AUTO) 82.1 % (40.0-77.0); PLATELET COUNT (AUTO) 219 K/uL (130-400); RED BLOOD CELL COUNT(AUTO) 3.54 MIL/uL (4.50-6.20); RED CELL DISTRIBUTION WIDTH 13.7 % (11.0-15.5)
[2020-07-13 09:47] LABS: CREATININE 6.3 mg/dL (0.5-1.5); POTASSIUM 4.2 mmol/L (3.5-5.1)
[2020-07-13 09:52] LABS: ALBUMIN 3.1 g/dL (3.5-5.0); BILIRUBIN,TOTAL 0.7 mg/dL (0.2-1.0); TOTAL PROTEIN, SERUM 8.2 g/dL (6.0-8.3)
[2020-07-13] MEDS ORDERED: ONDANSETRON HCL 4 MG/2 ML VIAL ONE (10:30)
[2020-07-13] MEDS ORDERED: METOPROLOL TARTRATE 25 MG TAB ONE (11:11)
== END 2020-07-13 11:42 | disposition home or self-care (01) ==
LOC: EDH 08:34
DX: R11.2 Nausea with vomiting, unspecified (principal); G89.29 Other chronic pain; M54.5 Low back pain; I73.9 Peripheral vascular disease, unspecified; I12.0 Hypertensive chronic kidney disease with stage 5 chronic kidney disease or end stage renal disease; E11.22 Type 2 diabetes mellitus with diabetic chronic kidney disease; N18.6 End stage renal disease
CPT/HCPCS: 36415; 80053; 85025; 96374; 96375; 99284; J0780; J1200; J1885; J2405

== ENCOUNTER 2020-11-04 08:47 | Emergency (ER) | payer OTHER ==
[~2020-11-04] VITALS: Ht 190.5 cm; Wt 113.4 kg
[~2020-11-04 08:47] MED LIST changes: +ALPR0.5T8 PO; +DILT180C63 PO; +GABA300S PO; -GABA600T10 PO; +LOSA100T2 PO; -METF-446 PO; -METO10TA3 PO; -OSEL30CA PO
[2020-11-04 08:48] VITALS: BP 185/117
[2020-11-04] MEDS ORDERED: LIDO30CR20 TP (09:36)
[2020-11-04] MEDS ORDERED: TERB30CR8 TP (09:36)
== END 2020-11-04 09:47 | disposition home or self-care (01) ==
LOC: EDH 08:47
DX: B37.42 Candidal balanitis (principal); I13.2 Hypertensive heart and chronic kidney disease with heart failure and with stage 5 chronic kidney disease, or end stage renal disease; I50.9 Heart failure, unspecified; E10.22 Type 1 diabetes mellitus with diabetic chronic kidney disease; N18.6 End stage renal disease; Z79.01 Long term (current) use of anticoagulants; Z79.4 Long term (current) use of insulin; Z79.899 Other long term (current) drug therapy; Z99.2 Dependence on renal dialysis

== ENCOUNTER 2020-11-08 09:55 | Emergency (ER) | payer OTHER ==
[~2020-11-08] VITALS: Ht 190.5 cm; Wt 54.4 kg
[~2020-11-08 09:55] MED LIST changes: +LIDO30CR20 TP; +TERB30CR8 TP
[2020-11-08 10:32] VITALS: BP 142/86
[2020-11-08] MEDS ORDERED: ACETAMINOPHEN 500 MG TABLET PO ONE (11:00)
[2020-11-08 11:15] LABS: BASOPHILS % (AUTO) 0.3 % (0.0-5.0); EOSINOPHILS % (AUTO) 0.7 % (0.0-8.0); HEMATOCRIT 38.8 % (42-54); LYMPHOCYTES % (AUTO) 8.6 % (21.0-51.0); MEAN CORPUSCULAR HEMOGLOBIN 27.9 pg (27.0-33.0); MEAN CORPUSCULAR VOLUME 87.4 fL (79-99); MONOCYTES % (AUTO) 6.4 % (3.0-13.0); NEUTROPHILS % (AUTO) 83.7 % (40.0-77.0); PLATELET COUNT (AUTO) 171 K/uL (130-400); RED BLOOD CELL COUNT(AUTO) 4.44 MIL/uL (4.50-6.20); RED CELL DISTRIBUTION WIDTH 15.3 % (11.0-15.5); WHITE BLOOD COUNT (AUTO) 9.1 K/uL (4.8-10.8)
[2020-11-08 11:25] LABS: CREATININE 6.2 mg/dL (0.5-1.5); POTASSIUM 4.2 mmol/L (3.5-5.1)
[2020-11-08 11:29] LABS: ALBUMIN 2.4 g/dL (3.5-5.0); BILIRUBIN,TOTAL 0.8 mg/dL (0.2-1.0); TOTAL PROTEIN, SERUM 7.6 g/dL (6.0-8.3)
[2020-11-08] MEDS ORDERED: LIDOCAINE HCL 2% VISCOUS 15 ML UDCUP ONE ×2 (12:02→12:29)
[2020-11-08] MEDS ORDERED: FLUC100T8 PO (13:04)
[2020-11-08] MEDS ORDERED: CLOT15CR23 TP (13:04)
[2020-11-08 13:22] LABS: APPEARANCE,URINE Clear (CLEAR); BILIRUBIN,URINE Negative (NEGATIVE); COLOR,URINE Yellow (YELLOW); GLUCOSE, URINE (UA) 250 mg/dL (NEGATIVE); KETONES,URINE Trace mg/dL (NEGATIVE); LEUKOCYTE ESTERASE ,URINE Negative (NEGATIVE); NITRATE,URINE Negative (NEGATIVE); OCCULT BLOOD,URINE Trace (NEGATIVE); PH,URINE 7.5 (5.0-8.0); PROTEIN,URINE >=1000 mg/dL (NEGATIVE)
[2020-11-08 13:39] LABS: BACTERIA,URINE Rare /HPF (None Seen); RBC,URINE 0-1 /HPF (0-1); SQUAMOUS EPITHELIAL CELL,UR Rare /HPF (0-2); WBC,URINE 0-1 /HPF (0-1)
== END 2020-11-08 14:35 | disposition home or self-care (01) ==
LOC: EDH 09:55
DX: R33.9 Retention of urine, unspecified (principal); B37.42 Candidal balanitis; N47.1 Phimosis; I13.2 Hypertensive heart and chronic kidney disease with heart failure and with stage 5 chronic kidney disease, or end stage renal disease; E11.22 Type 2 diabetes mellitus with diabetic chronic kidney disease; I50.9 Heart failure, unspecified; N18.6 End stage renal disease; E78.00 Pure hypercholesterolemia, unspecified; Z79.01 Long term (current) use of anticoagulants; Z79.4 Long term (current) use of insulin; Z79.899 Other long term (current) drug therapy; Z99.2 Dependence on renal dialysis
CPT/HCPCS: 36415; 51702; 80053; 81001; 85025

== ENCOUNTER 2020-11-10 13:17 | Emergency (ER) | payer OTHER ==
[~2020-11-10] VITALS: Ht 190.5 cm; Wt 120.2 kg
[~2020-11-10 13:17] MED LIST changes: +CLOT15CR23 TP; +FLUC100T8 PO
[2020-11-10 13:25] VITALS: BP 167/88
[2020-11-10] MEDS ORDERED: FLUCONAZOLE 100 MG TAB PO ONE (13:30)
[2020-11-10] MEDS ORDERED: HYDROCODONE/ACETAMINOPHEN 10/325 MG TAB PO ONE (13:30)
[2020-11-10 14:00] LABS: APPEARANCE,URINE Clear (CLEAR); BILIRUBIN,URINE Negative (NEGATIVE); COLOR,URINE Yellow (YELLOW); GLUCOSE, URINE (UA) 500 mg/dL (NEGATIVE); KETONES,URINE Negative (NEGATIVE); LEUKOCYTE ESTERASE ,URINE Moderate (NEGATIVE); NITRATE,URINE Negative (NEGATIVE); OCCULT BLOOD,URINE Large (NEGATIVE); PROTEIN,URINE >=1000 mg/dL (NEGATIVE)
[2020-11-10] MEDS ORDERED: MORPHINE 4 MG SYG IV ONE (14:00)
[2020-11-10] MEDS ORDERED: LIDOCAINE HCL 2% JELLY 5 ML ONE (14:03)
[2020-11-10 14:05] LABS: BASOPHILS % (AUTO) 0.2 % (0.0-5.0); EOSINOPHILS % (AUTO) 0.9 % (0.0-8.0); LYMPHOCYTES % (AUTO) 8.1 % (21.0-51.0); MEAN CORPUSCULAR HGB CONC 31.8 g/dL (32.0-36.0); MONOCYTES % (AUTO) 6.4 % (3.0-13.0); NEUTROPHILS % (AUTO) 84.1 % (40.0-77.0); PLATELET COUNT (AUTO) 175 K/uL (130-400); RED BLOOD CELL COUNT(AUTO) 4.43 MIL/uL (4.50-6.20); RED CELL DISTRIBUTION WIDTH 15.4 % (11.0-15.5); WHITE BLOOD COUNT (AUTO) 10.1 K/uL (4.8-10.8)
[2020-11-10 14:16] LABS: CREATININE 6.5 mg/dL (0.5-1.5); POTASSIUM 4.2 mmol/L (3.5-5.1)
[2020-11-10 14:16] LABS: BACTERIA,URINE Few /HPF (None Seen); MUCUS,URINE Moderate LPF (None Seen); RBC,URINE 26-50 /HPF (0-1); SQUAMOUS EPITHELIAL CELL,UR Few /HPF (0-2)
[2020-11-10 14:27] VITALS: BP 160/120
[2020-11-10 15:11] VITALS: BP 153/82
[2020-11-10] MEDS ORDERED: LIDOCAINE 5% TOPICAL PATCH TP ONE (15:22)
[2020-11-10] MEDS ORDERED: LID5O TP (15:34)
== END 2020-11-10 16:40 | disposition home or self-care (01) ==
LOC: EDH 13:17
DX: B37.49 Other urogenital candidiasis (principal); N48.29 Other inflammatory disorders of penis; I13.2 Hypertensive heart and chronic kidney disease with heart failure and with stage 5 chronic kidney disease, or end stage renal disease; E11.22 Type 2 diabetes mellitus with diabetic chronic kidney disease; I50.9 Heart failure, unspecified; N18.6 End stage renal disease; I48.91 Unspecified atrial fibrillation; E78.00 Pure hypercholesterolemia, unspecified; Z79.01 Long term (current) use of anticoagulants; Z79.4 Long term (current) use of insulin; Z79.899 Other long term (current) drug therapy
CPT/HCPCS: 36415; 76870; 80048; 81001; 85025; 87088; 93005; 96374; 99285; J2270

== ENCOUNTER 2020-11-11 12:53 | Inpatient (IN) | payer OTHER ==
[~2020-11-11] VITALS: Ht 190.5 cm; Wt 114.8 kg
[2020-11-11] VITALS (7 sets, daily range): BP systolic 118–182; BP diastolic 56–120
[~2020-11-11 12:53] MED LIST changes: +LID5O TP
[2020-11-11] MEDS ORDERED: MORPHINE 4 MG SYG IM ONE (13:30)
[2020-11-11] MEDS ORDERED: DEXTROSE 50%-WATER 50 ML DISP.SYRIN IV ONE (13:46)
[2020-11-11 13:57] LABS: HEMATOCRIT 41.7 % (42-54); MEAN CORPUSCULAR HGB CONC 31.7 g/dL (32.0-36.0); MEAN CORPUSCULAR VOLUME 88.5 fL (79-99); RED BLOOD CELL COUNT(AUTO) 4.71 MIL/uL (4.50-6.20); RED CELL DISTRIBUTION WIDTH 15.3 % (11.0-15.5); WHITE BLOOD COUNT (AUTO) 8.4 K/uL (4.8-10.8)
[2020-11-11] MEDS ORDERED: ZOSYN 3.375GM+NS 50ML 3.38 GM in 0.9%NACL 50ML 50 ML IV SCH (14:00)
[2020-11-11] MEDS ORDERED: VANCOMYCIN PROTOCOL PER PHARMACY IV SCH (14:00)
[2020-11-11] MEDS ORDERED: RENAL DOSE IV PRN (14:00)
[2020-11-11] MEDS ORDERED: HYDROCODONE/ACETAMINOPHEN 5/325 MG TAB PO PRN (14:00)
[2020-11-11] MEDS ORDERED: HEPARIN 5,000 UNIT VIAL SQ SCH (14:00)
[2020-11-11 14:05] LABS: HEMOGLOBIN A1C 6.2 % (4.0-6.0)
[2020-11-11 14:06] LABS: CREATININE 6.7 mg/dL (0.5-1.5); POTASSIUM 4.3 mmol/L (3.5-5.1)
[2020-11-11] MEDS ORDERED: 0.9%NACL 50ML 50 ML IV ONE (14:19)
[2020-11-11] MEDS ORDERED: GLUCAGON 1MG KIT 1 MG ML IM PRN (14:30)
[2020-11-11] MEDS: FAMOTIDINE 20MG TAB PO SCH (14:30)
[2020-11-11] MEDS: CLOTRIMAZOLE/BETAMETHASONE DIP 45 GM CREAM.GM. TP SCH ×2 (14:30→19:31)
[2020-11-11] MEDS ORDERED: HYDRALAZINE 20MG/ML VIAL IV PRN (14:30)
[2020-11-11] MEDS ORDERED: COMPOUND IV REFRIGERATED 1 EACH IVSOLN MISC PRN (14:30)
[2020-11-11] MEDS: ZOSYN 3.375GM +NS 50ML IV SCH (14:50)
[2020-11-11] MEDS: VANCOMYCIN 1.75GM/250ML NS IV SCH ×2 (15:38)
[2020-11-11] MEDS: ONDANSETRON 4MG INJ IVP PRN ×2 (15:55→22:33)
[2020-11-11] MEDS: HYDROMORPHONE 1 MG INJ IVP PRN ×2 (16:15→22:33)
[2020-11-11] MEDS: INSULIN HUMULIN R 100 UNIT/ML 3ML SQ SCH ×2 (16:30→21:00)
[2020-11-11] MEDS ORDERED: METOPROLOL TARTRATE 25 MG TAB ONE (17:45)
[2020-11-11] MEDS ORDERED: DILTIAZEM 50MG VIAL IV ONE (18:07)
[2020-11-11] MEDS ORDERED: DILTIAZEM 125MG+100 ML NS 125 ML IV SCH (18:30)
[2020-11-11] MEDS ORDERED: DILTIAZEM 25MG INJ IVP SCH ×2 (18:30)
[2020-11-11] MEDS: METOPROLOL TARTRATE 50 MG TAB PO SCH (21:00)
[2020-11-11] MEDS ORDERED: APIXABAN 5 MG TABLET PO SCH (21:00)
[2020-11-11] MEDS: GABAPENTIN 300 MG CAPSULE PO SCH (22:01)
[2020-11-12] VITALS (33 sets, daily range): BP systolic 81–156; BP diastolic 51–93
[2020-11-12] MEDS: ZOSYN 3.375GM +NS 50ML IV SCH ×2 (02:29→14:37)
[2020-11-12] MEDS: DEXTROSE 50%-WATER 50 ML DISP.SYRIN IV PRN ×3 (05:41→20:08)
[2020-11-12] MEDS: INSULIN HUMULIN R 100 UNIT/ML 3ML SQ SCH ×4 (07:30→21:00)
[2020-11-12 08:10] LABS: HEMATOCRIT 42.9 % (42-54); MEAN CORPUSCULAR HEMOGLOBIN 27.5 pg (27.0-33.0); MEAN CORPUSCULAR HGB CONC 30.1 g/dL (32.0-36.0); MEAN CORPUSCULAR VOLUME 91.5 fL (79-99); PLATELET COUNT (AUTO) 176 K/uL (130-400); RED BLOOD CELL COUNT(AUTO) 4.69 MIL/uL (4.50-6.20); RED CELL DISTRIBUTION WIDTH 15.6 % (11.0-15.5)
[2020-11-12] MEDS: HYDROMORPHONE 1 MG INJ IVP PRN (08:11)
[2020-11-12 08:23] LABS: ALBUMIN 2.4 g/dL (3.5-5.0); BILIRUBIN,TOTAL 0.6 mg/dL (0.2-1.0); CREATININE 7.4 mg/dL (0.5-1.5); TOTAL PROTEIN, SERUM 7.9 g/dL (6.0-8.3)
[2020-11-12] MEDS: FAMOTIDINE 20MG TAB PO SCH (08:29)
[2020-11-12] MEDS: FLUCONAZOLE 100 MG TAB PO SCH (08:29)
[2020-11-12] MEDS: DILTIAZEM 180MG SR CAP PO SCH (08:29)
[2020-11-12] MEDS: GABAPENTIN 300 MG CAPSULE PO SCH ×3 (08:30→20:15)
[2020-11-12] MEDS: ENOXAPARIN SODIUM 30 MG/0.3 ML SQ SCH (08:31)
[2020-11-12] MEDS: LOSARTAN 100 MG TABLET PO SCH (08:31)
[2020-11-12] MEDS: METOPROLOL TARTRATE 50 MG TAB PO SCH ×2 (08:32→21:00)
[2020-11-12 08:33] LABS: POTASSIUM 5.3 mmol/L (3.5-5.1)
[2020-11-12] MEDS: CLOTRIMAZOLE/BETAMETHASONE DIP 45 GM CREAM.GM. TP SCH ×3 (08:33→20:17)
[2020-11-12] MEDS ORDERED: FENTANYL 2500MCG+NS 250ML 250 ML IV ONE (11:45)
[2020-11-12 12:02] LABS: CREATININE 5.7 mg/dL (0.5-1.5); POTASSIUM 4.8 mmol/L (3.5-5.1)
[2020-11-12 12:36] LABS: ABG BASE EXCESS -4.5 mmol/L (-2.0-3.0); ABG HCO3 20.9 mmol/L (21.0-28.0); ABG OXYGEN SATURATION 95.8 % (95.0-99.0); ABG PCO2 40 mmHg (35-48)
[2020-11-12] MEDS ORDERED: NOREPINEPHRINE 4MG/NS 250ML 250 ML IV PRN (13:30)
[2020-11-12] MEDS ORDERED: 0.9%NACL 50ML 50 ML IV ONE (14:21)
[2020-11-12] MEDS: MIDAZOLAM 100MG-0.9% NS 100ML 100 ML IV PRN ×2 (15:05→22:28)
[2020-11-12] MEDS ORDERED: HONEY 1 APPL/ML TUBE TP SCH (17:00)
[2020-11-13] VITALS (24 sets, daily range): BP systolic 89–165; BP diastolic 50–91
[2020-11-13] MEDS: FENTANYL 2500MCG+NS 250ML 250 ML IV PRN (01:11)
[2020-11-13] MEDS: ZOSYN 3.375GM +NS 50ML IV SCH ×2 (01:11→13:47)
[2020-11-13] MEDS: DEXTROSE 50%-WATER 50 ML DISP.SYRIN IV PRN (03:36)
[2020-11-13 03:53] LABS: BASOPHILS % (AUTO) 0.8 % (0.0-5.0); EOSINOPHILS % (AUTO) 3.1 % (0.0-8.0); HEMATOCRIT 37.4 % (42-54); LYMPHOCYTES % (AUTO) 14.1 % (21.0-51.0); MEAN CORPUSCULAR HEMOGLOBIN 27.6 pg (27.0-33.0); MEAN CORPUSCULAR HGB CONC 32.1 g/dL (32.0-36.0); MEAN CORPUSCULAR VOLUME 86.2 fL (79-99); NEUTROPHILS % (AUTO) 75.8 % (40.0-77.0); PLATELET COUNT (AUTO) 141 K/uL (130-400); RED BLOOD CELL COUNT(AUTO) 4.34 MIL/uL (4.50-6.20); RED CELL DISTRIBUTION WIDTH 15.2 % (11.0-15.5); WHITE BLOOD COUNT (AUTO) 6.5 K/uL (4.8-10.8)
[2020-11-13 04:09] LABS: CREATININE 6.1 mg/dL (0.5-1.5); POTASSIUM 3.7 mmol/L (3.5-5.1)
[2020-11-13] MEDS: INSULIN HUMULIN R 100 UNIT/ML 3ML SQ SCH ×4 (06:00→17:40)
[2020-11-13] MEDS ORDERED: PHARMACY COMMUNICATION MISC SCH (06:30)
[2020-11-13 07:14] LABS: ABG BASE EXCESS -1.3 mmol/L (-2.0-3.0); ABG HCO3 20.7 mmol/L (21.0-28.0); ABG PCO2 28 mmHg (35-48)
[2020-11-13] MEDS: LOSARTAN 100 MG TABLET PO SCH (08:11)
[2020-11-13] MEDS: DILTIAZEM 180MG SR CAP PO SCH (08:11)
[2020-11-13] MEDS: METOPROLOL TARTRATE 50 MG TAB PO SCH ×2 (08:59→20:05)
[2020-11-13] MEDS: GABAPENTIN 300 MG CAPSULE PO SCH ×3 (08:59→20:10)
[2020-11-13] MEDS: ENOXAPARIN SODIUM 30 MG/0.3 ML SQ SCH (09:42)
[2020-11-13] MEDS: FAMOTIDINE 20MG TAB PO SCH (09:42)
[2020-11-13] MEDS: FLUCONAZOLE 100 MG TAB PO SCH (09:42)
[2020-11-13] MEDS: CLOTRIMAZOLE/BETAMETHASONE DIP 45 GM CREAM.GM. TP SCH ×3 (10:31→20:11)
[2020-11-13] MEDS: MIDAZOLAM 100MG-0.9% NS 100ML 100 ML IV PRN (13:48)
[2020-11-13] MEDS: VANCOMYCIN 1.75GM/250ML NS IV SCH ×2 (16:47)
[2020-11-14] VITALS (37 sets, daily range): BP systolic 86–212; BP diastolic 49–111
[2020-11-14] MEDS: ZOSYN 3.375GM +NS 50ML IV SCH ×2 (01:21→18:28)
[2020-11-14] MEDS: FENTANYL 2500MCG+NS 250ML 250 ML IV PRN (01:24)
[2020-11-14 03:29] LABS: BASOPHILS % (AUTO) 0.5 % (0.0-5.0); EOSINOPHILS % (AUTO) 1.4 % (0.0-8.0); MEAN CORPUSCULAR HEMOGLOBIN 27.6 pg (27.0-33.0); MEAN CORPUSCULAR HGB CONC 31.2 g/dL (32.0-36.0); MEAN CORPUSCULAR VOLUME 88.6 fL (79-99); MONOCYTES % (AUTO) 7.9 % (3.0-13.0); NEUTROPHILS % (AUTO) 77.7 % (40.0-77.0); PLATELET COUNT (AUTO) 165 K/uL (130-400); RED BLOOD CELL COUNT(AUTO) 4.63 MIL/uL (4.50-6.20); RED CELL DISTRIBUTION WIDTH 15.8 % (11.0-15.5); WHITE BLOOD COUNT (AUTO) 11.1 K/uL (4.8-10.8)
[2020-11-14 03:43] LABS: ALBUMIN 1.6 g/dL (3.5-5.0); BILIRUBIN,TOTAL 0.6 mg/dL (0.2-1.0); CREATININE 6.8 mg/dL (0.5-1.5); TOTAL PROTEIN, SERUM 6.3 g/dL (6.0-8.3)
[2020-11-14] MEDS: INSULIN HUMULIN R 100 UNIT/ML 3ML SQ SCH ×4 (06:00→18:00)
[2020-11-14 08:15] LABS: HEPATITIS Bs ANTIGEN SCREEN P Negative (Negative)
[2020-11-14] MEDS: CLOTRIMAZOLE/BETAMETHASONE DIP 45 GM CREAM.GM. TP SCH ×3 (09:00→22:06)
[2020-11-14] MEDS: METOPROLOL TARTRATE 50 MG TAB PO SCH ×2 (09:00→22:02)
[2020-11-14] MEDS: ENOXAPARIN SODIUM 30 MG/0.3 ML SQ SCH (09:36)
[2020-11-14] MEDS ORDERED: AMIODARONE 150MG VIAL 150 MG in DEXTROSE 5%-WATER 100 ML IV SCH (12:00)
[2020-11-14] MEDS ORDERED: AMIODARONE 900MG VIAL 450 MG in DEXTROSE 5%-WATER 250 ML IV SCH (12:00)
[2020-11-14] MEDS ORDERED: AMIODARONE 900MG VIAL 360 MG in DEXTROSE 5%-WATER 200 ML IV SCH (12:00)
[2020-11-14] MEDS: PHENYLEPHRINE HCL 10 MG in 0.9% NACL 250ML 250 ML IV PRN (12:32)
[2020-11-14] MEDS: MIDAZOLAM 100MG-0.9% NS 100ML 100 ML IV PRN (12:51)
[2020-11-14] MEDS: LOSARTAN 100 MG TABLET PO SCH (15:51)
[2020-11-14] MEDS: FLUCONAZOLE 100 MG TAB PO SCH (15:51)
[2020-11-14] MEDS: FAMOTIDINE 20MG TAB PO SCH (15:52)
[2020-11-14] MEDS: GABAPENTIN 300 MG CAPSULE PO SCH ×3 (15:52→22:02)
[2020-11-14] MEDS: DILTIAZEM 60MG TAB PO SCH ×2 (15:52→18:00)
[2020-11-14] MEDS: CHLORHEXIDINE GLUCONATE 473 ML MOUTHWASH MM SCH (22:03)
[2020-11-14] MEDS: ARTIFICIAL TEARS 3.5 GM OINTMENT OU SCH (22:04)
[2020-11-15] VITALS (36 sets, daily range): BP systolic 57–139; BP diastolic 31–87
[2020-11-15] MEDS: DILTIAZEM 60MG TAB PO SCH ×4 (00:03→18:00)
[2020-11-15] MEDS: ZOSYN 3.375GM +NS 50ML IV SCH ×2 (01:57→14:21)
[2020-11-15 04:15] LABS: ABG BASE EXCESS 1.3 mmol/L (-2.0-3.0); ABG HCO3 22.7 mmol/L (21.0-28.0); ABG OXYGEN SATURATION 94.6 % (95.0-99.0); ABG PCO2 28 mmHg (35-48)
[2020-11-15 04:43] LABS: HEMATOCRIT 35.2 % (42-54); MEAN CORPUSCULAR HGB CONC 31.8 g/dL (32.0-36.0); RED CELL DISTRIBUTION WIDTH 15.7 % (11.0-15.5); WHITE BLOOD COUNT (AUTO) 11.3 K/uL (4.8-10.8)
[2020-11-15 05:06] LABS: ALBUMIN 1.3 g/dL (3.5-5.0); BILIRUBIN,TOTAL 0.7 mg/dL (0.2-1.0); CREATININE 5.5 mg/dL (0.5-1.5); MAGNESIUM 1.9 mg/dL (1.80-2.40); PHOSPHORUS 3.9 mg/dL (2.5-4.9); POTASSIUM 3.7 mmol/L (3.5-5.1)
[2020-11-15] MEDS: INSULIN HUMULIN R 100 UNIT/ML 3ML SQ SCH ×4 (06:00→18:00)
[2020-11-15] MEDS: CHLORHEXIDINE GLUCONATE 473 ML MOUTHWASH MM SCH ×4 (06:22→20:30)
[2020-11-15 07:08] LABS: INR 1.38 (0.85-1.15); PROTHROMBIN TIME 14.6 SEC (9.6-11.6)
[2020-11-15] MEDS: METOPROLOL TARTRATE 50 MG TAB PO SCH ×2 (10:00→21:00)
[2020-11-15] MEDS: FLUCONAZOLE 100 MG TAB PO SCH (10:00)
[2020-11-15] MEDS: FAMOTIDINE 20MG TAB PO SCH (10:00)
[2020-11-15] MEDS: GABAPENTIN 300 MG CAPSULE PO SCH ×3 (10:00→21:00)
[2020-11-15] MEDS: LOSARTAN 100 MG TABLET PO SCH (10:00)
[2020-11-15] MEDS: ENOXAPARIN SODIUM 30 MG/0.3 ML SQ SCH (10:01)
[2020-11-15] MEDS: CLOTRIMAZOLE/BETAMETHASONE DIP 45 GM CREAM.GM. TP SCH ×3 (10:02→21:00)
[2020-11-15 11:46] LABS: ABG BASE EXCESS 0.6 mmol/L (-2.0-3.0); ABG OXYGEN SATURATION 96.1 % (95.0-99.0); ABG PCO2 39 mmHg (35-48)
[2020-11-15] MEDS ORDERED: OCTREOTIDE ACETATE 100 MCG/ML AMP SQ SCH (14:00)
[2020-11-15] MEDS ORDERED: ALBUMIN (HUMAN) 25% 50 ML IV SCH (14:00)
[2020-11-15] MEDS ORDERED: MIDODRINE HCL 5 MG TABLET PO SCH (14:00)
[2020-11-15] MEDS: VANCOMYCIN 1.75GM/250ML NS IV SCH ×2 (15:32)
[2020-11-15] MEDS ORDERED: IOHEXOL-350 75 ML VIAL IV ONE ×3 (18:07→18:53)
[2020-11-15] MEDS ORDERED: SODIUM BICARBONATE 650 MG TAB PO SCH (21:00)
[2020-11-15] MEDS: ARTIFICIAL TEARS 3.5 GM OINTMENT OU SCH (21:00)
[2020-11-16] VITALS (59 sets, daily range): BP systolic 84–164; BP diastolic 21–100
[2020-11-16] MEDS: ZOSYN 3.375GM +NS 50ML IV SCH ×2 (03:23→13:58)
[2020-11-16] MEDS: CHLORHEXIDINE GLUCONATE 473 ML MOUTHWASH MM SCH ×4 (03:23→21:10)
[2020-11-16 04:01] LABS: MEAN CORPUSCULAR HEMOGLOBIN 27.8 pg (27.0-33.0); MEAN CORPUSCULAR HGB CONC 31.8 g/dL (32.0-36.0); MEAN CORPUSCULAR VOLUME 87.2 fL (79-99); RED BLOOD CELL COUNT(AUTO) 4.36 MIL/uL (4.50-6.20); RED CELL DISTRIBUTION WIDTH 15.9 % (11.0-15.5); WHITE BLOOD COUNT (AUTO) 13.3 K/uL (4.8-10.8)
[2020-11-16 04:18] LABS: AMMONIA < 10 umol/L (11-32)
[2020-11-16 04:30] LABS: CARBON DIOXIDE 26 mmol/L (21-32); CHLORIDE 103 mmol/L (101-111); CREATININE 6.5 mg/dL (0.5-1.5); GLOMERULAR FILTR. RATE CALC 10 mL/min (>60); GLUCOSE,RANDOM 115 mg/dL (70-105); POTASSIUM 4.2 mmol/L (3.5-5.1); SODIUM SERUM 139 mmol/L (136-145); THYROID STIMULATING HORMONE 2.03 uIU/mL (0.36-3.74); UREA NITROGEN, BLOOD 45 mg/dL (7-18)
[2020-11-16] MEDS: INSULIN HUMULIN R 100 UNIT/ML 3ML SQ SCH ×4 (06:00→17:58)
[2020-11-16] MEDS: DILTIAZEM 60MG TAB PO SCH ×4 (06:00→17:05)
[2020-11-16 07:04] LABS: ABG BASE EXCESS -2.2 mmol/L (-2.0-3.0); ABG OXYGEN SATURATION 95.3 % (95.0-99.0); ABG PCO2 36 mmHg (35-48)
[2020-11-16] MEDS: GABAPENTIN 300 MG CAPSULE PO SCH ×3 (08:33→22:00)
[2020-11-16] MEDS: FAMOTIDINE 20MG TAB PO SCH (08:33)
[2020-11-16] MEDS: LOSARTAN 100 MG TABLET PO SCH (08:35)
[2020-11-16] MEDS: METOPROLOL TARTRATE 50 MG TAB PO SCH ×2 (08:35→21:00)
[2020-11-16] MEDS: FLUCONAZOLE 100 MG TAB PO SCH (08:35)
[2020-11-16] MEDS: ENOXAPARIN SODIUM 30 MG/0.3 ML SQ SCH (08:36)
[2020-11-16] MEDS: CLOTRIMAZOLE/BETAMETHASONE DIP 45 GM CREAM.GM. TP SCH ×3 (08:37→21:09)
[2020-11-16] MEDS ORDERED: Vitamin B Complex/Vit C/Folic Acid PO SCH (09:00)
[2020-11-16] MEDS ORDERED: THIAMINE HCL 100 MG/ML 2ML VIAL IVP SCH (09:00)
[2020-11-16] MEDS ORDERED: 0.9%NACL 1000ML 2,000 ML IV ONE (10:57)
[2020-11-16] MEDS ORDERED: PHARMACY COMMUNICATION MISC SCH (12:00)
[2020-11-16] MEDS ORDERED: ALBUMIN (HUMAN) 25% 100 ML IV ONE (12:08)
[2020-11-16] MEDS ORDERED: FOSPHENYTOIN SODIUM 1,500 MG in 0.9%NACL 100ML 100 ML IJ SCH (13:00)
[2020-11-16] MEDS ORDERED: COMPOUND IV MISC 1 EACH IVSOLN MISC PRN (13:30)
[2020-11-16] MEDS ORDERED: 0.9%NACL 1000ML 1,000 ML IV ONE (15:16)
[2020-11-16] MEDS: PHENYLEPHRINE HCL 10 MG in 0.9% NACL 250ML 250 ML IV PRN (18:52)
[2020-11-16] MEDS: FOSPHENYTOIN SODIUM 200 MG in 0.9%NACL 50ML 50 ML IV SCH (21:07)
[2020-11-16] MEDS: ARTIFICIAL TEARS 3.5 GM OINTMENT OU SCH (21:10)
[2020-11-17] VITALS (39 sets, daily range): BP systolic 93–152; BP diastolic 38–104
[2020-11-17] MEDS: ZOSYN 3.375GM +NS 50ML IV SCH ×2 (04:04→14:00)
[2020-11-17] MEDS: CHLORHEXIDINE GLUCONATE 473 ML MOUTHWASH MM SCH ×4 (04:06→20:04)
[2020-11-17] MEDS: DILTIAZEM 60MG TAB PO SCH ×2 (05:38)
[2020-11-17] MEDS: FOSPHENYTOIN SODIUM 200 MG in 0.9%NACL 50ML 50 ML IV SCH (05:38)
[2020-11-17] MEDS: INSULIN HUMULIN R 100 UNIT/ML 3ML SQ SCH ×4 (05:58→18:00)
[2020-11-17 05:59] LABS: BASOPHILS % (AUTO) 0.5 % (0.0-5.0); EOSINOPHILS % (AUTO) 1.9 % (0.0-8.0); HEMATOCRIT 36.7 % (42-54); LYMPHOCYTES % (AUTO) 6.1 % (21.0-51.0); MEAN CORPUSCULAR HEMOGLOBIN 27.7 pg (27.0-33.0); MEAN CORPUSCULAR HGB CONC 32.2 g/dL (32.0-36.0); MEAN CORPUSCULAR VOLUME 86.2 fL (79-99); MONOCYTES % (AUTO) 5.2 % (3.0-13.0); NEUTROPHILS % (AUTO) 85.9 % (40.0-77.0); PLATELET COUNT (AUTO) 167 K/uL (130-400); RED BLOOD CELL COUNT(AUTO) 4.26 MIL/uL (4.50-6.20); RED CELL DISTRIBUTION WIDTH 15.9 % (11.0-15.5); WHITE BLOOD COUNT (AUTO) 12.7 K/uL (4.8-10.8)
[2020-11-17 06:22] LABS: CREATININE 5.3 mg/dL (0.5-1.5); POTASSIUM 3.8 mmol/L (3.5-5.1)
[2020-11-17 08:54] LABS: ABG BASE EXCESS 0.2 mmol/L (-2.0-3.0); ABG HCO3 24.6 mmol/L (21.0-28.0); ABG OXYGEN SATURATION 93.4 % (95.0-99.0); ABG PCO2 39 mmHg (35-48)
[2020-11-17] MEDS: METOPROLOL TARTRATE 50 MG TAB PO SCH ×2 (09:00→20:03)
[2020-11-17] MEDS: LOSARTAN 100 MG TABLET PO SCH (09:00)
[2020-11-17] MEDS: FLUCONAZOLE 100 MG TAB PO SCH (09:35)
[2020-11-17] MEDS: CLOTRIMAZOLE/BETAMETHASONE DIP 45 GM CREAM.GM. TP SCH ×3 (09:35→20:05)
[2020-11-17] MEDS: ENOXAPARIN SODIUM 30 MG/0.3 ML SQ SCH (09:35)
[2020-11-17] MEDS: FAMOTIDINE 20MG TAB PO SCH (09:35)
[2020-11-17] MEDS: GABAPENTIN 300 MG CAPSULE PO SCH ×3 (09:35→20:04)
[2020-11-17] MEDS: APIXABAN 5 MG TABLET PO SCH (20:03)
[2020-11-17] MEDS: ARTIFICIAL TEARS 3.5 GM OINTMENT OU SCH (20:04)
[2020-11-18] VITALS (41 sets, daily range): BP systolic 105–168; BP diastolic 41–116
[2020-11-18] MEDS: ZOSYN 3.375GM +NS 50ML IV SCH ×2 (01:00→13:03)
[2020-11-18] MEDS: CHLORHEXIDINE GLUCONATE 473 ML MOUTHWASH MM SCH ×4 (01:42→21:11)
[2020-11-18 03:35] LABS: HEMATOCRIT 36.5 % (42-54); MEAN CORPUSCULAR HEMOGLOBIN 27.9 pg (27.0-33.0); MEAN CORPUSCULAR HGB CONC 32.3 g/dL (32.0-36.0); MEAN CORPUSCULAR VOLUME 86.3 fL (79-99); RED BLOOD CELL COUNT(AUTO) 4.23 MIL/uL (4.50-6.20); RED CELL DISTRIBUTION WIDTH 15.7 % (11.0-15.5); WHITE BLOOD COUNT (AUTO) 12.6 K/uL (4.8-10.8)
[2020-11-18 03:46] LABS: CREATININE 5.9 mg/dL (0.5-1.5)
[2020-11-18 03:48] LABS: ABG BASE EXCESS 0.4 mmol/L (-2.0-3.0); ABG HCO3 24.7 mmol/L (21.0-28.0); ABG PCO2 39 mmHg (35-48)
[2020-11-18] MEDS: FOSPHENYTOIN SODIUM 100 MG in 0.9%NACL 50ML 50 ML IV SCH ×3 (05:28→21:10)
[2020-11-18] MEDS: INSULIN HUMULIN R 100 UNIT/ML 3ML SQ SCH ×5 (05:52→23:04)
[2020-11-18] MEDS: METOPROLOL TARTRATE 50 MG TAB PO SCH ×2 (08:18→21:08)
[2020-11-18] MEDS: FAMOTIDINE 20MG TAB PO SCH (08:18)
[2020-11-18] MEDS: FLUCONAZOLE 100 MG TAB PO SCH (08:18)
[2020-11-18] MEDS: APIXABAN 5 MG TABLET PO SCH ×2 (08:18→21:08)
[2020-11-18] MEDS: CLOTRIMAZOLE/BETAMETHASONE DIP 45 GM CREAM.GM. TP SCH ×3 (08:19→21:11)
[2020-11-18] MEDS: GABAPENTIN 300 MG CAPSULE PO SCH ×3 (08:21→21:09)
[2020-11-18] MEDS ORDERED: ENOXAPARIN SODIUM 60 MG/0.6 ML SQ SCH (09:00)
[2020-11-18] MEDS: LOSARTAN 100 MG TABLET PO SCH (09:47)
[2020-11-18 10:26] LABS: ABG BASE EXCESS 0.5 mmol/L (-2.0-3.0); ABG HCO3 25.2 mmol/L (21.0-28.0); ABG OXYGEN SATURATION 96.5 % (95.0-99.0); ABG PCO2 41 mmHg (35-48)
[2020-11-18] MEDS ORDERED: 0.9%NACL 50ML 50 ML IV ONE (13:01)
[2020-11-18] MEDS: CHOLESTYRAMINE PACKET 4 GM PACKET PO SCH (17:00)
[2020-11-18] MEDS: ARTIFICIAL TEARS 3.5 GM OINTMENT OU SCH (21:11)
[2020-11-19] VITALS (61 sets, daily range): BP systolic 89–156; BP diastolic 32–115
[2020-11-19] MEDS: ZOSYN 3.375GM +NS 50ML IV SCH ×2 (01:01→13:56)
[2020-11-19] MEDS: CHLORHEXIDINE GLUCONATE 473 ML MOUTHWASH MM SCH ×4 (02:16→20:12)
[2020-11-19 04:38] LABS: HEMATOCRIT 36.3 % (42-54); MEAN CORPUSCULAR HEMOGLOBIN 27.8 pg (27.0-33.0); MEAN CORPUSCULAR VOLUME 86.8 fL (79-99); RED BLOOD CELL COUNT(AUTO) 4.18 MIL/uL (4.50-6.20); RED CELL DISTRIBUTION WIDTH 15.8 % (11.0-15.5); WHITE BLOOD COUNT (AUTO) 13.9 K/uL (4.8-10.8)
[2020-11-19 04:51] LABS: CREATININE 6.6 mg/dL (0.5-1.5); POTASSIUM 3.9 mmol/L (3.5-5.1)
[2020-11-19] MEDS: INSULIN HUMULIN R 100 UNIT/ML 3ML SQ SCH ×4 (05:00→23:42)
[2020-11-19] MEDS: METOPROLOL TARTRATE 50 MG TAB PO SCH ×2 (08:26→20:06)
[2020-11-19] MEDS: APIXABAN 5 MG TABLET PO SCH ×2 (08:26→20:07)
[2020-11-19] MEDS: FAMOTIDINE 20MG TAB PO SCH (08:26)
[2020-11-19] MEDS: FLUCONAZOLE 100 MG TAB PO SCH (08:26)
[2020-11-19] MEDS: GABAPENTIN 300 MG CAPSULE PO SCH ×3 (08:31→20:12)
[2020-11-19] MEDS: CHOLESTYRAMINE PACKET 4 GM PACKET PO SCH (08:31)
[2020-11-19] MEDS: CLOTRIMAZOLE/BETAMETHASONE DIP 45 GM CREAM.GM. TP SCH ×3 (08:32→20:14)
[2020-11-19] MEDS: LOSARTAN 100 MG TABLET PO SCH (09:00)
[2020-11-19 09:33] LABS: ABG BASE EXCESS 0.5 mmol/L (-2.0-3.0); ABG HCO3 24.9 mmol/L (21.0-28.0); ABG OXYGEN SATURATION 94.1 % (95.0-99.0); ABG PCO2 40 mmHg (35-48)
[2020-11-19] MEDS ORDERED: 0.9%NACL 1000ML 2,000 ML IV ONE (10:15)
[2020-11-19] MEDS ORDERED: 0.9%NACL 50ML 50 ML IV ONE (13:55)
[2020-11-19] MEDS ORDERED: PROPOFOL 1000 MG/100 ML IV PRN (14:30)
[2020-11-19] MEDS ORDERED: PROPOFOL 1000 MG/100 ML 100 ML IV ONE (14:39)
[2020-11-19] MEDS: PROPOFOL 1000 MG/100 ML 100 ML IV SCH (14:42)
[2020-11-19] MEDS: FOSPHENYTOIN SODIUM 100 MG in 0.9%NACL 50ML 50 ML IV SCH (20:06)
[2020-11-19] MEDS: ARTIFICIAL TEARS 3.5 GM OINTMENT OU SCH (20:12)
[2020-11-19] MEDS: ACETAMINOPHEN 325 MG TAB PO PRN (21:51)
[2020-11-20] VITALS (35 sets, daily range): BP systolic 91–146; BP diastolic 47–111
[2020-11-20] MEDS: ZOSYN 3.375GM +NS 50ML IV SCH ×2 (01:58→13:31)
[2020-11-20] MEDS: CHLORHEXIDINE GLUCONATE 473 ML MOUTHWASH MM SCH ×4 (01:59→20:25)
[2020-11-20] MEDS: PROPOFOL 1000 MG/100 ML 100 ML IV SCH (03:09)
[2020-11-20 05:12] LABS: HEMATOCRIT 35.6 % (42-54); MEAN CORPUSCULAR HEMOGLOBIN 27.7 pg (27.0-33.0); MEAN CORPUSCULAR HGB CONC 31.5 g/dL (32.0-36.0); MEAN CORPUSCULAR VOLUME 88.1 fL (79-99); RED BLOOD CELL COUNT(AUTO) 4.04 MIL/uL (4.50-6.20); RED CELL DISTRIBUTION WIDTH 15.6 % (11.0-15.5); WHITE BLOOD COUNT (AUTO) 11.6 K/uL (4.8-10.8)
[2020-11-20] MEDS: INSULIN HUMULIN R 100 UNIT/ML 3ML SQ SCH ×4 (05:32→23:30)
[2020-11-20 06:13] LABS: ALBUMIN 1.4 g/dL (3.5-5.0); BILIRUBIN,TOTAL 0.6 mg/dL (0.2-1.0); CREATININE 5.4 mg/dL (0.5-1.5); MAGNESIUM 2.2 mg/dL (1.80-2.40); PHOSPHORUS 4.5 mg/dL (2.5-4.9); POTASSIUM 3.8 mmol/L (3.5-5.1); TOTAL PROTEIN, SERUM 6.8 g/dL (6.0-8.3)
[2020-11-20] MEDS: FOSPHENYTOIN SODIUM 100 MG in 0.9%NACL 50ML 50 ML IV SCH ×2 (08:25→20:25)
[2020-11-20] MEDS: METOPROLOL TARTRATE 50 MG TAB PO SCH ×2 (08:28→20:54)
[2020-11-20] MEDS: GABAPENTIN 300 MG CAPSULE PO SCH ×3 (08:29→20:25)
[2020-11-20] MEDS: FAMOTIDINE 20MG TAB PO SCH (08:29)
[2020-11-20] MEDS: FLUCONAZOLE 100 MG TAB PO SCH (08:29)
[2020-11-20] MEDS: APIXABAN 5 MG TABLET PO SCH ×2 (08:29→20:25)
[2020-11-20] MEDS: CHOLESTYRAMINE PACKET 4 GM PACKET PO SCH (08:30)
[2020-11-20] MEDS: CLOTRIMAZOLE/BETAMETHASONE DIP 45 GM CREAM.GM. TP SCH ×3 (08:32→20:25)
[2020-11-20 09:11] LABS: ABG BASE EXCESS 1.9 mmol/L (-2.0-3.0); ABG HCO3 26.6 mmol/L (21.0-28.0); ABG PCO2 42 mmHg (35-48)
[2020-11-20] MEDS: LOSARTAN 100 MG TABLET PO SCH (10:13)
[2020-11-20] MEDS: IPRATROPIUM 0.5 MG/2.5 ML INH IH SCH (19:00)
[2020-11-20] MEDS: ARTIFICIAL TEARS 3.5 GM OINTMENT OU SCH (20:25)
[2020-11-20] MEDS: ACETAMINOPHEN 325 MG TAB PO PRN (20:37)
[2020-11-21] VITALS (52 sets, daily range): BP systolic 69–156; BP diastolic 42–113
[2020-11-21] MEDS: IPRATROPIUM 0.5 MG/2.5 ML INH IH SCH ×3 (00:49→11:43)
[2020-11-21] MEDS: CHLORHEXIDINE GLUCONATE 473 ML MOUTHWASH MM SCH ×4 (01:46→19:43)
[2020-11-21] MEDS: ZOSYN 3.375GM +NS 50ML IV SCH ×2 (01:46→14:15)
[2020-11-21 03:42] LABS: HEMATOCRIT 39.8 % (42-54); MEAN CORPUSCULAR HEMOGLOBIN 28.2 pg (27.0-33.0); MEAN CORPUSCULAR HGB CONC 31.7 g/dL (32.0-36.0); RED BLOOD CELL COUNT(AUTO) 4.47 MIL/uL (4.50-6.20); RED CELL DISTRIBUTION WIDTH 15.9 % (11.0-15.5); WHITE BLOOD COUNT (AUTO) 15.2 K/uL (4.8-10.8)
[2020-11-21 03:53] LABS: CREATININE 6.2 mg/dL (0.5-1.5); PHOSPHORUS 5.2 mg/dL (2.5-4.9); POTASSIUM 3.8 mmol/L (3.5-5.1)
[2020-11-21] MEDS: INSULIN HUMULIN R 100 UNIT/ML 3ML SQ SCH ×4 (05:27→23:47)
[2020-11-21] MEDS: FOSPHENYTOIN SODIUM 100 MG in 0.9%NACL 50ML 50 ML IV SCH ×2 (09:00→20:47)
[2020-11-21] MEDS ORDERED: 0.9%NACL 1000ML 1,000 ML IV ONE (09:02)
[2020-11-21] MEDS: CHOLESTYRAMINE PACKET 4 GM PACKET PO SCH (09:37)
[2020-11-21] MEDS: CLOTRIMAZOLE/BETAMETHASONE DIP 45 GM CREAM.GM. TP SCH ×3 (09:38→20:49)
[2020-11-21] MEDS: FLUCONAZOLE 100 MG TAB PO SCH (09:38)
[2020-11-21] MEDS: FAMOTIDINE 20MG TAB PO SCH (09:38)
[2020-11-21] MEDS: APIXABAN 5 MG TABLET PO SCH ×2 (09:38→19:42)
[2020-11-21] MEDS: GABAPENTIN 300 MG CAPSULE PO SCH ×3 (09:38→20:50)
[2020-11-21] MEDS: LOSARTAN 100 MG TABLET PO SCH (13:00)
[2020-11-21] MEDS: METOPROLOL TARTRATE 50 MG TAB PO SCH ×2 (13:00→20:49)
[2020-11-21] MEDS: VANCOMYCIN 1.25GM/NS 250ML IVPB SCH ×2 (14:00)
[2020-11-21] MEDS: ACETAMINOPHEN 325 MG TAB PO PRN (19:43)
[2020-11-21] MEDS: ARTIFICIAL TEARS 3.5 GM OINTMENT OU SCH (19:43)
[2020-11-22] VITALS (21 sets, daily range): BP systolic 97–166; BP diastolic 25–95
[2020-11-22] MEDS: IPRATROPIUM 0.5 MG/2.5 ML INH IH SCH ×5 (00:28→23:41)
[2020-11-22] MEDS: ZOSYN 3.375GM +NS 50ML IV SCH ×2 (01:50→14:27)
[2020-11-22] MEDS: CHLORHEXIDINE GLUCONATE 473 ML MOUTHWASH MM SCH ×4 (01:50→21:34)
[2020-11-22 03:46] LABS: HEMATOCRIT 35.3 % (42-54); MEAN CORPUSCULAR HEMOGLOBIN 27.5 pg (27.0-33.0); MEAN CORPUSCULAR HGB CONC 31.7 g/dL (32.0-36.0); MEAN CORPUSCULAR VOLUME 86.7 fL (79-99); RED BLOOD CELL COUNT(AUTO) 4.07 MIL/uL (4.50-6.20); WHITE BLOOD COUNT (AUTO) 18.5 K/uL (4.8-10.8)
[2020-11-22 04:01] LABS: ALBUMIN 1.2 g/dL (3.5-5.0); BILIRUBIN,TOTAL 1.3 mg/dL (0.2-1.0); CREATININE 4.7 mg/dL (0.5-1.5); MAGNESIUM 2.3 mg/dL (1.80-2.40); PHOSPHORUS 4.2 mg/dL (2.5-4.9); POTASSIUM 3.8 mmol/L (3.5-5.1); TOTAL PROTEIN, SERUM 6.4 g/dL (6.0-8.3)
[2020-11-22] MEDS: INSULIN HUMULIN R 100 UNIT/ML 3ML SQ SCH ×3 (06:00→17:07)
[2020-11-22] MEDS: LOSARTAN 100 MG TABLET PO SCH (09:00)
[2020-11-22] MEDS: GABAPENTIN 300 MG CAPSULE PO SCH ×3 (09:27→21:29)
[2020-11-22] MEDS: CHOLESTYRAMINE PACKET 4 GM PACKET PO SCH (09:28)
[2020-11-22] MEDS: FLUCONAZOLE 100 MG TAB PO SCH (09:28)
[2020-11-22] MEDS: APIXABAN 5 MG TABLET PO SCH ×2 (09:28→21:32)
[2020-11-22] MEDS: METOPROLOL TARTRATE 50 MG TAB PO SCH ×2 (09:28→21:32)
[2020-11-22] MEDS: FAMOTIDINE 20MG TAB PO SCH (09:28)
[2020-11-22] MEDS: CLOTRIMAZOLE/BETAMETHASONE DIP 45 GM CREAM.GM. TP SCH ×3 (09:29→21:35)
[2020-11-22] MEDS: FOSPHENYTOIN SODIUM 100 MG in 0.9%NACL 50ML 50 ML IV SCH ×2 (10:13→21:34)
[2020-11-22] MEDS: ACETAMINOPHEN 325 MG TAB PO PRN (10:13)
[2020-11-22] MEDS: ARTIFICIAL TEARS 3.5 GM OINTMENT OU SCH (21:34)
[2020-11-23] VITALS (20 sets, daily range): BP systolic 116–175; BP diastolic 35–95
[2020-11-23] MEDS: ZOSYN 3.375GM +NS 50ML IV SCH ×2 (02:31→15:18)
[2020-11-23] MEDS: CHLORHEXIDINE GLUCONATE 473 ML MOUTHWASH MM SCH ×4 (02:34→19:56)
[2020-11-23 04:15] LABS: HEMATOCRIT 34.2 % (42-54); MEAN CORPUSCULAR HEMOGLOBIN 28.3 pg (27.0-33.0); MEAN CORPUSCULAR HGB CONC 32.2 g/dL (32.0-36.0); MEAN CORPUSCULAR VOLUME 87.9 fL (79-99); RED BLOOD CELL COUNT(AUTO) 3.89 MIL/uL (4.50-6.20); RED CELL DISTRIBUTION WIDTH 16.2 % (11.0-15.5); WHITE BLOOD COUNT (AUTO) 17.9 K/uL (4.8-10.8)
[2020-11-23 04:30] LABS: CREATININE 5.6 mg/dL (0.5-1.5); POTASSIUM 3.9 mmol/L (3.5-5.1)
[2020-11-23] MEDS: INSULIN HUMULIN R 100 UNIT/ML 3ML SQ SCH ×5 (05:23→23:56)
[2020-11-23] MEDS: IPRATROPIUM 0.5 MG/2.5 ML INH IH SCH ×5 (07:01→23:51)
[2020-11-23] MEDS: APIXABAN 5 MG TABLET PO SCH ×2 (09:00→19:56)
[2020-11-23] MEDS: LOSARTAN 100 MG TABLET PO SCH (09:00)
[2020-11-23] MEDS: METOPROLOL TARTRATE 50 MG TAB PO SCH ×2 (09:00→19:56)
[2020-11-23] MEDS: FOSPHENYTOIN SODIUM 100 MG in 0.9%NACL 50ML 50 ML IV SCH ×2 (11:48→21:15)
[2020-11-23] MEDS: FAMOTIDINE 20MG TAB PO SCH (11:51)
[2020-11-23] MEDS: GABAPENTIN 300 MG CAPSULE PO SCH ×3 (11:52→19:56)
[2020-11-23] MEDS: FLUCONAZOLE 100 MG TAB PO SCH (11:52)
[2020-11-23] MEDS: CHOLESTYRAMINE PACKET 4 GM PACKET PO SCH (11:52)
[2020-11-23] MEDS: CLOTRIMAZOLE/BETAMETHASONE DIP 45 GM CREAM.GM. TP SCH ×3 (11:53→20:09)
[2020-11-23] MEDS: ACETAMINOPHEN 325 MG TAB PO PRN (13:23)
[2020-11-23] MEDS: VANCOMYCIN 1.25GM/NS 250ML IVPB SCH ×2 (14:00)
[2020-11-23] MEDS: ARTIFICIAL TEARS 3.5 GM OINTMENT OU SCH (19:56)
[2020-11-24] VITALS (19 sets, daily range): BP systolic 107–164; BP diastolic 32–78
[2020-11-24] MEDS: ZOSYN 3.375GM +NS 50ML IV SCH ×2 (01:38→15:10)
[2020-11-24] MEDS: CHLORHEXIDINE GLUCONATE 473 ML MOUTHWASH MM SCH ×4 (01:39→20:36)
[2020-11-24 04:41] LABS: HEMATOCRIT 33.3 % (42-54); MEAN CORPUSCULAR HEMOGLOBIN 27.7 pg (27.0-33.0); MEAN CORPUSCULAR HGB CONC 32.1 g/dL (32.0-36.0); MEAN CORPUSCULAR VOLUME 86.3 fL (79-99); PLATELET COUNT (AUTO) 240 K/uL (130-400); RED BLOOD CELL COUNT(AUTO) 3.86 MIL/uL (4.50-6.20); RED CELL DISTRIBUTION WIDTH 16.3 % (11.0-15.5); WHITE BLOOD COUNT (AUTO) 14.6 K/uL (4.8-10.8)
[2020-11-24 05:06] LABS: ALBUMIN 1.1 g/dL (3.5-5.0); CREATININE 4.4 mg/dL (0.5-1.5); POTASSIUM 3.1 mmol/L (3.5-5.1); TOTAL PROTEIN, SERUM 6.4 g/dL (6.0-8.3)
[2020-11-24] MEDS: INSULIN HUMULIN R 100 UNIT/ML 3ML SQ SCH ×3 (05:47→18:00)
[2020-11-24 06:05] LABS: EOSINOPHILS % (MANUAL) 2 % (1-6); LYMPHOCYTES % (MANUAL) 7 % (22-44); MONOCYTES % (MANUAL) 2 % (2-9); SEGMENTED NEUTROPHILS % 89 % (40-70)
[2020-11-24] MEDS: IPRATROPIUM 0.5 MG/2.5 ML INH IH SCH ×3 (07:48→18:48)
[2020-11-24 08:56] LABS: AMMONIA < 10 umol/L (11-32); CHOLESTEROL 88 mg/dL (<200); HDL CHOLESTEROL 9 mg/dL (29-71); LDL DIRECT 50 mg/dL (0-99); TRIGLYCERIDES 110 mg/dL (30-200)
[2020-11-24] MEDS: FLUCONAZOLE 100 MG TAB PO SCH (11:08)
[2020-11-24] MEDS: METOPROLOL TARTRATE 50 MG TAB PO SCH ×2 (11:09→20:36)
[2020-11-24] MEDS: LOSARTAN 100 MG TABLET PO SCH (11:09)
[2020-11-24] MEDS: FAMOTIDINE 20MG TAB PO SCH (11:09)
[2020-11-24] MEDS: CLOTRIMAZOLE/BETAMETHASONE DIP 45 GM CREAM.GM. TP SCH ×3 (11:09→20:37)
[2020-11-24] MEDS: FOSPHENYTOIN SODIUM 100 MG in 0.9%NACL 50ML 50 ML IV SCH ×2 (11:09→20:36)
[2020-11-24 11:50] LABS: INR 1.36 (0.85-1.15); PROTHROMBIN TIME 14.4 SEC (9.6-11.6)
[2020-11-24] MEDS ORDERED: FENTANYL CITRATE PF 50 MCG/1 ML 2ML VIAL ONE (17:22)
[2020-11-24] MEDS ORDERED: MIDAZOLAM HCL 1 MG/ML 2ML VIAL ONE (17:22)
[2020-11-24] MEDS ORDERED: PROPOFOL 10 MG/ML 20ML VIAL IV ONE (17:23)
[2020-11-24] MEDS ORDERED: LIDOCAINE PF 100MG/5ML (2%) SYRINGE 5ML ONE (17:23)
[2020-11-24] MEDS ORDERED: KETAMINE 50MG/ML SYRINGE 50 MG/ML DISP.SYRIN IV ONE (17:42)
[2020-11-24] MEDS ORDERED: ESMOLOL HCL 10 MG/ML 10 ML VIAL ONE (17:57)
[2020-11-24] MEDS: MORPHINE 2 MG SYG IVP PRN (21:35)
[2020-11-25] MEDS: IPRATROPIUM 0.5 MG/2.5 ML INH IH SCH ×5 (00:15→23:12)
[2020-11-25] MEDS: MORPHINE 2 MG SYG IVP PRN ×2 (01:05→20:33)
[2020-11-25] MEDS: ZOSYN 3.375GM +NS 50ML IV SCH (01:46)
[2020-11-25] MEDS: CHLORHEXIDINE GLUCONATE 473 ML MOUTHWASH MM SCH ×4 (01:48→20:33)
[2020-11-25 03:25] VITALS: BP 107/62
[2020-11-25 04:29] LABS: BASOPHILS % (AUTO) 0.2 % (0.0-5.0); EOSINOPHILS % (AUTO) 1.3 % (0.0-8.0); HEMATOCRIT 34.5 % (42-54); MEAN CORPUSCULAR HEMOGLOBIN 27.2 pg (27.0-33.0); MEAN CORPUSCULAR HGB CONC 31.3 g/dL (32.0-36.0); MEAN CORPUSCULAR VOLUME 86.9 fL (79-99); MONOCYTES % (AUTO) 5.2 % (3.0-13.0); NEUTROPHILS % (AUTO) 88.4 % (40.0-77.0); PLATELET COUNT (AUTO) 244 K/uL (130-400); RED BLOOD CELL COUNT(AUTO) 3.97 MIL/uL (4.50-6.20); RED CELL DISTRIBUTION WIDTH 16.3 % (11.0-15.5); WHITE BLOOD COUNT (AUTO) 11.8 K/uL (4.8-10.8)
[2020-11-25 05:12] LABS: ALBUMIN 1.3 g/dL (3.5-5.0); BILIRUBIN,TOTAL 2.9 mg/dL (0.2-1.0); CREATININE 4.9 mg/dL (0.5-1.5); POTASSIUM 3.3 mmol/L (3.5-5.1); TOTAL PROTEIN, SERUM 6.6 g/dL (6.0-8.3)
[2020-11-25] MEDS: INSULIN HUMULIN R 100 UNIT/ML 3ML SQ SCH ×5 (05:32→23:15)
[2020-11-25 08:00] VITALS: BP 122/73
[2020-11-25] MEDS: FOSPHENYTOIN SODIUM 100 MG in 0.9%NACL 50ML 50 ML IV SCH (11:15)
[2020-11-25] MEDS: LOSARTAN 100 MG TABLET PO SCH (11:20)
[2020-11-25] MEDS: METOPROLOL TARTRATE 50 MG TAB PO SCH ×2 (11:20→20:32)
[2020-11-25] MEDS: FAMOTIDINE 20MG TAB PO SCH (11:20)
[2020-11-25] MEDS: FLUCONAZOLE 100 MG TAB PO SCH (11:20)
[2020-11-25] MEDS: CLOTRIMAZOLE/BETAMETHASONE DIP 45 GM CREAM.GM. TP SCH ×3 (11:21→20:33)
[2020-11-25 12:00] VITALS: BP 104/74
[2020-11-25 16:00] VITALS: BP 112/61
[2020-11-25] MEDS: SODIUM HYPOCHLORITE 0.5% [FULL STRENGTH] 473 ML TOPICAL SOLN TP SCH (17:30)
[2020-11-25 19:59] VITALS: BP 123/81
[2020-11-25] MEDS ORDERED: APIXABAN 5 MG TABLET PO ONE (20:31)
[2020-11-25] MEDS: APIXABAN 5 MG TABLET PO SCH (20:32)
[2020-11-25] MEDS ORDERED: VANCOMYCIN PROTOCOL PER PHARMACY IV SCH (22:00)
[2020-11-25] MEDS: ZOSYN 3.375GM+NS 50ML 50 ML IV SCH (22:30)
[2020-11-25 23:33] VITALS: BP 152/53
[2020-11-26] VITALS (18 sets, daily range): BP systolic 104–185; BP diastolic 39–103
[2020-11-26] MEDS: MORPHINE 2 MG SYG IVP PRN ×2 (01:36→12:22)
[2020-11-26] MEDS: CHLORHEXIDINE GLUCONATE 473 ML MOUTHWASH MM SCH ×2 (01:37→07:17)
[2020-11-26 03:59] LABS: BASOPHILS % (AUTO) 0.2 % (0.0-5.0); EOSINOPHILS % (AUTO) 1.9 % (0.0-8.0); HEMATOCRIT 33.7 % (42-54); LYMPHOCYTES % (AUTO) 4.6 % (21.0-51.0); MEAN CORPUSCULAR HEMOGLOBIN 27.6 pg (27.0-33.0); MEAN CORPUSCULAR HGB CONC 31.8 g/dL (32.0-36.0); MEAN CORPUSCULAR VOLUME 86.9 fL (79-99); MONOCYTES % (AUTO) 4.2 % (3.0-13.0); NEUTROPHILS % (AUTO) 88.1 % (40.0-77.0); PLATELET COUNT (AUTO) 269 K/uL (130-400); RED BLOOD CELL COUNT(AUTO) 3.88 MIL/uL (4.50-6.20); RED CELL DISTRIBUTION WIDTH 16.4 % (11.0-15.5); WHITE BLOOD COUNT (AUTO) 12.9 K/uL (4.8-10.8)
[2020-11-26 04:24] LABS: ALBUMIN 1.3 g/dL (3.5-5.0); BILIRUBIN,TOTAL 3.6 mg/dL (0.2-1.0); CREATININE 5.5 mg/dL (0.5-1.5); TOTAL PROTEIN, SERUM 6.7 g/dL (6.0-8.3)
[2020-11-26] MEDS: INSULIN HUMULIN R 100 UNIT/ML 3ML SQ SCH ×2 (05:41→12:00)
[2020-11-26] MEDS: SODIUM HYPOCHLORITE 0.5% [FULL STRENGTH] 473 ML TOPICAL SOLN TP SCH ×2 (06:36→08:49)
[2020-11-26] MEDS: IPRATROPIUM 0.5 MG/2.5 ML INH IH SCH ×2 (06:41→12:09)
[2020-11-26] MEDS ORDERED: APIXABAN 5 MG TABLET PO ONE (07:15)
[2020-11-26] MEDS: FLUCONAZOLE 100 MG TAB PO SCH (07:17)
[2020-11-26] MEDS: APIXABAN 5 MG TABLET PO SCH (07:17)
[2020-11-26] MEDS: METOPROLOL TARTRATE 50 MG TAB PO SCH (07:17)
[2020-11-26] MEDS: CLOTRIMAZOLE/BETAMETHASONE DIP 45 GM CREAM.GM. TP SCH (07:17)
[2020-11-26] MEDS: LOSARTAN 100 MG TABLET PO SCH (07:17)
[2020-11-26] MEDS: ZOSYN 3.375GM+NS 50ML 50 ML IV SCH (09:09)
[2020-11-26] MEDS ORDERED: VANCOMYCIN 1.25GM/NS 250ML IVPB SCH ×2 (14:00)
[2020-11-26] MEDS ORDERED: 0.9%NACL 1000ML 1,000 ML IV PRN (14:30)
== END 2020-11-26 17:00 | DRG 853 ==
LOC: EDH 12:53 → EDHIP 13:51 → OBSVTOIN 13:51 → 3AH 11-12 07:24 → 2DH 11-12 12:32 → 2CH 11-14 21:17 → 4DH 11-22 17:56
PROVIDERS: ADMIT Internal Medicine Pulmonary Disease; ATTEND Internal Medicine Pulmonary Disease
PROC: 0W9B30Z Drainage of Left Pleural Cavity with Drainage Device, Percutaneous Approach (ICD-10-PCS; 2020-11-12)
PROC: 5A1955Z Respiratory Ventilation, Greater than 96 Consecutive Hours (ICD-10-PCS; 2020-11-12)
PROC: 0BH17EZ Insertion of Endotracheal Airway into Trachea, Via Natural or Artificial Opening (ICD-10-PCS; 2020-11-12)
PROC: 5A1D70Z Performance of Urinary Filtration, Intermittent, Less than 6 Hours Per Day (ICD-10-PCS; 2020-11-12)
PROC: 02HV33Z Insertion of Infusion Device into Superior Vena Cava, Percutaneous Approach (ICD-10-PCS; 2020-11-15)
PROC: 5A1D70Z Performance of Urinary Filtration, Intermittent, Less than 6 Hours Per Day (ICD-10-PCS; 2020-11-19)
PROC: 5A09357 Assistance with Respiratory Ventilation, Less than 24 Consecutive Hours, Continuous Positive Airway Pressure (ICD-10-PCS; 2020-11-20)
PROC: 5A09357 Assistance with Respiratory Ventilation, Less than 24 Consecutive Hours, Continuous Positive Airway Pressure (ICD-10-PCS; 2020-11-21)
PROC: 5A09357 Assistance with Respiratory Ventilation, Less than 24 Consecutive Hours, Continuous Positive Airway Pressure (ICD-10-PCS; 2020-11-22)
PROC: 5A1D70Z Performance of Urinary Filtration, Intermittent, Less than 6 Hours Per Day (ICD-10-PCS; 2020-11-23)
PROC: 30233K1 Transfusion of Nonautologous Frozen Plasma into Peripheral Vein, Percutaneous Approach (ICD-10-PCS; 2020-11-24)
PROC: 0KBN0ZZ Excision of Right Hip Muscle, Open Approach (ICD-10-PCS; 2020-11-24)
PROC: 0KBP0ZZ Excision of Left Hip Muscle, Open Approach (ICD-10-PCS; principal; 2020-11-24 17:46)
PROC: 5A1D70Z Performance of Urinary Filtration, Intermittent, Less than 6 Hours Per Day (ICD-10-PCS; 2020-11-26)
DX: A41.9 Sepsis, unspecified organism (principal); N18.6 End stage renal disease; I50.33 Acute on chronic diastolic (congestive) heart failure; E43 Unspecified severe protein-calorie malnutrition; I46.9 Cardiac arrest, cause unspecified; J96.01 Acute respiratory failure with hypoxia; G92 Toxic encephalopathy; E10.52 Type 1 diabetes mellitus with diabetic peripheral angiopathy with gangrene; I13.2 Hypertensive heart and chronic kidney disease with heart failure and with stage 5 chronic kidney disease, or end stage renal disease; D68.9 Coagulation defect, unspecified; I42.9 Cardiomyopathy, unspecified; I48.4 Atypical atrial flutter; I48.3 Typical atrial flutter; N49.2 Inflammatory disorders of scrotum; B37.9 Candidiasis, unspecified; R79.89 Other specified abnormal findings of blood chemistry; E78.00 Pure hypercholesterolemia, unspecified; Z99.2 Dependence on renal dialysis; G89.29 Other chronic pain; M54.9 Dorsalgia, unspecified; E10.22 Type 1 diabetes mellitus with diabetic chronic kidney disease; E10.51 Type 1 diabetes mellitus with diabetic peripheral angiopathy without gangrene; E83.59 Other disorders of calcium metabolism; I25.10 Atherosclerotic heart disease of native coronary artery without angina pectoris; Z91.15 Patient's noncompliance with renal dialysis; D64.9 Anemia, unspecified; E66.9 Obesity, unspecified; E78.5 Hyperlipidemia, unspecified; F41.9 Anxiety disorder, unspecified; E66.01 Morbid (severe) obesity due to excess calories; I48.91 Unspecified atrial fibrillation; I95.3 Hypotension of hemodialysis; L89.150 Pressure ulcer of sacral region, unstageable; L98.419 Non-pressure chronic ulcer of buttock with unspecified severity; N49.3 Fournier gangrene; Z68.33 Body mass index [BMI] 33.0-33.9, adult; Z74.01 Bed confinement status; Z79.01 Long term (current) use of anticoagulants; Z79.4 Long term (current) use of insulin; Z79.899 Other long term (current) drug therapy; Z91.14 Patient's other noncompliance with medication regimen; Z68.31 Body mass index [BMI] 31.0-31.9, adult
CPT/HCPCS: 31500; 31720; 36415; 36430; 36600; 51702; 70450; 70551; 71045; 71275; 74150; 74178; 74230; 76705; 76870; 80048; 80053; 80061; 80185; 80202; 81001; 82040; 82140; 82435; 82550; 82803; 82947; 82948; 83036; 83605; 83735; 83880; 83970; 84100; 84132; 84145; 84295; 84443; 84484; 85018; 85025; 85027; 85378; 85610; 86704; 86706; 86850; 86900; 86901; 86927; 87040; 87070; 87071; 87077; 87088; 87186; 87205; 87340; 88304; 90935; 92526; 92610; 92611; 92950; 93005; 93970; 94002; 94003; 94640; 94660; 94664; 94667; 94668; 96374; A7048; C1751; C1894; G0378; J0282; J1170; J1644; J1650; J1815; J2001; J2250; J2270; J2370; J2405; J2543; J2704; J3010; J3370; J3490; J7030; J7050; J7060; J7070; P9017; P9046; Q2009; Q9967

== ENCOUNTER 2021-01-10 15:21 | Inpatient (IN) | payer MEDICARE, OTHER ==
[~2021-01-10] VITALS: Ht 188 cm; Wt 97.8 kg
[~2021-01-10 15:21] MED LIST changes: +ONDA-105 PO; -ONDA8TAB65 PO
[2021-01-10 16:17] LABS: CREATININE 4.2 mg/dL (0.5-1.5); POTASSIUM 4.6 mmol/L (3.5-5.1)
[2021-01-10 16:23] LABS: BASOPHILS % (AUTO) 0.7 % (0.0-5.0); EOSINOPHILS % (AUTO) 3.2 % (0.0-8.0); HEMATOCRIT 25.4 % (42-54); LYMPHOCYTES % (AUTO) 14.2 % (21.0-51.0); MEAN CORPUSCULAR HEMOGLOBIN 29.1 pg (27.0-33.0); MEAN CORPUSCULAR HGB CONC 32.7 g/dL (32.0-36.0); MEAN CORPUSCULAR VOLUME 89.1 fL (79-99); NEUTROPHILS % (AUTO) 72.6 % (40.0-77.0); PLATELET COUNT (AUTO) 279 K/uL (130-400); RED BLOOD CELL COUNT(AUTO) 2.85 MIL/uL (4.50-6.20); RED CELL DISTRIBUTION WIDTH 16.2 % (11.0-15.5); WHITE BLOOD COUNT (AUTO) 9.6 K/uL (4.8-10.8)
[2021-01-10 16:23] LABS: ALBUMIN 1.6 g/dL (3.5-5.0); BILIRUBIN,TOTAL 0.7 mg/dL (0.2-1.0); CRP QUANTITATIVE 127.3 mg/L (0.00-9.0); TOTAL PROTEIN, SERUM 6.8 g/dL (6.0-8.3)
[2021-01-10] MEDS ORDERED: MAG/ALUM/SIMETH 30 ML UDCUP PO PRN (18:30)
[2021-01-10] MEDS ORDERED: ACETAMINOPHEN 325 MG TAB PO PRN ×2 (18:30→19:00)
[2021-01-10] MEDS ORDERED: ZOLPIDEM TARTRATE 5 MG TAB PO PRN (18:30)
[2021-01-10] MEDS ORDERED: NITROGLYCERIN 0.4 MG SL TAB SL PRN (18:30)
[2021-01-10] MEDS ORDERED: LACTULOSE 20 GM/30 ML UDCUP PO PRN ×2 (18:30→19:00)
[2021-01-10] MEDS ORDERED: GUAIFENESIN-DM 200/20 MG 10 ML PO PRN (18:30)
[2021-01-10] MEDS ORDERED: HYDROCODONE/ACETAMINOPHEN 5/325 MG TAB PO PRN (18:30)
[2021-01-10] MEDS ORDERED: GLUCAGON 1MG KIT 1 MG ML IM PRN (19:00)
[2021-01-10] MEDS ORDERED: TEMAZEPAM 15 MG CAPSULE PO PRN (19:00)
[2021-01-10] MEDS ORDERED: CLONIDINE HCL 0.1 MG TABLET PO PRN (19:00)
[2021-01-10] MEDS ORDERED: MORPHINE 2 MG SYG IVP PRN (19:00)
[2021-01-10] MEDS ORDERED: ACETAMINOPHEN 650 MG SUPPOSITORY RC PRN (19:00)
[2021-01-10] MEDS ORDERED: TRAMADOL HCL 50 MG TABLET PO PRN (19:00)
[2021-01-10] MEDS ORDERED: ONDANSETRON 4MG INJ IVP PRN (19:00)
[2021-01-10] MEDS ORDERED: ACET325T51 PO (19:04)
[2021-01-10] MEDS ORDERED: VITS42.53 TP (19:04)
[2021-01-10] MEDS ORDERED: AMIO200T68 PO (19:04)
[2021-01-10] MEDS ORDERED: ASCO500T10 PO (19:04)
[2021-01-10] MEDS ORDERED: DEXTROSE 50%-WATER 50 ML DISP.SYRIN IV ONE (20:34)
[2021-01-10] MEDS ORDERED: NALOXONE HCL 0.4 MG/1 ML ML IVP ONE (20:34)
[2021-01-10] MEDS ORDERED: METOPROLOL TARTRATE 50 MG TAB PO SCH (21:00)
[2021-01-10] MEDS ORDERED: INSULIN HUMULIN R 100 UNIT/ML 3ML SQ SCH (21:00)
[2021-01-10] MEDS: MORPHINE 2 MG SYG IV PRN (21:00)
[2021-01-10 23:50] VITALS: BP 112/35
[2021-01-11] VITALS (19 sets, daily range): BP systolic 99–166; BP diastolic 36–89
[2021-01-11 00:07] LABS: INR 1.13 (0.85-1.15); PARTIAL THROMBOPLASTIN TIME 34.6 SEC (26.3-35.5); PROTHROMBIN TIME 12.2 SEC (9.6-11.6)
[2021-01-11] MEDS: MORPHINE 2 MG SYG IV PRN ×4 (01:18→22:14)
[2021-01-11] MEDS ORDERED: TRAM50TA4 PO (05:19)
[2021-01-11] MEDS ORDERED: FERS325 PO (05:19)
[2021-01-11] MEDS ORDERED: TRAZ-185 PO (05:19)
[2021-01-11] MEDS ORDERED: DOCU-116 PO (05:19)
[2021-01-11] MEDS ORDERED: DAKINS.5S MISC (05:19)
[2021-01-11] MEDS ORDERED: CHLO118L5 TP (05:19)
[2021-01-11] MEDS ORDERED: LACT10SO9 PO (05:19)
[2021-01-11] MEDS ORDERED: PARO-37 PO (05:19)
[2021-01-11] MEDS ORDERED: HYDR-3421 PO (05:19)
[2021-01-11] MEDS ORDERED: ZINC220C6 PO (05:19)
[2021-01-11] MEDS ORDERED: LOSA50TA64 PO (05:19)
[2021-01-11] MEDS ORDERED: AMIN887L14 PO (05:19)
[2021-01-11] MEDS ORDERED: FOLI1TAB61 PO (05:19)
[2021-01-11] MEDS ORDERED: QUET25TA PO (05:19)
[2021-01-11] MEDS ORDERED: GABA-533 PO (05:19)
[2021-01-11] MEDS ORDERED: COLL1POW2 MC (05:19)
[2021-01-11 05:44] LABS: BASOPHILS % (AUTO) 0.6 % (0.0-5.0); EOSINOPHILS % (AUTO) 3.6 % (0.0-8.0); LYMPHOCYTES % (AUTO) 14.3 % (21.0-51.0); MEAN CORPUSCULAR VOLUME 90.6 fL (79-99); MONOCYTES % (AUTO) 9.5 % (3.0-13.0); NEUTROPHILS % (AUTO) 71.5 % (40.0-77.0); PLATELET COUNT (AUTO) 264 K/uL (130-400); RED BLOOD CELL COUNT(AUTO) 2.76 MIL/uL (4.50-6.20); RED CELL DISTRIBUTION WIDTH 16.1 % (11.0-15.5); WHITE BLOOD COUNT (AUTO) 9.6 K/uL (4.8-10.8)
[2021-01-11 05:58] LABS: ALBUMIN 1.5 g/dL (3.5-5.0); BILIRUBIN,TOTAL 0.7 mg/dL (0.2-1.0); CREATININE 4.5 mg/dL (0.5-1.5); POTASSIUM 4.6 mmol/L (3.5-5.1); TOTAL PROTEIN, SERUM 6.7 g/dL (6.0-8.3)
[2021-01-11] MEDS ORDERED: ENOXAPARIN SODIUM 30 MG/0.3 ML SQ SCH (09:00)
[2021-01-11] MEDS: LOSARTAN 100 MG TABLET PO SCH (09:00)
[2021-01-11] MEDS ORDERED: ENOXAPARIN SODIUM 40 MG/0.4 ML SYRINGE SQ SCH (09:00)
[2021-01-11] MEDS ORDERED: POLYETHYLENE GLYCOL 3350 17 GM POWD.PACK PO SCH (09:00)
[2021-01-11] MEDS ORDERED: APIXABAN 5 MG TABLET PO SCH (09:00)
[2021-01-11] MEDS ORDERED: ASPIRIN 81MG CHEW TAB PO SCH (09:00)
[2021-01-11] MEDS ORDERED: PANTOPRAZOLE 40 MG TAB DR PO SCH (09:00)
[2021-01-11] MEDS: FAMOTIDINE 20MG VIAL IV SCH (10:10)
[2021-01-11] MEDS: FERROUS SULFATE 325 MG TABLET.DR PO SCH ×3 (10:10→21:15)
[2021-01-11] MEDS: AMIODARONE 200 MG TABLET PO SCH ×2 (10:10→21:00)
[2021-01-11] MEDS ORDERED: VANCOMYCIN PROTOCOL PER PHARMACY IV SCH (16:30)
[2021-01-11] MEDS ORDERED: VANCOMYCIN 1G VIAL IVPB ONE (16:30)
[2021-01-11] MEDS: MEROPENEM 500 MG VIAL IVP SCH (16:30)
[2021-01-11] MEDS ORDERED: VANCOMYCIN 2GM/500ML NS IV ONE ×2 (17:00)
[2021-01-11] MEDS ORDERED: 0.9%NACL 1000ML 1,000 ML IV PRN (18:00)
[2021-01-11] MEDS: ACETAMINOPHEN 325 MG TAB PO PRN (21:16)
[2021-01-12] VITALS: BP 101/42
[2021-01-12] MEDS: HEPARIN 5,000 UNIT VIAL SQ SCH ×4 (00:06→22:01)
[2021-01-12] MEDS: MORPHINE 2 MG SYG IV PRN ×3 (03:53→20:20)
[2021-01-12] MEDS: ONDANSETRON 4MG INJ IV PRN (03:53)
[2021-01-12 04:00] VITALS: BP 102/53
[2021-01-12 05:56] LABS: BASOPHILS % (AUTO) 0.7 % (0.0-5.0); EOSINOPHILS % (AUTO) 2.3 % (0.0-8.0); HEMATOCRIT 24.4 % (42-54); LYMPHOCYTES % (AUTO) 9.1 % (21.0-51.0); MEAN CORPUSCULAR HEMOGLOBIN 28.9 pg (27.0-33.0); MEAN CORPUSCULAR HGB CONC 31.6 g/dL (32.0-36.0); MEAN CORPUSCULAR VOLUME 91.7 fL (79-99); NEUTROPHILS % (AUTO) 80.4 % (40.0-77.0); PLATELET COUNT (AUTO) 267 K/uL (130-400); RED BLOOD CELL COUNT(AUTO) 2.66 MIL/uL (4.50-6.20); RED CELL DISTRIBUTION WIDTH 15.9 % (11.0-15.5); WHITE BLOOD COUNT (AUTO) 10.4 K/uL (4.8-10.8)
[2021-01-12] MEDS ORDERED: HONEY 1 APPL/ML TUBE TP SCH (06:00)
[2021-01-12 06:39] LABS: ALBUMIN 1.4 g/dL (3.5-5.0); BILIRUBIN,TOTAL 0.8 mg/dL (0.2-1.0); CREATININE 3.5 mg/dL (0.5-1.5); POTASSIUM 4.1 mmol/L (3.5-5.1); TOTAL PROTEIN, SERUM 6.6 g/dL (6.0-8.3)
[2021-01-12 08:00] VITALS: BP 118/35
[2021-01-12] MEDS: MEROPENEM 500 MG VIAL IVP SCH ×4 (08:52→23:18)
[2021-01-12] MEDS: AMIODARONE 200 MG TABLET PO SCH ×2 (09:55→20:00)
[2021-01-12] MEDS: FERROUS SULFATE 325 MG TABLET.DR PO SCH ×3 (09:55→19:59)
[2021-01-12] MEDS: LOSARTAN 100 MG TABLET PO SCH (09:55)
[2021-01-12] MEDS: FAMOTIDINE 20MG VIAL IV SCH (09:55)
[2021-01-12 12:00] VITALS: BP 98/36
[2021-01-12 16:00] VITALS: BP 120/26
[2021-01-12] MEDS: GABAPENTIN 300 MG CAPSULE PO SCH ×2 (16:50→20:00)
[2021-01-12] MEDS ORDERED: VANCOMYCIN 500MG+NS 100ML IVPB IV SCH (17:00)
[2021-01-12] MEDS ORDERED: 0.9%NACL 100ML 100 ML IV SCH (17:00)
[2021-01-12 20:00] VITALS: BP 144/46
[2021-01-13] VITALS: BP 128/52
[2021-01-13 04:00] VITALS: BP 125/50
[2021-01-13] MEDS: FERROUS SULFATE 325 MG TABLET.DR PO SCH ×3 (09:03→20:29)
[2021-01-13] MEDS: MEROPENEM 500 MG VIAL IVP SCH ×2 (09:03→16:26)
[2021-01-13] MEDS: FAMOTIDINE 20MG VIAL IV SCH (09:03)
[2021-01-13] MEDS: AMIODARONE 200 MG TABLET PO SCH ×2 (09:03→20:29)
[2021-01-13] MEDS: GABAPENTIN 300 MG CAPSULE PO SCH ×3 (09:03→20:29)
[2021-01-13] MEDS: LOSARTAN 100 MG TABLET PO SCH (09:03)
[2021-01-13 09:09] LABS: HEPATITIS Bs ANTIGEN SCREEN P Negative (Negative)
[2021-01-13 09:12] VITALS: BP 125/27
[2021-01-13] MEDS: MORPHINE 2 MG SYG IV PRN ×3 (10:27→20:40)
[2021-01-13 11:18] LABS: CREATININE 4.6 mg/dL (0.5-1.5); POTASSIUM 4.6 mmol/L (3.5-5.1)
[2021-01-13 11:29] VITALS: BP 122/35
[2021-01-13] MEDS: HEPARIN 5,000 UNIT VIAL SQ SCH ×2 (11:41→23:00)
[2021-01-13 16:40] VITALS: BP 149/54
[2021-01-13] MEDS ORDERED: VANCOMYCIN 500MG+NS 100ML IVPB IV SCH (17:00)
[2021-01-13 20:00] VITALS: BP 150/42
[2021-01-14] VITALS (24 sets, daily range): BP systolic 91–186; BP diastolic 34–75
[2021-01-14] MEDS: MEROPENEM 500 MG VIAL IVP SCH ×4 (02:06→23:59)
[2021-01-14 04:30] LABS: HEMATOCRIT 23.7 % (42-54); MEAN CORPUSCULAR HEMOGLOBIN 29.3 pg (27.0-33.0); MEAN CORPUSCULAR HGB CONC 32.9 g/dL (32.0-36.0); MEAN CORPUSCULAR VOLUME 89.1 fL (79-99); RED BLOOD CELL COUNT(AUTO) 2.66 MIL/uL (4.50-6.20); RED CELL DISTRIBUTION WIDTH 15.6 % (11.0-15.5); WHITE BLOOD COUNT (AUTO) 7.7 K/uL (4.8-10.8)
[2021-01-14 04:41] LABS: INR 1.05 (0.85-1.15); PROTHROMBIN TIME 11.4 SEC (9.6-11.6)
[2021-01-14 04:43] LABS: PARTIAL THROMBOPLASTIN TIME 32.8 SEC (26.3-35.5)
[2021-01-14 04:56] LABS: ABG BASE EXCESS 1.7 mmol/L (-2.0-3.0); ABG HCO3 26.2 mmol/L (21.0-28.0); ABG OXYGEN SATURATION 93.9 % (95.0-99.0); ABG PCO2 41 mmHg (35-48)
[2021-01-14 04:58] LABS: CREATININE 5.1 mg/dL (0.5-1.5); POTASSIUM 4.5 mmol/L (3.5-5.1)
[2021-01-14] MEDS: MORPHINE 2 MG SYG IV PRN ×3 (05:43→22:10)
[2021-01-14] MEDS ORDERED: 0.9%NACL 100ML 100 ML IV SCH (09:00)
[2021-01-14] MEDS ORDERED: VANCOMYCIN 500MG+NS 100ML IVPB IV SCH (09:00)
[2021-01-14] MEDS: HEPARIN 5,000 UNIT VIAL SQ SCH ×2 (09:09→23:54)
[2021-01-14] MEDS: AMIODARONE 200 MG TABLET PO SCH ×2 (09:25→21:01)
[2021-01-14] MEDS: LOSARTAN 100 MG TABLET PO SCH (09:25)
[2021-01-14] MEDS: FAMOTIDINE 20MG VIAL IV SCH (09:25)
[2021-01-14] MEDS: FERROUS SULFATE 325 MG TABLET.DR PO SCH ×3 (09:25→21:01)
[2021-01-14] MEDS: GABAPENTIN 300 MG CAPSULE PO SCH ×3 (09:26→21:01)
[2021-01-14] MEDS: ONDANSETRON 4MG INJ IV PRN (15:44)
[2021-01-14] MEDS: SODIUM HYPOCHLORITE 0.125% 473 ML SOLUTION TP SCH (21:00)
[2021-01-15] MEDS: ONDANSETRON 4MG INJ IV PRN (04:07)
[2021-01-15 04:19] VITALS: BP 127/53
[2021-01-15 04:32] LABS: MEAN CORPUSCULAR HEMOGLOBIN 28.3 pg (27.0-33.0); MEAN CORPUSCULAR HGB CONC 32.4 g/dL (32.0-36.0); MEAN CORPUSCULAR VOLUME 87.4 fL (79-99); PLATELET COUNT (AUTO) 258 K/uL (130-400); RED BLOOD CELL COUNT(AUTO) 2.86 MIL/uL (4.50-6.20); RED CELL DISTRIBUTION WIDTH 15.2 % (11.0-15.5); WHITE BLOOD COUNT (AUTO) 6.9 K/uL (4.8-10.8)
[2021-01-15 05:00] LABS: BAND NEUTROPHILS % (MANUAL) 24 % (0-2); BASOPHILS % (MANUAL) 2 % (0-2); LYMPHOCYTES % (MANUAL) 4 % (22-44); MAN.DIFF COMMENT-IMPRESSION MANUAL DIFFERENTIAL; MONOCYTES % (MANUAL) 7 % (2-9); SEGMENTED NEUTROPHILS % 63 % (40-70)
[2021-01-15 05:02] LABS: PLATELET MORPHOLOGY COMMENT ADEQUATE
[2021-01-15 05:04] LABS: ALBUMIN 1.4 g/dL (3.5-5.0); BILIRUBIN,TOTAL 0.6 mg/dL (0.2-1.0); CREATININE 3.9 mg/dL (0.5-1.5); TOTAL PROTEIN, SERUM 6.7 g/dL (6.0-8.3)
[2021-01-15 08:00] VITALS: BP 149/61
[2021-01-15] MEDS: MORPHINE 2 MG SYG IV PRN ×3 (09:41→19:05)
[2021-01-15] MEDS: FERROUS SULFATE 325 MG TABLET.DR PO SCH ×3 (09:56→20:38)
[2021-01-15] MEDS: MEROPENEM 500 MG VIAL IVP SCH ×2 (09:56→17:01)
[2021-01-15] MEDS: GABAPENTIN 300 MG CAPSULE PO SCH ×3 (09:56→20:38)
[2021-01-15] MEDS: SODIUM HYPOCHLORITE 0.125% 473 ML SOLUTION TP SCH ×3 (10:07→20:39)
[2021-01-15] MEDS: FAMOTIDINE 20MG VIAL IV SCH (10:25)
[2021-01-15] MEDS ORDERED: REGADENOSON 0.4 MG/5 ML PF SYG IVP SCH (11:00)
[2021-01-15] MEDS: LOSARTAN 100 MG TABLET PO SCH (11:52)
[2021-01-15] MEDS: AMIODARONE 200 MG TABLET PO SCH ×2 (11:52→20:38)
[2021-01-15] MEDS: HYDRALAZINE HCL 10 MG TABLET PO PRN (12:31)
[2021-01-15] MEDS: HEPARIN 5,000 UNIT VIAL SQ SCH ×2 (14:05→23:11)
[2021-01-15 19:41] VITALS: BP 143/61
[2021-01-15 23:37] VITALS: BP 140/47
[2021-01-16] VITALS (22 sets, daily range): BP systolic 110–192; BP diastolic 42–103
[2021-01-16] MEDS: MEROPENEM 500 MG VIAL IVP SCH ×3 (00:37→17:48)
[2021-01-16] MEDS: HYDRALAZINE HCL 10 MG TABLET PO PRN (04:11)
[2021-01-16] MEDS: ACETAMINOPHEN 325 MG TAB PO PRN (04:14)
[2021-01-16 04:29] LABS: BASOPHILS % (AUTO) 0.6 % (0.0-5.0); EOSINOPHILS % (AUTO) 2.5 % (0.0-8.0); HEMATOCRIT 27.3 % (42-54); LYMPHOCYTES % (AUTO) 12.6 % (21.0-51.0); MEAN CORPUSCULAR HEMOGLOBIN 29.1 pg (27.0-33.0); MEAN CORPUSCULAR HGB CONC 33.3 g/dL (32.0-36.0); MEAN CORPUSCULAR VOLUME 87.2 fL (79-99); MONOCYTES % (AUTO) 7.5 % (3.0-13.0); NEUTROPHILS % (AUTO) 76.4 % (40.0-77.0); PLATELET COUNT (AUTO) 276 K/uL (130-400); RED BLOOD CELL COUNT(AUTO) 3.13 MIL/uL (4.50-6.20); RED CELL DISTRIBUTION WIDTH 15.1 % (11.0-15.5); WHITE BLOOD COUNT (AUTO) 7.1 K/uL (4.8-10.8)
[2021-01-16 05:03] LABS: CREATININE 4.6 mg/dL (0.5-1.5); MAGNESIUM 1.9 mg/dL (1.80-2.40); PHOSPHORUS 3.7 mg/dL (2.5-4.9); POTASSIUM 4.4 mmol/L (3.5-5.1)
[2021-01-16] MEDS: AMIODARONE 200 MG TABLET PO SCH ×2 (09:00→20:50)
[2021-01-16] MEDS: LOSARTAN 100 MG TABLET PO SCH (09:00)
[2021-01-16] MEDS ORDERED: VANCOMYCIN 500MG+NS 100ML IVPB IV SCH (09:00)
[2021-01-16] MEDS: HEPARIN 5,000 UNIT VIAL SQ SCH ×2 (11:58→23:49)
[2021-01-16] MEDS: FAMOTIDINE 20MG VIAL IV SCH (11:59)
[2021-01-16] MEDS: FERROUS SULFATE 325 MG TABLET.DR PO SCH ×3 (12:00→20:50)
[2021-01-16] MEDS: GABAPENTIN 300 MG CAPSULE PO SCH ×3 (12:00→20:51)
[2021-01-16] MEDS: SODIUM HYPOCHLORITE 0.125% 473 ML SOLUTION TP SCH ×3 (12:16→21:50)
[2021-01-16] MEDS: MORPHINE 2 MG SYG IVP PRN ×2 (13:03→20:51)
[2021-01-16] MEDS: VANCOMYCIN 500MG+NS 100ML IVPB IV SCH (17:48)
[2021-01-17] VITALS (23 sets, daily range): BP systolic 107–148; BP diastolic 51–74
[2021-01-17] MEDS: MEROPENEM 500 MG VIAL IVP SCH ×3 (01:11→18:15)
[2021-01-17 04:43] LABS: HEMATOCRIT 23.8 % (42-54); MEAN CORPUSCULAR HEMOGLOBIN 28.8 pg (27.0-33.0); MEAN CORPUSCULAR HGB CONC 32.8 g/dL (32.0-36.0); MEAN CORPUSCULAR VOLUME 87.8 fL (79-99); RED BLOOD CELL COUNT(AUTO) 2.71 MIL/uL (4.50-6.20); RED CELL DISTRIBUTION WIDTH 15.2 % (11.0-15.5); WHITE BLOOD COUNT (AUTO) 7.5 K/uL (4.8-10.8)
[2021-01-17 04:56] LABS: CREATININE 3.5 mg/dL (0.5-1.5); POTASSIUM 3.8 mmol/L (3.5-5.1)
[2021-01-17] MEDS: MORPHINE 2 MG SYG IVP PRN ×2 (09:15→18:09)
[2021-01-17] MEDS: FAMOTIDINE 20MG VIAL IV SCH (09:21)
[2021-01-17] MEDS: GABAPENTIN 300 MG CAPSULE PO SCH ×3 (09:22→21:51)
[2021-01-17] MEDS: FERROUS SULFATE 325 MG TABLET.DR PO SCH ×3 (09:22→21:50)
[2021-01-17] MEDS: LOSARTAN 100 MG TABLET PO SCH (09:22)
[2021-01-17] MEDS: AMIODARONE 200 MG TABLET PO SCH ×2 (09:22→21:51)
[2021-01-17] MEDS: SODIUM HYPOCHLORITE 0.125% 473 ML SOLUTION TP SCH ×3 (09:23→21:00)
[2021-01-17] MEDS: HEPARIN 5,000 UNIT VIAL SQ SCH (11:00)
[2021-01-17] MEDS ORDERED: 0.9% NACL 500ML IV.SOLN 500 ML IV ONE (12:58)
[2021-01-17] MEDS ORDERED: LIDOCAINE PF 100MG/5ML (2%) SYRINGE 5ML ONE (13:28)
[2021-01-17] MEDS ORDERED: PROPOFOL 10 MG/ML 20ML VIAL IV ONE (13:28)
[2021-01-17] MEDS ORDERED: ROCURONIUM 10MG/1ML SYR 10 MG/ML ML ONE (13:28)
[2021-01-17] MEDS ORDERED: FENTANYL CITRATE PF 50 MCG/1 ML 2ML VIAL ONE ×3 (13:29→16:40)
[2021-01-17] MEDS ORDERED: CEFAZOLIN SODIUM 1 GM VIAL ONE (13:41)
[2021-01-17] MEDS ORDERED: BUPIVACAINE/PF 0.25% 30ML VIAL IJ ONE (13:46)
[2021-01-17] MEDS ORDERED: NOREPINEPHRINE BITARTRATE 1 MG/1 ML ML IV ONE (14:16)
[2021-01-17] MEDS ORDERED: LIDOCAINE 1%-EPI 1:100,000 20 ML VIAL IJ ONE (14:29)
[2021-01-17] MEDS: VANCOMYCIN 500MG+NS 100ML IVPB IV SCH (15:00)
[2021-01-17] MEDS ORDERED: ONDANSETRON 4MG INJ ONE ×2 (15:02→17:33)
[2021-01-17] MEDS ORDERED: GLYCOPYRROLATE 1 MG/5 ML SYRINGE ONE (16:39)
[2021-01-17] MEDS ORDERED: NEOSTIGMINE 5MG/5ML SYR IV ONE (16:39)
[2021-01-18] VITALS (20 sets, daily range): BP systolic 102–156; BP diastolic 30–96
[2021-01-18] MEDS: MEROPENEM 500 MG VIAL IVP SCH ×3 (00:39→16:24)
[2021-01-18] MEDS: HEPARIN 5,000 UNIT VIAL SQ SCH ×3 (00:40→20:00)
[2021-01-18] MEDS: MORPHINE 2 MG SYG IVP PRN ×5 (00:42→20:52)
[2021-01-18 05:39] LABS: HEMATOCRIT 24.2 % (42-54); MEAN CORPUSCULAR HEMOGLOBIN 28.6 pg (27.0-33.0); MEAN CORPUSCULAR HGB CONC 32.6 g/dL (32.0-36.0); MEAN CORPUSCULAR VOLUME 87.7 fL (79-99); RED BLOOD CELL COUNT(AUTO) 2.76 MIL/uL (4.50-6.20); RED CELL DISTRIBUTION WIDTH 15.4 % (11.0-15.5); WHITE BLOOD COUNT (AUTO) 9.2 K/uL (4.8-10.8)
[2021-01-18 05:53] LABS: ALBUMIN 1.4 g/dL (3.5-5.0); BILIRUBIN,TOTAL 0.6 mg/dL (0.2-1.0); CREATININE 4.2 mg/dL (0.5-1.5); TOTAL PROTEIN, SERUM 6.4 g/dL (6.0-8.3)
[2021-01-18] MEDS: AMIODARONE 200 MG TABLET PO SCH ×2 (09:00→19:53)
[2021-01-18] MEDS: LOSARTAN 100 MG TABLET PO SCH (09:00)
[2021-01-18] MEDS: FERROUS SULFATE 325 MG TABLET.DR PO SCH ×3 (09:01→19:53)
[2021-01-18] MEDS: FAMOTIDINE 20MG VIAL IV SCH (09:01)
[2021-01-18] MEDS: GABAPENTIN 300 MG CAPSULE PO SCH ×3 (09:01→19:53)
[2021-01-18] MEDS: SODIUM HYPOCHLORITE 0.125% 473 ML SOLUTION TP SCH ×3 (09:22→19:53)
[2021-01-18] MEDS: VANCOMYCIN 500MG+NS 100ML IVPB IV SCH (15:20)
[2021-01-18] MEDS ORDERED: KETOROLAC 30MG VIAL (30MG/ML) ONE (20:49)
[2021-01-18] MEDS ORDERED: KETOROLAC 30MG VIAL (30MG/ML) IV ONE (21:00)
[2021-01-18] MEDS: ZOLPIDEM TARTRATE 5 MG TAB PO SCH (21:09)
[2021-01-19] MEDS: MEROPENEM 500 MG VIAL IVP SCH ×4 (00:36→23:00)
[2021-01-19 03:58] VITALS: BP 134/43
[2021-01-19 04:01] LABS: BASOPHILS % (AUTO) 0.2 % (0.0-5.0); EOSINOPHILS % (AUTO) 3.2 % (0.0-8.0); HEMATOCRIT 23.8 % (42-54); LYMPHOCYTES % (AUTO) 16.8 % (21.0-51.0); MEAN CORPUSCULAR HEMOGLOBIN 28.3 pg (27.0-33.0); MEAN CORPUSCULAR HGB CONC 31.9 g/dL (32.0-36.0); MEAN CORPUSCULAR VOLUME 88.5 fL (79-99); MONOCYTES % (AUTO) 8.7 % (3.0-13.0); NEUTROPHILS % (AUTO) 70.9 % (40.0-77.0); PLATELET COUNT (AUTO) 209 K/uL (130-400); RED BLOOD CELL COUNT(AUTO) 2.69 MIL/uL (4.50-6.20); RED CELL DISTRIBUTION WIDTH 15.1 % (11.0-15.5); WHITE BLOOD COUNT (AUTO) 8.8 K/uL (4.8-10.8)
[2021-01-19 04:10] LABS: CREATININE 3.3 mg/dL (0.5-1.5); POTASSIUM 3.3 mmol/L (3.5-5.1)
[2021-01-19] MEDS ORDERED: DEXTROSE 50%-WATER 50 ML DISP.SYRIN IV PRN (05:30)
[2021-01-19] MEDS ORDERED: GLUCAGON 1MG KIT 1 MG ML IM PRN (05:30)
[2021-01-19] MEDS: DEXTROSE 50%-WATER 50 ML DISP.SYRIN IV PRN (05:31)
[2021-01-19 07:00] VITALS: BP 130/42
[2021-01-19] MEDS: LOSARTAN 100 MG TABLET PO SCH (09:42)
[2021-01-19] MEDS: FAMOTIDINE 20MG VIAL IV SCH (09:42)
[2021-01-19] MEDS: GABAPENTIN 300 MG CAPSULE PO SCH ×3 (09:42→21:38)
[2021-01-19] MEDS: AMIODARONE 200 MG TABLET PO SCH ×2 (09:42→21:38)
[2021-01-19] MEDS: FERROUS SULFATE 325 MG TABLET.DR PO SCH ×3 (09:42→21:39)
[2021-01-19 11:00] VITALS: BP_SYST 136; BP_SYST 148; BP_DIAS 65; BP_DIAS 69
[2021-01-19] MEDS: HEPARIN 5,000 UNIT VIAL SQ SCH ×2 (11:00→22:54)
[2021-01-19] MEDS: HYDROMORPHONE 0.5 MG SYG (0.5MG/0.5ML) IVP PRN ×2 (14:42→22:51)
[2021-01-19] MEDS: VANCOMYCIN 500MG+NS 100ML IVPB IV SCH (15:00)
[2021-01-19 16:00] VITALS: BP 159/56
[2021-01-19 20:18] VITALS: BP 134/50
[2021-01-19] MEDS: ZOLPIDEM TARTRATE 5 MG TAB PO SCH (21:39)
[2021-01-20] VITALS (7 sets, daily range): BP systolic 101–123; BP diastolic 29–93
[2021-01-20] MEDS: DEXTROSE 50%-WATER 50 ML DISP.SYRIN IV PRN (05:19)
[2021-01-20] MEDS: HYDROMORPHONE 0.5 MG SYG (0.5MG/0.5ML) IVP PRN ×3 (05:31→18:16)
[2021-01-20] MEDS: GABAPENTIN 300 MG CAPSULE PO SCH ×3 (09:51→21:35)
[2021-01-20] MEDS: MEROPENEM 500 MG VIAL IVP SCH ×2 (09:51→17:17)
[2021-01-20] MEDS: FAMOTIDINE 20MG VIAL IV SCH (09:51)
[2021-01-20] MEDS: LOSARTAN 100 MG TABLET PO SCH (09:51)
[2021-01-20] MEDS: FERROUS SULFATE 325 MG TABLET.DR PO SCH ×3 (09:51→21:35)
[2021-01-20] MEDS: AMIODARONE 200 MG TABLET PO SCH ×2 (09:51→21:35)
[2021-01-20] MEDS: HEPARIN 5,000 UNIT VIAL SQ SCH (10:04)
[2021-01-20] MEDS: VANCOMYCIN 500MG+NS 100ML IVPB IV SCH (15:00)
[2021-01-20] MEDS: ZOLPIDEM TARTRATE 5 MG TAB PO SCH (21:35)
[2021-01-21] VITALS (18 sets, daily range): BP systolic 84–158; BP diastolic 37–81
[2021-01-21] MEDS: MEROPENEM 500 MG VIAL IVP SCH ×3 (00:21→18:43)
[2021-01-21] MEDS: HYDROMORPHONE 0.5 MG SYG (0.5MG/0.5ML) IVP PRN ×3 (00:22→16:43)
[2021-01-21] MEDS: HEPARIN 5,000 UNIT VIAL SQ SCH ×3 (00:31→21:21)
[2021-01-21 04:47] LABS: HEMATOCRIT 24.1 % (42-54); MEAN CORPUSCULAR HEMOGLOBIN 28.2 pg (27.0-33.0); MEAN CORPUSCULAR HGB CONC 32.4 g/dL (32.0-36.0); PLATELET COUNT (AUTO) 239 K/uL (130-400); RED BLOOD CELL COUNT(AUTO) 2.77 MIL/uL (4.50-6.20); RED CELL DISTRIBUTION WIDTH 14.6 % (11.0-15.5); WHITE BLOOD COUNT (AUTO) 11.9 K/uL (4.8-10.8)
[2021-01-21 04:56] LABS: CREATININE 4.9 mg/dL (0.5-1.5); POTASSIUM 3.6 mmol/L (3.5-5.1)
[2021-01-21 05:24] LABS: EOSINOPHILS % (MANUAL) 4 % (1-6); LYMPHOCYTES % (MANUAL) 13 % (22-44); MONOCYTES % (MANUAL) 5 % (2-9); SEGMENTED NEUTROPHILS % 78 % (40-70)
[2021-01-21 05:25] LABS: MAN.DIFF COMMENT-IMPRESSION MANUAL DIFFERENTIAL
[2021-01-21 05:26] LABS: PLATELET MORPHOLOGY COMMENT ADEQUATE
[2021-01-21] MEDS: LOSARTAN 100 MG TABLET PO SCH (09:51)
[2021-01-21] MEDS: FAMOTIDINE 20MG VIAL IV SCH (09:51)
[2021-01-21] MEDS: GABAPENTIN 300 MG CAPSULE PO SCH ×3 (09:51→21:09)
[2021-01-21] MEDS: FERROUS SULFATE 325 MG TABLET.DR PO SCH ×3 (09:51→21:09)
[2021-01-21] MEDS: AMIODARONE 200 MG TABLET PO SCH ×2 (09:51→21:00)
[2021-01-21] MEDS: VANCOMYCIN 500MG+NS 100ML IVPB IV SCH (18:43)
[2021-01-21] MEDS ORDERED: NALOXONE HCL 0.4 MG/1 ML ML ONE (20:27)
[2021-01-21] MEDS ORDERED: NALOXONE HCL 0.4 MG/1 ML ML IVP SCH (20:30)
[2021-01-21 20:33] LABS: ABG BASE EXCESS 2.1 mmol/L (-2.0-3.0); ABG HCO3 26.2 mmol/L (21.0-28.0); ABG PCO2 39 mmHg (35-48)
[2021-01-21 20:44] LABS: HEMATOCRIT 25.2 % (42-54); MEAN CORPUSCULAR HEMOGLOBIN 28.4 pg (27.0-33.0); MEAN CORPUSCULAR HGB CONC 32.5 g/dL (32.0-36.0); MEAN CORPUSCULAR VOLUME 87.2 fL (79-99); PLATELET COUNT (AUTO) 282 K/uL (130-400); RED BLOOD CELL COUNT(AUTO) 2.89 MIL/uL (4.50-6.20); RED CELL DISTRIBUTION WIDTH 14.6 % (11.0-15.5)
[2021-01-21] MEDS: ZOLPIDEM TARTRATE 5 MG TAB PO SCH (21:00)
[2021-01-21 21:05] LABS: BAND NEUTROPHILS % (MANUAL) 3 % (0-2); EOSINOPHILS % (MANUAL) 2 % (1-6); INR 1.1 (0.85-1.15); LYMPHOCYTES % (MANUAL) 8 % (22-44); MAN.DIFF COMMENT-IMPRESSION MANUAL DIFFERENTIAL; MONOCYTES % (MANUAL) 6 % (2-9); PROTHROMBIN TIME 11.9 SEC (9.6-11.6); REACTIVE LYMPHOCYTES 1 % (0-0); SEGMENTED NEUTROPHILS % 80 % (40-70)
[2021-01-21 21:07] LABS: PARTIAL THROMBOPLASTIN TIME 33.6 SEC (26.3-35.5); PLATELET MORPHOLOGY COMMENT LARGE PLTS PRESENT
[2021-01-21 21:22] LABS: ALBUMIN 1.4 g/dL (3.5-5.0); BILIRUBIN,TOTAL 0.8 mg/dL (0.2-1.0); CREATININE 3.4 mg/dL (0.5-1.5); MAGNESIUM 1.8 mg/dL (1.80-2.40); POTASSIUM 3.6 mmol/L (3.5-5.1)
[2021-01-21 21:29] LABS: CRP QUANTITATIVE 256.4 mg/L (0.00-9.0)
[2021-01-22] VITALS: BP 120/30
[2021-01-22] MEDS: MEROPENEM 500 MG VIAL IVP SCH ×3 (03:37→16:19)
[2021-01-22 04:00] VITALS: BP_SYST 129; BP_SYST 157; BP_DIAS 37; BP_DIAS 72
[2021-01-22] MEDS: AMIODARONE 200 MG TABLET PO SCH ×2 (09:00→10:09)
[2021-01-22 09:21] VITALS: BP 159/76
[2021-01-22] MEDS: HEPARIN 5,000 UNIT VIAL SQ SCH (10:08)
[2021-01-22] MEDS: LOSARTAN 100 MG TABLET PO SCH (10:09)
[2021-01-22] MEDS: FAMOTIDINE 20MG VIAL IV SCH (10:09)
[2021-01-22] MEDS: GABAPENTIN 300 MG CAPSULE PO SCH ×2 (10:10→14:12)
[2021-01-22] MEDS: FERROUS SULFATE 325 MG TABLET.DR PO SCH ×2 (10:10→14:12)
[2021-01-22 11:47] VITALS: BP 160/68
[2021-01-22] MEDS: HYDRALAZINE HCL 10 MG TABLET PO PRN (16:18)
[2021-01-22] MEDS: VANCOMYCIN 500MG+NS 100ML IVPB IV SCH (16:19)
[2021-01-22 16:42] VITALS: BP 180/58
[2021-03-22] MEDS ORDERED: PANT40TA54 PO (12:24)
[2021-03-22] MEDS ORDERED: ASCO500T10 PO (12:24)
[2021-03-22] MEDS ORDERED: AMIO200T68 PO (12:24)
[2021-03-22] MEDS ORDERED: METO5TAB2 PO (12:24)
[2021-03-22] MEDS ORDERED: DRON10CA5 PO (12:24)
[2021-03-22] MEDS ORDERED: GABA-533 PO (12:24)
[2021-03-22] MEDS ORDERED: DIPH25TA20 PO (12:24)
[2021-03-22] MEDS ORDERED: DARB100D SQ (12:24)
[2021-03-22] MEDS ORDERED: FLUD0.1T2 PO (12:24)
[2021-03-22] MEDS ORDERED: HYDR-3420 PO (12:24)
[2021-03-22] MEDS ORDERED: FOLI0.8T22 PO (12:24)
== END 2021-01-22 20:35 | DRG 853 ==
LOC: EDH 15:21 → OBSVTOIN 18:17 → EDHIP 18:17 → INTOOBSV 18:17 → 3CH 21:13 → 4CH 01-18 18:52
PROVIDERS: ADMIT Internal Medicine Pulmonary Disease; ATTEND Internal Medicine Pulmonary Disease
PROC: 5A1D70Z Performance of Urinary Filtration, Intermittent, Less than 6 Hours Per Day (ICD-10-PCS; 2021-01-11)
PROC: 5A1D70Z Performance of Urinary Filtration, Intermittent, Less than 6 Hours Per Day (ICD-10-PCS; 2021-01-14)
PROC: 5A1D70Z Performance of Urinary Filtration, Intermittent, Less than 6 Hours Per Day (ICD-10-PCS; 2021-01-16)
PROC: 0QB10ZZ Excision of Sacrum, Open Approach (ICD-10-PCS; principal; 2021-01-17 14:34)
PROC: 0D1N4Z4 Bypass Sigmoid Colon to Cutaneous, Percutaneous Endoscopic Approach (ICD-10-PCS; 2021-01-17 14:34)
PROC: 5A1D70Z Performance of Urinary Filtration, Intermittent, Less than 6 Hours Per Day (ICD-10-PCS; 2021-01-18)
PROC: 5A12012 Performance of Cardiac Output, Single, Manual (ICD-10-PCS; 2021-01-21)
PROC: 5A1D70Z Performance of Urinary Filtration, Intermittent, Less than 6 Hours Per Day (ICD-10-PCS; 2021-01-21)
DX: A41.9 Sepsis, unspecified organism (principal); L89.154 Pressure ulcer of sacral region, stage 4; N18.6 End stage renal disease; I13.2 Hypertensive heart and chronic kidney disease with heart failure and with stage 5 chronic kidney disease, or end stage renal disease; I50.32 Chronic diastolic (congestive) heart failure; M46.28 Osteomyelitis of vertebra, sacral and sacrococcygeal region; Z16.24 Resistance to multiple antibiotics; E11.51 Type 2 diabetes mellitus with diabetic peripheral angiopathy without gangrene; E11.22 Type 2 diabetes mellitus with diabetic chronic kidney disease; E11.69 Type 2 diabetes mellitus with other specified complication; Z20.822 Contact with and (suspected) exposure to COVID-19; E78.00 Pure hypercholesterolemia, unspecified; D64.9 Anemia, unspecified; N49.3 Fournier gangrene; F41.9 Anxiety disorder, unspecified; G89.29 Other chronic pain; I25.10 Atherosclerotic heart disease of native coronary artery without angina pectoris; E78.5 Hyperlipidemia, unspecified; L89.622 Pressure ulcer of left heel, stage 2; L89.210 Pressure ulcer of right hip, unstageable; L89.320 Pressure ulcer of left buttock, unstageable; L89.222 Pressure ulcer of left hip, stage 2; L89.610 Pressure ulcer of right heel, unstageable; B95.2 Enterococcus as the cause of diseases classified elsewhere; B96.5 Pseudomonas (aeruginosa) (mallei) (pseudomallei) as the cause of diseases classified elsewhere; B96.1 Klebsiella pneumoniae [K. pneumoniae] as the cause of diseases classified elsewhere; E66.01 Morbid (severe) obesity due to excess calories; R53.81 Other malaise; L08.9 Local infection of the skin and subcutaneous tissue, unspecified; R62.7 Adult failure to thrive; Z68.27 Body mass index [BMI] 27.0-27.9, adult; I25.2 Old myocardial infarction; Z99.2 Dependence on renal dialysis; Z74.01 Bed confinement status; Z79.4 Long term (current) use of insulin; Z79.01 Long term (current) use of anticoagulants; Z79.899 Other long term (current) drug therapy; Z86.74 Personal history of sudden cardiac arrest; Z91.15 Patient's noncompliance with renal dialysis; Z91.19 Patient's noncompliance with other medical treatment and regimen; Z83.3 Family history of diabetes mellitus; Z82.49 Family history of ischemic heart disease and other diseases of the circulatory system
CPT/HCPCS: 36415; 36600; 71045; 72195; 76604; 78452; 78580; 80048; 80053; 80202; 82435; 82550; 82803; 82947; 82948; 83605; 83735; 83874; 84100; 84132; 84145; 84295; 84484; 85018; 85025; 85027; 85378; 85610; 85651; 85730; 86140; 86704; 86706; 86850; 86900; 86901; 86923; 87040; 87070; 87076; 87077; 87186; 87205; 87340; 87635; 90935; 92950; 93005; 93017; 93306; 93356; 93970; 96374; A4344; A5063; A9500; A9540; G0378; J0690; J1170; J1644; J1885; J2001; J2185; J2310; J2405; J2704; J2710; J2785; J3010; J3370; J3490; J7040; J7070

== ENCOUNTER → 2021-05-01 | Day surgery (SDC) | payer MEDICARE, OTHER ==
[~2021-05-01] MED LIST changes: +0.9%NACL 1000ML 1,000 ML IV ONE; -ALPR0.5T8 PO; -APIX5TAB PO; -ATOR40TA69 PO; -CLOT15CR23 TP; -DILT180C63 PO; +FENTANYL CITRATE PF 50 MCG/1 ML 2ML VIAL ONE; -FLUC100T8 PO; -GABA300S PO; +HEPARIN 10,000 UNIT/10ML (1,000 UNIT/ML) VIAL ONE; -HYDR-4453 PO; -INSU3INS9 SQ; +IODIXANOL 320 MG/ML 100 ML VIAL ONE; -LID5O TP; -LIDO30CR20 TP; +LIDOCAINE HCL 400MG/20ML VIAL ONE; -LOSA100T2 PO; -METO50 PO; +MIDAZOLAM HCL 1 MG/ML 2ML VIAL ONE; +NITROGLYCERIN 50MG VIAL ONE; -ONDA-105 PO; -TERB30CR8 TP
[2021-05-01 16:40] VITALS: BP 160/60
[2021-05-01 16:55] VITALS: BP 160/60
[2021-05-01 17:05] VITALS: BP 158/60
== END | disposition home or self-care (01) ==
LOC: DAH 12:23
PROVIDERS: ATTEND Internal Medicine Nephrology
DX: T82.868A Thrombosis due to vascular prosthetic devices, implants and grafts, initial encounter (principal); T82.858A Stenosis of other vascular prosthetic devices, implants and grafts, initial encounter; I77.0 Arteriovenous fistula, acquired; Z20.822 Contact with and (suspected) exposure to COVID-19; E11.22 Type 2 diabetes mellitus with diabetic chronic kidney disease; I12.0 Hypertensive chronic kidney disease with stage 5 chronic kidney disease or end stage renal disease; N18.6 End stage renal disease; E78.5 Hyperlipidemia, unspecified; D64.9 Anemia, unspecified; Z79.01 Long term (current) use of anticoagulants; Z79.899 Other long term (current) drug therapy; Y83.2 Surgical operation with anastomosis, bypass or graft as the cause of abnormal reaction of the patient, or of later complication, without mention of misadventure at the time of the procedure
CPT/HCPCS: 36905; 36907; 82948; A4216; A4222; A4223 ×2; A4663; C1725; C1757; C1769 ×2; C1894 ×3; J1644 ×2; J3010; J3490; J7030; Q9967; 99156; 99157; J2250